=== PATIENT | female | born 1955 | race Caucasian/White ===

== ENCOUNTER → 2019-11-25 14:18 | Outpatient (BNVA) | payer BC, SELFPAY | PROVIDERS: Visit Provider Family Medicine | DX: E11.9 Type 2 diabetes mellitus without complications (principal); K21.9 Gastro-esophageal reflux disease without esophagitis; I10 Essential (primary) hypertension | CPT/HCPCS: 80053; 80061; 84443 ==

== ENCOUNTER → 2020-10-10 10:18 | Outpatient (BNVA) | payer BC, SELFPAY | PROVIDERS: Visit Provider Family Medicine | DX: E11.9 Type 2 diabetes mellitus without complications (principal); E78.2 Mixed hyperlipidemia; I10 Essential (primary) hypertension | CPT/HCPCS: 80053; 80061; 83036; 84443; 85025 ==

== ENCOUNTER → 2021-01-04 09:55 | Outpatient (BNVA) | payer BC, SELFPAY | PROVIDERS: Visit Provider Family Medicine | DX: M79.675 Pain in left toe(s) (principal) | CPT/HCPCS: 73630 ==

== ENCOUNTER 2021-03-28 07:43 | Outpatient (CLI) | payer BC, SELFPAY ==
--- NOTE | 2021-03-28 08:00 | US_ITS ---
WS: [id number] INDICATION: Left foot pain TECHNIQUE: Ultrasound left foot FINDINGS: Normal phalangeal soft tissues. No solid phalangeal lesions suspicious for Martin's neuroma . Hypoechoic collection that appears to represent benign fluid with through transmission along the fore foot at the level of the metatarsals measuring 5.2 x 3.6 x 4.5 mm. This likely represents fluid along the tendon sheath. US/US soft tissue/extremity 58032 IMPRESSION: 1. No evidence of solid phalangeal lesion or Martin's neuroma. 2. Hypoechoic fluid collection along the forefoot at the level of the metatars als likely represents benign fluid along the tendon sheath between the second a nd third metatarsal. 3. No other suspicious findings.
== END 2021-03-28 07:44 | disposition home or self-care (01) ==
LOC: RAD 07:45
PROVIDERS: Visit Provider Podiatrist Foot & Ankle Surgery
DX: M79.605 Pain in left leg (principal)
CPT/HCPCS: 76882

== ENCOUNTER → 2021-04-26 18:56 | Outpatient (BNVA) | payer BC, SELFPAY | PROVIDERS: Visit Provider Family Medicine | DX: Z09 Encounter for follow-up examination after completed treatment for conditions other than malignant neoplasm (principal); E04.9 Nontoxic goiter, unspecified; I10 Essential (primary) hypertension; R91.8 Other nonspecific abnormal finding of lung field | CPT/HCPCS: 84439; 84443; 84481 ==

== ENCOUNTER → 2021-06-07 09:58 | Outpatient (BNVA) | payer BC, SELFPAY | PROVIDERS: PCP Family Medicine; Visit Provider Internal Medicine Critical Care Medicine | DX: R91.8 Other nonspecific abnormal finding of lung field (principal); Z20.822 Contact with and (suspected) exposure to COVID-19 | CPT/HCPCS: 87635 ==

== ENCOUNTER 2021-06-12 06:58 | Day surgery (SDC) | payer BC, SELFPAY ==
[2021-06-08 08:30] VITALS: BMI 39.1
[2021-06-12 07:13] VITALS: BP 112/80; PULSE 137; RESP 24; TEMP 36.8; O2SAT 94
--- NOTE | 2021-06-12 07:26 | ECG_ITS ---
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 Measurements Intervals [place] Rate: 169 P: [place]: QRS: 53 QRSD: 112 T: -62 QT: 251 QTc: 422 Interpretive Statements ATRIAL FIBRILLATION WITH RAPID VENTRICULAR RESPONSE INCOMPLETE RIGHT BUNDLE BRANCH BLOCK [90+ ms QRS DURATION, TERMINAL R IN V1/V2, 40+ ms S IN I/aVL/V4/V5/V6] ST DEVIATION AND MODERATE T-WAVE ABNORMALITY, CONSIDER LATERAL ISCHEMIA [-0.1+ mV T-WAVE IN I/aVL/V5/V6] CRITICAL TEST RESULT No previous ECG available for comparison Electronically Signed On 06-12-2021 23:48:13 CDT by Shari Starks M.D. [id number]
[2021-06-12 07:54] LABS: Glucose Point of Care 118 mg/dL (70-110)
[2021-06-12 08:13] VITALS: BP 117/84; PULSE 165; RESP 25; O2SAT 96
--- NOTE | 2021-06-12 08:29 | ANES.PREANE2 ---
Pre-Anesthetic Assessment Pre-Anesthetic Assessment: Height/Weight: Height 1.7 m Weight 113.398 kg Temp Pulse Resp BP Pulse Ox 98.2 F 165 H 25 H 117/84 96 06/12/21 07:13 06/12/21 08:13 06/12/21 08:13 06/12/21 08:13 06/12/21 08:13 Preop Diagnosis: Suspected lung cancer Proposed Procedure: Operation Date: 06/12/21 08:25 Proposed Procedures p Ebus(Not Applicable) - Chrissy Ricci MD Was Beta Steven taken within 24 hours: N/A Was Clonidine taken within 24 hours: N/A Last intake: Intake Last Liquid Date 06/11/21 Last Liquid Time 21:00 Last Solid Date 06/11/21 Last Solid Time 21:00 Social: Social History: Tobacco and No alcohol Exam: Pre-Anes Outpt Exam: alert, oriented x 3 and clear to auscultation bilaterally Additional Exam Findings (including area of procedure): tachy, sounds regular Airway: Submandibular: WNL Cervical ROM: WNL MP: 2 Dentition: False Pulmonary: Pulmonary: COPD Comments: Lung mass CV/HEM: CV/HEM: Afib and HTN Comments: EKG showed a.fib with RVR (rate 179) GI: GI: GERD Metabolic: Metabolic: DM and Morbid obesity Neuropsych: Neuropsych: Anxiety Anesthetic Plan: ASA status: 3 Anesthesia: Anesthesia Evaluation Other: Case postponed, gave bolus of IV NS 500mls, bolused 10mg Cardizem--brief hypotension with bolus--patient to ED PFSH Anesthesia PFSH: Medical History Anxiety Diabetes GERD (gastroesophageal reflux disease) Hyperlipidemia Hypertension Surgical History History of cholecystectomy History of hysterectomy Family History Other Cancer Social History Smoking and tobacco status: former smoker Quit status (tobacco): has quit using tobacco Year quit tobacco: 2015 Former quit date comment: Hx of 1 PPD x 45 Years Second hand smoke exposure: No Smoking risk assessment/counseling performed?: No Alcohol intake: never Counseling given: No Counseling given: No Lives independently: Yes Household members: spouse Marital status: Current occupational status: retired History of recent travel: No Current gender identity: Female Data Anesthesia Other Labs: Laboratory Results - last 48 hr 06/12/21 07:51 POC Glucose 118 H Cardiac Studies: No Data to Display
== END 2021-06-12 08:40 | disposition home or self-care (01) ==
PROVIDERS: PCP Family Medicine; Visit Provider Internal Medicine Critical Care Medicine
PROC: BB4BZZZ Ultrasonography of Pleura (ICD-10-PCS; principal; 2021-06-12 08:15)
DX: Z01.818 Encounter for other preprocedural examination (principal); R91.1 Solitary pulmonary nodule; J44.9 Chronic obstructive pulmonary disease, unspecified; I48.91 Unspecified atrial fibrillation; I10 Essential (primary) hypertension; K21.9 Gastro-esophageal reflux disease without esophagitis; E11.9 Type 2 diabetes mellitus without complications; E66.01 Morbid (severe) obesity due to excess calories; Z68.39 Body mass index [BMI] 39.0-39.9, adult; F41.9 Anxiety disorder, unspecified; E78.5 Hyperlipidemia, unspecified; Z87.891 Personal history of nicotine dependence
CPT/HCPCS: 36416; 82962; 93005; 96374; J3490

== ENCOUNTER 2021-06-12 08:33 | Inpatient (IN) | payer BC, SELFPAY ==
[2021-06-12] VITALS (97 sets, daily range): BP systolic 86–159; BP diastolic 57–110; PULSE 0–164; RESP 16–41; TEMP 36.6–37.3; O2SAT 82–98; BMI 36.0
--- NOTE | 2021-06-12 08:40 | XR_ITS ---
WS: [id number] XR chest 1V portable [id number] REASON FOR EXAM: dyspnea/cough FINDINGS: Tortuous thoracic aorta with heart size at the upper limits of normal. Calcified granulomatous changes in both hemithoraces. Blunting of the left costophrenic angle. Interstitial infiltrative changes of unknown chronicity in t he left lung base and periphery of the mid left lung. No definite abnormality in the right lung. Degenerative changes in the thoracic spine and shoulders. XR/XR chest 1V portable [id number] IMPRESSION: Infiltrate of unknown chronicity in the left lower lung but compatible with acu te or subacute pneumonitis. Possible small left pleural effusion.
--- NOTE | 2021-06-12 08:40 | ECG_ITS ---
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 Measurements Intervals [place] Rate: 163 P: [place]: QRS: 58 QRSD: 84 T: -87 QT: 257 QTc: 423 Interpretive Statements ATRIAL FIBRILLATION WITH RAPID VENTRICULAR RESPONSE WITH ABERRANT CONDUCTION OR VENTRICULAR PREMATURE COMPLEXES NONSPECIFIC ST & T-WAVE ABNORMALITY CRITICAL TEST RESULT Compared to ECG 06/12/2021 07:42:44 Ventricular premature complex(es) now present Aberrant conduction of supraventricular beat(s) now present Incomplete right bundle-branch block no longer present Possible ischemia no longer present T-wave abnormality still present Electronically Signed On 06-12-2021 23:11:08 CDT by Shari Starks M.D. [id number]
[2021-06-12 08:56] LABS: Basophils % 0.3 %; Eosinophils % 0.3 %; Hematocrit 33.5 % (37.0-47.0); Hemoglobin 11.1 g/dL (11.5-15.3); Lymphocytes # 1.9 10^3/uL (0.8-4.8); Lymphocytes % 15.2 %; Mean Corpuscular HGB Conc 33.1 g/dL (30.0-36.0); Mean Corpuscular Hemoglobin 30.3 pg (28.0-34.0); Mean Corpuscular Volume 91.5 fl (81-99); Mean Platelet Volume 9.7 fL (7.4-10.4); Neutrophils # 9.47 10^3/uL (1.8-7.7); Neutrophils % 75.6 %; Nucleated Red Blood Cells % 0 %; Platelet Count 419 10^3/cmm (130-400); Red Blood Count 3.66 10^6/uL (4.1-5.3); Red Cell Distribution Width 12.5 % (12.1-15.1); White Blood Count 12.5 10^3/uL (4.0-10.0)
[2021-06-12 09:17] LABS: Alanine Aminotransferase 26 U/L (0-33); Albumin Level 3.4 g/dL (3.5-5.2); Alkaline Phosphatase 104 IU/L (35-105); Anion Gap 16.6 (5-19); Aspartate Amino Transferase 13 U/L (0-32); Blood Urea Nitrogen 20 mg/dL (8-23); Calcium 8.7 mg/dL (8.5-10.5); Carbon Dioxide 25 mmol/L (22-29); Chloride 103 mmol/L (98-107); Globulin 2.8 g/dL (1.3-4.6); Glomerular Filtration Rate 124.2 mL/min (90-130); Glucose 119 mg/dL (65-115); Osmolality Calculated 294 mOsm/kg (285-295); Potassium 4.6 mmol/L (3.5-5.1); Sodium 140 mmol/L (136-145); Total Bilirubin 0.2 mg/dL (0.15-1.2); Total Protein 6.2 g/dL (6.6-8.7)
[2021-06-12 09:25] LABS: Troponin(5th) Baseline 16 ng/L (0-10)
--- NOTE | 2021-06-12 09:57 | W.ED.CHESTPA ---
HPI - Chest Pain General: Chief Complaint: Chest Pain Stated Complaint: fast HR Time Seen by Provider: 06/12/21 08:36 History of Present Illness: HPI narrative: 66-year-old female presents emergency room from the GI Lab. On arrival there she is complaining of chest pain and palpitations and is in A. fib with RVR. Prior to arrival here she was given 10 mg of IV Cardizem with minimal response. She states she has felt poorly for the last several days including having palpitations some mild orthopnea. She is not previously been known to have atrial fibrillation. MD complaint: chest discomfort Pertinent past history: coronary artery disease Onset (ago): hour(s) Timing of current episode: constant Prior episodes: No Onset: during rest Pain location: substernal Pain radiation: left arm Severity: moderate Quality: heaviness Relieving factors: nothing Exacerbating factors: nothing Associated symptoms: Reports dyspnea, nausea and palpitations; Deny abdominal pain, diaphoresis, fever(s), leg edema, sense of impending doom, syncope or vomiting Treatment prior to arrival: other (10 mg diltiazem IV) Review of Systems Const: Denies: fever(s) or diaphoresis ENMT: Denies: throat pain, ear or mastoid pain, nasal discharge or nasal congestion Card: Reports: palpitations; Denies: syncope Resp: Reports: dyspnea GI: Reports: nausea; Denies: abdominal pain or vomiting : Denies: flank pain, difficulty voiding, dysuria, urinary frequency or urinary urgency Skin/Breast: Denies: rash or pruritus PFS ED PFSH: Medical History (Updated 06/12/21 @ 15:11 by Cj Polk DO) Anxiety Diabetes GERD (gastroesophageal reflux disease) Hyperlipidemia Hypertension Mass of lung Surgical History History of cholecystectomy History of hysterectomy Family History Other Cancer Social History Smoking and tobacco status: former smoker Quit status (tobacco): has quit using tobacco Year quit tobacco: 2015 Former quit date comment: Hx of 1 PPD x 45 Years Second hand smoke exposure: No Smoking risk assessment/counseling performed?: No Alcohol intake: never Counseling given: No Counseling given: No Lives independently: Yes Household members: spouse Marital status: Current occupational status: retired History of recent travel: No Current gender identity: Female Physical Exam Const: COMMON NORMALS: no acute distress GENERAL APPEARANCE: cooperative and comfortable ORIENTATION/CONSCIOUSNESS: Yes awake, Yes oriented to person, Yes oriented to place and Yes oriented to time HENMT: COMMON NORMALS: normocephalic, atraumatic and hearing grossly normal bilaterally HEAD & SCALP: normocephalic and atraumatic Resp: AUSCULTATION: wheezes and diminished lung sounds Cardio: COMMON NORMALS: No murmurs present (Cardio) RATE: tachycardic RHYTHM: abnormal rhythm irregularly irregular GI: COMMON NORMALS: Soft to palpation and No hepatosplenomegaly present AUSCULTATION: Yes normoactive bowel sounds PALPATION: Yes Soft to palpation, No Tenderness to palpation present (GI), No Guarding due to palpation present (GI) and Yes No hepatosplenomegaly present Extremity: COMMON NORMALS: normal to inspection, capillary refill normal, no clubbing, cyanosis or edema, no calf tenderness and no pedal edema Neuro: SENSORIUM/ORIENTATION: Yes oriented to person, Yes oriented to place and Yes oriented to time Skin: COMMON NORMALS: no rashes or lesions noted GENERAL SKIN EXAM: no rashes or lesions noted Course Vital Signs: Vital signs: Vital Signs Temperature 97.9 F 06/12/21 08:34 Pulse Rate 144 H 06/12/21 14:05 Respiratory Rate 33 H 06/12/21 14:05 Blood Pressure 112/97 06/12/21 14:05 Pulse Oximetry 90 06/12/21 14:05 MDM - Chest Pain MDM Narrative: Medical decision making narrative: Initially rebolused with Cardizem and started to drip she maxed out on that and was not rate controlled then we changed to esmolol. This also did not control her rate. Labs imaging and EKGs reviewed as on the chart discussed with Dr. Satniago will admit. With a time we maxed out on the esmolol he had seen the patient we changed amiodarone and digoxin patient will be admitted to the ICU orders are written. Lab Data: Labs: Lab Results 06/12/21 06/12/21 06/12/21 Range/Units 08:45 08:45 08:45 WBC 12.5 H (4.0-10.0) 10^3/ uL RBC 3.66 L (4.1-5.3) 10^6/u L Hgb 11.1 L (11.5-15.3) g/dL Hct 33.5 L (37.0-47.0) % MCV 91.5 (81-99) fl MCH 30.3 (28.0-34.0) pg MCHC 33.1 (30.0-36.0) g/dL RDW 12.5 (12.1-15.1) % Plt Count 419 H (130-400) 10^3/c mm MPV 9.7 (7.4-10.4) fL Neut % (Auto) 75.6 % Lymph % (Auto) 15.2 % Owen % (Auto) 8.0 % Eos % (Auto) 0.3 % Baso % (Auto) 0.3 % Neut # (Auto) 9.47 H (1.8-7.7) 10^3/u L Lymph # (Auto) 1.9 (0.8-4.8) 10^3/u L Owen # (Auto) 1.0 H (0.2-0.9) 10^3/u L Eos # (Auto) 0.0 (0.0-0.8) 10^3/u L Baso # (Auto) 0.0 (0.0-0.1) 10^3/u L Nucleated RBC % (a uto) 0 % Nucleated RBCs # 0.0 /100WBC PT (12.1-14.9) SECO NDS INR (0.8-1.2) APTT (23.9-36.7) SECO NDS Sodium 140 (136-145) mmol/L Potassium 4.6 (3.5-5.1) mmol/L Chloride 103 (98-107) mmol/L Carbon Dioxide 25 (22-29) mmol/L Anion Gap 16.6 (5-19) BUN 20 (8-23) mg/dL Creatinine 0.5 (0.5-0.9) mg/dL GFR Calculation 124.2 (90-130) mL/min Glucose 119 H (65-115) mg/dL Calculated Osmolal ity 294 (285-295) mOsm/k g Calcium 8.7 (8.5-10.5) mg/dL Magnesium (1.7-2.3) mg/dL Total Bilirubin 0.2 (0.15-1.2) mg/dL AST 13 (0-32) U/L ALT 26 (0-33) U/L Alkaline Phosphata se 104 (35-105) IU/L Troponin T Baselin e 16 H (0-10) ng/L Troponin T 120 Min [place] (0-10) ng/L Delta Troponin T (0-10) ABS# Total Protein 6.2 L (6.6-8.7) g/dL Albumin 3.4 L (3.5-5.2) g/dL Globulin 2.8 (1.3-4.6) g/dL 06/12/21 06/12/21 06/12/21 Range/Units 08:45 10:28 10:28 WBC (4.0-10.0) 10^3/ uL RBC (4.1-5.3) 10^6/u L Hgb (11.5-15.3) g/dL Hct (37.0-47.0) % MCV (81-99) fl MCH (28.0-34.0) pg MCHC (30.0-36.0) g/dL RDW (12.1-15.1) % Plt Count (130-400) 10^3/c mm MPV (7.4-10.4) fL Neut % (Auto) % Lymph % (Auto) % Owen % (Auto) % Eos % (Auto) % Baso % (Auto) % Neut # (Auto) (1.8-7.7) 10^3/u L Lymph # (Auto) (0.8-4.8) 10^3/u L Owen # (Auto) (0.2-0.9) 10^3/u L Eos # (Auto) (0.0-0.8) 10^3/u L Baso # (Auto) (0.0-0.1) 10^3/u L Nucleated RBC % (a uto) % Nucleated RBCs # /100WBC PT 14.00 (12.1-14.9) SECO NDS INR 1.05 (0.8-1.2) APTT 36.0 (23.9-36.7) SECO NDS Sodium (136-145) mmol/L Potassium (3.5-5.1) mmol/L Chloride (98-107) mmol/L Carbon Dioxide (22-29) mmol/L Anion Gap (5-19) BUN (8-23) mg/dL Creatinine (0.5-0.9) mg/dL GFR Calculation (90-130) mL/min Glucose (65-115) mg/dL Calculated Osmolal ity (285-295) mOsm/k g Calcium (8.5-10.5) mg/dL Magnesium 1.3 L (1.7-2.3) mg/dL Total Bilirubin (0.15-1.2) mg/dL AST (0-32) U/L ALT (0-33) U/L Alkaline Phosphata se (35-105) IU/L Troponin T Baselin e (0-10) ng/L Troponin T 120 Min [place] 14.51 H (0-10) ng/L Delta Troponin T -1.49 L (0-10) ABS# Total Protein (6.6-8.7) g/dL Albumin (3.5-5.2) g/dL Globulin (1.3-4.6) g/dL Discharge Plan Discharge Patient Disposition: Admitted As Inpatient Admit Provider: Efren Adorno Clinical Impression: Atrial fibrillation, Mass of lung, Diabetes, Hypertension Condition: Stable Coding Level of Care Code ED 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
[2021-06-12] MEDS: esmolol drip 2,500 MG/250 ML PREMIX 31.3 MG IV (10:24)
--- NOTE | 2021-06-12 11:05 | USCV_ITS ---
Carolann Murguia Age: 66 Gender: F : 1955 Exam Date: 06/12/2021 11:36 Ordering Phys: Cj Polk DO Technologist: Luca Briones [place] [facility] [place]: PERCARDIAL EFFUSION BP: / HR: Rhythm: Sinus Technical Quality: MEASUREMENTS (Male / Female) Normal Values FINDINGS Left Ventricle Normal left ventricular cavity size. Normal left ventricular systolic function. Left ventricular ejection fraction is estimated at 55 %. Right Ventricle Moderately increased right ventricular size. Right Atrium Moderately increased right atrial size. Left Atrium Mitral Valve Moderately thickened mitral valve. No mitral valve stenosis. Mild mitral valve regurgitation. Aortic Valve Tricuspid Valve Pulmonic Valve Pericardium Aorta CONCLUSIONS Limited echo 1-Normal left ventricular cavity size. Normal left ventricular systolic function. Left ventricular ejection fraction is estimated at 55 %. 2-Moderately increased right ventricular size. 3-Moderately increased right atrial size. 4-Moderately thickened mitral valve. No mitral valve stenosis. Mild mitral valve regurgitation. 5-There is no pericardial effusion. 6-There are no prior echocardiogram studies to compare. Vimal Miller MD (Electronically Signed) Final Date: 12 June 2021 20:08 S
[2021-06-12 11:09] LABS: Troponin 5 2HR 14.51 ng/L (0-10)
--- NOTE | 2021-06-12 11:17 | PM.HP ---
Providers/Chief Complaint Primary Care Provider: Isabella Perez MD Chief Complaint: fast HR History of Present Illness Carolann Murguia is a 66 year old female who reports she has not felt good in quite some time but it has been worse in the last 3 weeks. She reports she has had intermittent chest discomfort, shortness of breath, dizziness. She has recently been diagnosed with a left lung mass, with pericardial involvement and a small left pleural effusion. This was diagnosed by CT chest on April 22 at outside hospital. This 5.5 cm mass involving the left hilum was noted. No pulmonary embolism was present. A positive nodule on PET scan was also noted in the left vocal cord. Left hilar mass had activity on PET as well. Upon reporting to GI lab for bronchoscopy and possible biopsy today an elevated heart rate was noted. She denied any past history of atrial fibrillation or tachyarrhythmia. She was referred to the emergency department after 10 mg of Cardizem were given. In the emergency department, Cardizem drip was tried without improvement of heart rate so esmolol was initiated. I have been asked to see the patient for admission to ICU, and further treatment of her tachyarrhythmia. She denies any recent fevers. She has a recent negative Covid PCR for her bronchoscopy. She reports no exposure to Covid. She has not been vaccinated. Review of Systems General: Reports: 10 or more systems reviewed and unremarkable except in HPI and below Const: Reports: malaise; Denies: fever(s) or chills Eyes: Denies: change in vision ENMT: Denies: throat pain Card: Reports: chest pain, palpitations and lightheadedness Resp: Reports: dyspnea GI: Reports: nausea and constipation; Denies: abdominal pain or vomiting : Denies: flank pain Musc: Denies: neck pain Skin/Breast: Denies: rash Neuro: Reports: dizziness; Denies: headache(s) Psych: Reports: anxiety and depression Endo: Denies: polyuria [place]/Lymph: Denies: easy bruising All/Imm: Denies: urticaria Medications/Allergies Home Medications Medication Instructions Recorded Confirmed Last Taken Type aspirin 81 mg tablet,delayed 81 mg PO DAILY 05/31/21 06/12/21 06/10/21 History release hydrochlorothiazide 25 mg tablet 25 mg PO DAILY #30 tab 05/31/21 06/12/21 06/11/21 Rx olmesartan 20 mg tablet 20 mg PO DAILY #30 tab 05/31/21 06/12/21 06/11/21 Rx amoxicillin-pot clavulanate 1 tab PO BID 06/12/21 06/12/21 06/10/21 History buspirone 5 mg PO DAILY 06/12/21 06/12/21 06/11/21 History dexlansoprazole [Dexilant] 60 mg PO DAILY 06/12/21 06/12/21 06/11/21 History liraglutide [Victoza 3-Etienne] 1.8 mg SUBCUT DAILY 06/12/21 06/12/21 06/11/21 History metformin See Rx Instructions .ROUTE .COMPLEX 06/12/21 06/12/21 06/11/21 History paroxetine HCl 20 mg PO DAILY 06/12/21 06/12/21 06/11/21 History rosuvastatin 10 mg PO DAILY 06/12/21 06/12/21 06/11/21 History sucralfate 1 g PO QID 06/12/21 06/12/21 06/11/21 History Allergies Allergy/AdvReac Type Severity Reaction Status Date / Time cefdinir AdvReac stomach Verified 06/12/21 08:41 problems PFSH Acute PFSH: Medical History (Updated 06/12/21 @ 11:27 by Efren Adorno MD) Anxiety Diabetes GERD (gastroesophageal reflux disease) Hyperlipidemia Hypertension Mass of lung Surgical History History of cholecystectomy History of hysterectomy Family History Other Cancer Social History Smoking and tobacco status: former smoker Quit status (tobacco): has quit using tobacco Year quit tobacco: 2016 Former quit date comment: Hx of 1 PPD x 45 Years Second hand smoke exposure: No Smoking risk assessment/counseling performed?: No Alcohol intake: never Counseling given: No Counseling given: No Lives independently: Yes Household members: spouse Marital status: Current occupational status: retired History of recent travel: No Current gender identity: Female Vitals/I&O/Wt Last Vital Signs Temp 97.9 F 06/12/21 08:34 Pulse 155 H 06/12/21 10:10 Resp 22 H 06/12/21 10:10 BP 118/81 06/12/21 10:10 Pulse Ox 94 06/12/21 10:10 06/11/21 06/12/21 06/12/21 22:59 06:59 14:59 Intake Total 13.833 / 13.833 Balance 13.833 / 13.833 Weight last 48 hrs Weight 104.326 kg Physical Exam Narrative: EXAM NARRATIVE: General exam is an anxious white female, with elevated heart rate, who appears at least mildly short of breath. HEENT: Atraumatic and normocephalic. Oropharynx clear. Neck is supple no lymphadenopathy, thyromegaly Cardiovascular irregular, irregular with accelerated rate. No obvious murmur. Lungs diminished breath sounds bilaterally but no wheezes or crackles Abdomen is soft. Positive bowel sounds. Obese. No obvious organomegaly exam is deferred Extremities no cyanosis clubbing or edema, cap refill brisk Skin no rash Neuro no obvious focal deficits. Data : 06/12/21 08:45 06/12/21 08:45 Other data: EKG demonstrates atrial fibrillation with rapid ventricular response of approximately 145 with normal axis and nonspecific ST-T wave changes. Chest x-ray demonstrates obscuration of the left hemidiaphragm consistent with effusion/infiltrate. LFTs normal Troponin baseline of 16 with repeat of 14 Albumin 3.4 Calcium 8.7 Covid PCR June 07 not detected A&P Assessment and plan (1) Atrial fibrillation: With rapid ventricular rate TSH has already been checked Check magnesium Echocardiogram when able. For now echocardiogram to check for pericardial effusion. She has failed Cardizem. Esmolol is being titrated. Heart rate is still significantly high and blood pressure decreasing. Will give a small bolus of saline. Digoxin 500 mcg IV x1. I suspect we may need to initiate amiodarone if we do not see improvement in her heart rate following these measures. Continue serial troponins Heparin drip Consider cardiology consultation Status: Acute (2) Mass of lung: Undergoing work-up. Unfortunately did not have bronchoscopy and biopsy today. 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 Status: Acute (3) Constipation: Initiate MiraLAX twice daily Status: Acute (4) Diabetes: Sliding scale insulin Status: Acute Qualifiers: Diabetes mellitus type: type 2 Diabetes mellitus manager long term care insulin use: without manager long term care use Diabetes mellitus complication status: without complication Qualified Code(s): E11.9 - Type 2 diabetes mellitus without complications (5) Hypertension: Hold antihypertensives currently secondary to atrial fibrillation with rapid ventricular rate Status: Acute Qualifiers: Hypertension type: essential hypertension Qualified Code(s): I10 - Essential (primary) hypertension (6) Hyperlipidemia: Continue statin Status: Acute Qualifiers: Hyperlipidemia type: mixed hyperlipidemia Qualified Code(s): E78.2 - Mixed hyperlipidemia (7) Anxiety: continue home medications Status: Acute Additional A&P Information Full code Heparin for DVT prophylaxis Attestations Medical Necessity Statement*: Will need greater than 2 midnight stay for evaluation and treatment of atrial fibrillation with rapid ventricular rate. Time Spent in Patient Care: Greater than 35 minutes Critical Care Time: Critical Care Time (min): 64 Other Attestations: The high probability of a clinically significant, sudden or life threatening deterioration of the patient's [pulmonary, cardiac] system(s) required my full and direct attention, intervention and personal management. The critical care time is as shown. This time is in addition to time spent performing any reported procedures but includes the following: [x] Data and vital sign review and interpretation [x] Patient assessment, examination and intervention [x] Documentation [x] Medication orders and management Coding Level of Care Code Acute Data Integrity Consultant for [facility] Fwd Diagnoses Atrial fibrillation I48.91 Mass of lung R91.8 Constipation K59.00 Diabetes E11.9 Diabetes mellitus type: type 2 Diabetes mellitus penitentiary insulin use: without manager long term care use Diabetes mellitus complication status: without complication Hypertension I10 Hypertension type: essential hypertension Hyperlipidemia E78.2 Hyperlipidemia type: mixed hyperlipidemia Anxiety F41.9
[2021-06-12 11:22] LABS: Troponin 5 2HR Delta -1.49 ABS# (0-10)
[2021-06-12] MEDS: digoxin 250 mcg/ml INJ 2 mL 500 MCG IVP (11:42)
[2021-06-12] MEDS: sodium chloride 0.9% 500 ML IV (11:43)
[2021-06-12] MEDS: amiodarone 50 mg/mL SDV 3 mL 150 MG IVP (11:52)
[2021-06-12 12:12] LABS: Magnesium 1.3 mg/dL (1.7-2.3)
--- NOTE | 2021-06-12 12:18 | PM.CONSULT ---
Providers/Reason For Consult Consulting Physician/Specialty*: Cardiology Reason for Consult*: Atrial fibrillation with rapid ventricle response Attending Physician: Efren Adorno MD Primary Care Provider: Isabella Perez MD History of Present Illness History of Present Illness Carolann Murguia is a 66 year old female past medical history significant for hypertension diabetes mellitus obesity questionable sleep apnea and history of possible paroxysmal atrial fibrillation recently was diagnosed with lung tumor for that reason patient came in today for bronchoscopy and biopsy she was noted to be in A. fib with rapid ventricle response. It is the reason we have been asked to participate in her care. Medicine colleagues has tried calcium channel marie and beta-marie but heart rate did not slow down. When I saw the patient he was already on amiodarone drip and was given digoxin. According to the patient for the past few days she has been noticing worsening of shortness of breath and palpitation and racing of the heart she did not pay much attention. She also told me that for the past few years she has been feeling off-and-on palpitation pounding or racing of the heart. She is also very nervous and stressed out about her tumor. Review of Systems General: Reports: 10 or more systems reviewed and unremarkable except in HPI and below Const: Reports: malaise; Denies: fever(s), chills or diaphoresis Eyes: Denies: change in vision ENMT: Denies: throat pain, ear or mastoid pain, nasal discharge or nasal congestion Card: Reports: chest pain, palpitations and lightheadedness; Denies: syncope Resp: Reports: dyspnea GI: Reports: nausea and constipation; Denies: abdominal pain or vomiting : Denies: flank pain, difficulty voiding, dysuria, urinary frequency or urinary urgency Musc: Denies: neck pain Skin/Breast: Denies: rash or pruritus Neuro: Reports: dizziness; Denies: headache(s) Psych: Reports: anxiety and depression Endo: Denies: polyuria Jessee/Lymph: Denies: easy bruising All/Imm: Denies: urticaria Meds/Allergies Home Medications and Allergies Home Medications Medication Instructions Recorded Confirmed Last Taken Type aspirin 81 mg tablet,delayed 81 mg PO DAILY 05/31/21 06/12/21 06/10/21 History release hydrochlorothiazide 25 mg tablet 25 mg PO DAILY #30 tab 05/31/21 06/12/21 06/11/21 Rx olmesartan 20 mg tablet 20 mg PO DAILY #30 tab 05/31/21 06/12/21 06/11/21 Rx amoxicillin-pot clavulanate 1 tab PO BID 06/12/21 06/12/21 06/10/21 History buspirone 5 mg PO DAILY 06/12/21 06/12/21 06/11/21 History dexlansoprazole [Dexilant] 60 mg PO DAILY 06/12/21 06/12/21 06/11/21 History liraglutide [Victoza 3-Etienne] 1.8 mg SUBCUT DAILY 06/12/21 06/12/21 06/11/21 History metformin See Rx Instructions .ROUTE .COMPLEX 06/12/21 06/12/21 06/11/21 History paroxetine HCl 20 mg PO DAILY 06/12/21 06/12/21 06/11/21 History rosuvastatin 10 mg PO DAILY 06/12/21 06/12/21 06/11/21 History sucralfate 1 g PO QID 06/12/21 06/12/21 06/11/21 History Allergies Allergy/AdvReac Type Severity Reaction Status Date / Time cefdinir AdvReac stomach Verified 06/12/21 08:41 problems Current Medications Current Medications Generic Name Dose Route Start Last Admin Trade Name Yovaniq PRN Reason Stop Dose Admin Diltiazem HCl 125 mg/ Sodium 125 mls @ 0 mls/hr 06/12/21 09:00 06/12/21 10:25 Chloride IV 0 mg/hr .Q0M CECY 0 mls/hr Titration Protocol Per Protocol Esmolol HCl 2,500 mg in 250 mls @ 0 mls/hr 06/12/21 10:00 06/12/21 11:51 Brevibloc Drip IV 0 mcg/kg/min .Q0M CECY 0 mls/hr Titration Protocol Per Protocol Sodium Chloride 500 mls @ 0 mls/hr 06/12/21 11:30 06/12/21 11:43 Sodium Chloride 0.9% IV 500 mls/hr .Q0M CECY Administration Per Protocol Amiodarone HCl 900 mg/ 518 mls @ 0 mls/hr 06/12/21 11:45 06/12/21 12:02 Dextrose/ IV Miscellaneous IV 1 mg/min Supplies .Q0M CECY 34.53 mls/hr Administration Protocol Per Protocol PFSH Acute PFSH: Medical History (Updated 06/12/21 @ 21:03 by Vimal Miller MD) Anxiety Diabetes GERD (gastroesophageal reflux disease) Hyperlipidemia Hypertension Mass of lung Surgical History History of cholecystectomy History of hysterectomy Family History Other Cancer Social History Smoking and tobacco status: former smoker Quit status (tobacco): has quit using tobacco Year quit tobacco: 2016 Former quit date comment: Hx of 1 PPD x 45 Years Second hand smoke exposure: No Smoking risk assessment/counseling performed?: No Alcohol intake: never Counseling given: No Counseling given: No Lives independently: Yes Household members: spouse Marital status: Current occupational status: retired History of recent travel: No Current gender identity: Female Dietary Habits: Current diet type/program: regular Caffeine: Yes Vitals/I&O/Wt Last Vital Signs Temp 97.9 F 06/12/21 08:34 Pulse 125 H 06/12/21 12:03 Resp 26 H 06/12/21 12:03 BP 86/69 06/12/21 12:03 Pulse Ox 92 06/12/21 12:03 06/11/21 06/12/21 06/12/21 22:59 06:59 14:59 Intake Total 72.259 / 72.259 Balance 72.259 / 72.259 Weight last 48 hrs Weight 230 lb Physical Exam Narrative: EXAM NARRATIVE: GENERAL: Patient is alert, awake and oriented x3. NECK: No jugular vein distension. HEENT: No cyanosis. No icterus. No pallor. HEART: Irregularly S1 and S2. No murmur, rub or gallop. LUNGS: Decreased breath sound bilaterally. ABDOMEN: Soft, nontender and nondistended. Positive bowel sounds. No guarding, rebound or tenderness. CENTRAL NERVOUS SYSTEM: Grossly nonfocal. EXTREMITIES: Lower extremities without edema bilaterally. A&P Assessment and plan (1) Atrial fibrillation: Patient has atrial fibrillation with rapid ventricle response he may have underlying paroxysmal A. fib but due to tumor burden and inflammation in the vicinity of cardiac area and due to hyperadrenergic state secondary to intercurrent illness stress. I agree with medicine colleague strategy of using amiodarone along with digoxin. May consider adding anticoagulation with Lovenox. Echocardiogram will be obtained once patient slowed down to assess any structural problem with heart Status: Acute Qualifiers: Atrial fibrillation type: unspecified Qualified Code(s): I48.91 - Unspecified atrial fibrillation (2) Hypertension: Appear to be stable at the moment Status: Acute Qualifiers: Hypertension type: essential hypertension Qualified Code(s): I10 - Essential (primary) hypertension Consult Attestations Medical Necessity Statement: I am expecting her stay to cross more than 2 midnights. 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
[2021-06-12 13:34] LABS: INR 1.05 (0.8-1.2)
--- NOTE | 2021-06-12 14:40 | ECG_ITS ---
[facility] Test Date: 2021-06-12 Pat Name: Carolann Murguia Department: Room: [facility] Gender: Female Glass Maker: : 1955 Requested By: Cj Doshi Order Number: [id number] Yue MD: Shari Starks M.D. Measurements Intervals [place] Rate: 145 P: [place]: QRS: 52 QRSD: 88 T: -17 QT: 307 QTc: 478 Interpretive Statements ATRIAL FIBRILLATION WITH RAPID VENTRICULAR RESPONSE NONSPECIFIC T-WAVE ABNORMALITY Compared to ECG 06/12/2021 08:46:30 Ventricular premature complex(es) no longer present Aberrant conduction of supraventricular beat(s) no longer present T-wave abnormality still present Electronically Signed On 06-12-2021 23:50:30 CDT by Shari Starks M.D. [id number]
[2021-06-12] MEDS: heparin drip 25,000 UNIT/500 ML PREMIX 60.51 UNIT IV (14:52)
[2021-06-12 15:56] LABS: Troponin 5 6HR 15.56 ng/L (0-10)
[2021-06-12 15:59] LABS: Troponin 5 6HR Delta -0.44 ng/L (0-12)
[2021-06-12] MEDS: acetaminophen 325 mg Tablet 650 MG PO (16:49)
[2021-06-12 16:57] LABS: Glucose Point of Care 106 mg/dL (70-110)
[2021-06-12] MEDS: sucralfate 1 gm Tablet PO ×2 (17:33→21:20)
[2021-06-12] MEDS: polyethylene glycol 3350 Pkt 17 gm PO (17:33)
[2021-06-12 21:09] LABS: Glucose Point of Care 109 mg/dL (70-110)
[2021-06-12] MEDS: heparin 5,000 unit/mL INJ 1 mL IV (22:15)
[2021-06-13] VITALS (111 sets, daily range): BP systolic 93–169; BP diastolic 55–126; PULSE 80–157; RESP 16–31; TEMP 36.7–37.2; O2SAT 85–98
[2021-06-13 03:52] LABS: Basophils # 0.1 10^3/uL (0.0-0.1); Basophils % 0.4 %; Eosinophils # 0.1 10^3/uL (0.0-0.8); Eosinophils % 0.8 %; Hematocrit 38.6 % (37.0-47.0); Lymphocytes # 2.6 10^3/uL (0.8-4.8); Mean Corpuscular HGB Conc 28.5 g/dL (30.0-36.0); Mean Corpuscular Hemoglobin 30.2 pg (28.0-34.0); Mean Platelet Volume 9.9 fL (7.4-10.4); Monocytes # 1.1 10^3/uL (0.2-0.9); Neutrophils # 7.38 10^3/uL (1.8-7.7); Neutrophils % 65.4 %; Nucleated Red Blood Cells % 0 %; Platelet Count 283 10^3/cmm (130-400); Red Blood Count 3.64 10^6/uL (4.1-5.3); Red Cell Distribution Width 12.9 % (12.1-15.1); White Blood Count 11.3 10^3/uL (4.0-10.0)
[2021-06-13 04:04] LABS: Partial Thromboplastin Time 54.5 SECONDS (23.9-36.7)
[2021-06-13 04:23] LABS: Alanine Aminotransferase 25 U/L (0-33); Albumin Level 3.1 g/dL (3.5-5.2); Alkaline Phosphatase 104 IU/L (35-105); Anion Gap 18.5 (5-19); Aspartate Amino Transferase 17 U/L (0-32); Blood Urea Nitrogen 13 mg/dL (8-23); Calcium 8.3 mg/dL (8.5-10.5); Carbon Dioxide 20 mmol/L (22-29); Chloride 103 mmol/L (98-107); Globulin 2.8 g/dL (1.3-4.6); Glomerular Filtration Rate 124.2 mL/min (90-130); Glucose 110 mg/dL (65-115); Osmolality Calculated 285 mOsm/kg (285-295); Potassium 4.5 mmol/L (3.5-5.1); Sodium 137 mmol/L (136-145); Total Bilirubin 0.2 mg/dL (0.15-1.2); Total Protein 5.9 g/dL (6.6-8.7)
[2021-06-13] MEDS: heparin 5,000 unit/mL INJ 1 mL IV (06:23)
--- NOTE | 2021-06-13 07:00 | PC.NURSE ---
Shift Note Frequent safety and comfort rounds continue. Orders and/or nursing care completed as indicated. Patient monitored for response to intervention and treatment(s). Education provided includes[]. Patient and/or in store marketing representative [ResponseToTeaching]. Will continue to monitor. The patient remained in A-fib RVR for most of the night, and converted to a normal sinus rhythm at least once in the morning. Her other vitals were within normal limits and her night was uneventful. She remains on the Amiodarone drip, and Heparin drip. She has converted back to A-fib.
[2021-06-13] MEDS: heparin drip 25,000 UNIT/500 ML PREMIX 64.68 UNIT IV (08:13)
[2021-06-13] MEDS: BuSPIRONE 10 mg Tablet 5 MG PO (08:42)
[2021-06-13] MEDS: atorvastatin 40 mg Tablet PO (08:42)
[2021-06-13] MEDS: PARoxetine 20 mg Tablet PO (08:42)
[2021-06-13] MEDS: pantoprazole DR 40 mg Tablet PO (08:42)
[2021-06-13] MEDS: magnesium sulfate premix 2 GM/50 ML PIGGYBACK IV (08:42)
[2021-06-13] MEDS: sucralfate 1 gm Tablet PO ×4 (08:42→20:07)
[2021-06-13] MEDS: metoprolol tartrate 25 mg Tablet PO ×2 (08:42→20:07)
[2021-06-13] MEDS: aspirin 81 mg EC Tablet PO (08:42)
[2021-06-13] MEDS: digoxin 250 mcg/ml INJ 2 mL IVP (08:43)
--- NOTE | 2021-06-13 09:00 | PM.PN ---
Subjective Subjective: Interval history: Carolann reports she is doing okay. She is getting tired of the frequent blood draws. She feels less short of breath. Medications: Reviewed: Yes Vitals/I&O/Wt Last Vital Signs Temp 99.1 F 06/12/21 20:05 Pulse 140 H 06/13/21 08:20 Resp 23 H 06/13/21 08:20 BP 122/69 06/13/21 08:20 Pulse Ox 90 06/13/21 08:20 06/12/21 06/13/21 06/13/21 22:59 06:59 14:59 Intake Total 753.343 / 825.602 68.362 / 893.964 188.672 / 188.672 Output Total 400 / 400 Balance 353.343 / 425.602 68.362 / 493.964 188.672 / 188.672 Weight last 48 hrs Weight 104.326 kg Weight 104.326 kg Weight 104.326 kg Physical Exam Narrative: EXAM NARRATIVE: General exam no distress Neck is supple no lymphadenopathy, thyromegaly Cardiovascular irregular, irregular with accelerated rate. No obvious murmur. Lungs diminished breath sounds bilaterally but no wheezes or crackles Abdomen is soft. Positive bowel sounds. Obese. No obvious organomegaly Extremities no cyanosis clubbing or edema, cap refill brisk Data : 06/13/21 03:45 06/13/21 03:45 A&P Assessment and plan (1) Atrial fibrillation: With rapid ventricular rate TSH has already been checked Magnesium was low, and supplemented Echocardiogram did not demonstrate any significant pericardial effusion. EF was 55%, moderate increase in RV and right atrium size. Mild mitral regurg She has failed Cardizem. Esmolol associated with hypotension. Dose of digoxin was given, and amiodarone drip initiated. Heart rate is improved, but not ideal. Repeat digoxin 250 mcg IV x1. Initiate metoprolol 25 mg twice daily Appreciate cardiology consultation. Change heparin drip to therapeutic Lovenox Troponins did not have any significant delta Status: Acute Qualifiers: Atrial fibrillation type: unspecified Qualified Code(s): I48.91 - Unspecified atrial fibrillation (2) Mass of lung: Undergoing work-up. Unfortunately did not have bronchoscopy and biopsy today. 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 Status: Acute (3) Constipation: Initiate MiraLAX twice daily Status: Acute (4) Diabetes: Sliding scale insulin Status: Acute (5) Hypertension: Hold antihypertensives currently secondary to atrial fibrillation with rapid ventricular rate Status: Acute Qualifiers: Hypertension type: essential hypertension Qualified Code(s): I10 - Essential (primary) hypertension (6) Hyperlipidemia: Continue statin Status: Acute Qualifiers: Hyperlipidemia type: mixed hyperlipidemia Qualified Code(s): E78.2 - Mixed hyperlipidemia (7) Anxiety: continue home medications Status: Acute Additional A&P Information Full code Lovenox for DVT prophylaxis May transfer out of ICU to cardiac stepdown unit today. Attestations Medical Necessity Statement*: Needs continued hospital stay for control of atrial fibrillation with rapid ventricular rate. 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
--- NOTE | 2021-06-13 09:05 | PC.CHAP ---
Pastoral Care Encounter/Spiritual Assessment Type of Contact [] Declined medical billing specialist visit [] Patient/Family/Request visit [] Outpatient visit [] Follow-up visit [] Physician referral [] Code/Alert [x] Routine visit [] Staff referral [] Actively dying [] Patient sleeping [x] Family support [] [] Out of room [] Palliative care [] [] Receiving care in room [] Pre-surgical visit [] Trauma [] Long length of stay [x] ICU visit [] Other: Relational/Emotional Strength [] Patient feels connected with others/family/visitors/staff [] Distress [] Loneliness/isolation [] Abandonment Spirituality of Patient [x] Person of Tamera [] Attends Mandaeism of their Tamera [] Believes in Prayer [] Reads Bible or Holiness materials [] There are Spiritual issues to be addressed Corner Former Interventions [x] Prayer [x] Active listening [x] Non-anxious presence [x] Spiritual/emotional support [] Crisis/trauma care [] Spiritual counseling [] Bereavement support [] Provided bereavement packet [] Provided Bible/devotional materials [] Provided toy/stuffed animal, coloring book to patient or family member [] Provided Communion [] Anointing/[place] [] Salvation [x] Completed spiritual assessment [] Other: Impact on Illness or Injury [] Angry [] Fearful [] Anxious [] Often cries [] Exhaustion [] Unable to work [] Unable to attend zoroastrian [] Unable to walk/stand [] Unable to read [] Unable to drive [] Unable to eat/drink [] Unable to sleep [] Unable to be with family [] Patient intubated [] Other: Summary patient shows some fear... prayed for peace and strength during her test... spoke to .. loving couple Time spent with patient 10 min
--- NOTE | 2021-06-13 11:08 | PM.PN ---
Subjective Subjective: Interval history: Patient stable continues to be in A. fib however somewhat rate is better Medications: Reviewed: Yes Vitals/I&O/Wt Last Vital Signs Temp 98.9 F 06/13/21 10:00 Pulse 140 H 06/13/21 10:00 Resp 23 H 06/13/21 10:00 BP 122/69 06/13/21 10:00 Pulse Ox 90 06/13/21 10:00 06/12/21 06/13/21 06/13/21 22:59 06:59 14:59 Intake Total 753.343 / 825.602 68.362 / 893.964 188.672 / 188.672 Output Total 400 / 400 Balance 353.343 / 425.602 68.362 / 493.964 188.672 / 188.672 Weight last 48 hrs Weight 230 lb Weight 230 lb Weight 230 lb Physical Exam Narrative: EXAM NARRATIVE: GENERAL: Patient is alert, awake and oriented x3. NECK: No jugular vein distension. HEENT: No cyanosis. No icterus. No pallor. HEART: Irregularly S1 and S2. No murmur, rub or gallop. LUNGS: Decreased breath sound bilaterally. ABDOMEN: Soft, nontender and nondistended. Positive bowel sounds. No guarding, rebound or tenderness. CENTRAL NERVOUS SYSTEM: Grossly nonfocal. EXTREMITIES: Lower extremities without edema bilaterally. Data : 06/13/21 03:45 06/13/21 03:45 A&P Assessment and plan (1) Atrial fibrillation: Metoprolol has been added by medicine colleagues this morning, continue to titrate continue current regimen. We will continue IV amiodarone for now until unless she converted into sinus rhythm and then we will switch her to 400 mg twice daily of amiodarone. Status: Acute Qualifiers: Atrial fibrillation type: unspecified Qualified Code(s): I48.91 - Unspecified atrial fibrillation (2) Hypertension: Within normal limits. Status: Acute Qualifiers: Hypertension type: essential hypertension Qualified Code(s): I10 - Essential (primary) hypertension Attestations Medical Necessity Statement*: Patient require continuation hospitalization. 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
[2021-06-13 12:41] LABS: Glucose Point of Care 143 mg/dL (70-110)
[2021-06-13] MEDS: enoxaparin 100 mg/mL Syringe SUBCUT ×2 (13:22→23:34)
[2021-06-13] MEDS: acetaminophen 325 mg Tablet 650 MG PO (16:13)
[2021-06-13 17:37] LABS: Glucose Point of Care 125 mg/dL (70-110)
[2021-06-13 20:14] LABS: Glucose Point of Care 181 mg/dL (70-110)
[2021-06-14] VITALS (24 sets, daily range): BP systolic 102–139; BP diastolic 47–97; PULSE 67–141; RESP 16–93; TEMP 36.9–37.1; O2SAT 87–100
[2021-06-14 04:07] LABS: Basophils % 0.3 %; Eosinophils # 0.1 10^3/uL (0.0-0.8); Hematocrit 37.1 % (37.0-47.0); Hemoglobin 11.4 g/dL (11.5-15.3); Lymphocytes # 2.4 10^3/uL (0.8-4.8); Lymphocytes % 17.9 %; Mean Corpuscular HGB Conc 30.7 g/dL (30.0-36.0); Mean Corpuscular Hemoglobin 29.8 pg (28.0-34.0); Mean Corpuscular Volume 97.1 fl (81-99); Mean Platelet Volume 9.7 fL (7.4-10.4); Monocytes # 1.3 10^3/uL (0.2-0.9); Monocytes % 9.7 %; Neutrophils # 9.61 10^3/uL (1.8-7.7); Neutrophils % 70.6 %; Nucleated Red Blood Cells % 0 %; Platelet Count 383 10^3/cmm (130-400); Red Blood Count 3.82 10^6/uL (4.1-5.3); Red Cell Distribution Width 12.5 % (12.1-15.1); White Blood Count 13.6 10^3/uL (4.0-10.0)
[2021-06-14 04:25] LABS: Alanine Aminotransferase 27 U/L (0-33); Albumin Level 3.2 g/dL (3.5-5.2); Alkaline Phosphatase 119 IU/L (35-105); Anion Gap 15.7 (5-19); Aspartate Amino Transferase 15 U/L (0-32); Blood Urea Nitrogen 15 mg/dL (8-23); Calcium 9.2 mg/dL (8.5-10.5); Carbon Dioxide 26 mmol/L (22-29); Chloride 102 mmol/L (98-107); Globulin 3.9 g/dL (1.3-4.6); Glomerular Filtration Rate 100.6 mL/min (90-130); Glucose 126 mg/dL (65-115); Magnesium 1.8 mg/dL (1.7-2.3); Osmolality Calculated 290 mOsm/kg (285-295); Potassium 4.7 mmol/L (3.5-5.1); Sodium 139 mmol/L (136-145); Total Bilirubin 0.2 mg/dL (0.15-1.2); Total Protein 7.1 g/dL (6.6-8.7)
--- NOTE | 2021-06-14 06:15 | NUR.SHIFT ---
Patient alternated between NSR and afib throughout shift, otherwise VSS. Afib was controlled until about 0430, lab was at bedside and after multiple attempts able to get labs, however during process patient became agitated. Afib returned to controlled approx 1 hour later. Patient request to have labs drawn later in the morning. Up with minimal assist. 2L NC. Will continue to monitor.
[2021-06-14 07:43] LABS: Glucose Point of Care 136 mg/dL (70-110)
[2021-06-14] MEDS: polyethylene glycol 3350 Pkt 17 gm PO ×2 (08:50→18:11)
[2021-06-14] MEDS: atorvastatin 40 mg Tablet PO (08:50)
[2021-06-14] MEDS: pantoprazole DR 40 mg Tablet PO (08:51)
[2021-06-14] MEDS: sucralfate 1 gm Tablet PO ×4 (08:51→20:35)
[2021-06-14] MEDS: PARoxetine 20 mg Tablet PO (08:52)
[2021-06-14] MEDS: BuSPIRONE 10 mg Tablet 5 MG PO (08:52)
[2021-06-14] MEDS: aspirin 81 mg EC Tablet PO (08:52)
[2021-06-14] MEDS: metoprolol tartrate 50 mg Tablet PO ×2 (08:52→20:35)
--- NOTE | 2021-06-14 09:11 | PM.PN ---
Subjective Subjective: Interval history: Patient is converted in sinus rhythm. Feeling better. Medications: Reviewed: Yes Vitals/I&O/Wt Last Vital Signs Temp 98.8 F 06/14/21 07:57 Pulse 109 H 06/14/21 06:00 Resp 22 H 06/14/21 06:00 BP 135/72 06/14/21 06:00 Pulse Ox 94 06/14/21 06:00 06/13/21 06/14/21 06/14/21 22:59 06:59 14:59 Intake Total 997.844 / 1736.516 300 / 2036.516 Output Total 600 / 600 Balance 397.844 / 1136.516 300 / 1436.516 Weight last 48 hrs Weight 229 lb Weight 230 lb Weight 230 lb Physical Exam Narrative: EXAM NARRATIVE: GENERAL: Patient is alert, awake and oriented x3. NECK: No jugular vein distension. HEENT: No cyanosis. No icterus. No pallor. HEART: Regular S1 and S2. No murmur, rub or gallop. LUNGS: Decreased breath sound bilaterally. ABDOMEN: Soft, nontender and nondistended. Positive bowel sounds. No guarding, rebound or tenderness. CENTRAL NERVOUS SYSTEM: Grossly nonfocal. EXTREMITIES: Lower extremities without edema bilaterally. Data : 06/14/21 03:57 06/14/21 03:57 A&P Assessment and plan (1) Atrial fibrillation: Patient is converted into his we will switch patient to amiodarone 400 mg twice a day. Continue metoprolol which may will be reduced to 25 mg twice a day. Continue anticoagulation. Patient is awaiting biopsy of the lung Status: Acute Qualifiers: Atrial fibrillation type: unspecified Qualified Code(s): I48.91 - Unspecified atrial fibrillation (2) Hypertension: Within normal limits. Status: Acute Qualifiers: Hypertension type: essential hypertension Qualified Code(s): I10 - Essential (primary) hypertension Attestations Medical Necessity Statement*: Patient require continuation of hospitalization for above defined care. 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
[2021-06-14] MEDS: amiodarone 200 mg Tablet 400 MG PO ×2 (09:57→18:12)
--- NOTE | 2021-06-14 11:19 | P.PN_ITS ---
Subjective Subjective: Interval history: Carolann reports she feels a little bit better. While I am in the room talking with her she converted to sinus rhythm. No chest discomfort. She still short of breath. Very anxious regarding her lung tumor. Medications: Reviewed: Yes Vitals/I&O/Wt Last Vital Signs Temp 98.8 F 06/14/21 07:57 Pulse 92 06/14/21 08:14 Resp 20 H 06/14/21 08:14 BP 120/73 06/14/21 08:14 Pulse Ox 92 06/14/21 08:14 06/13/21 06/14/21 06/14/21 22:59 06:59 14:59 Intake Total 997.844 / 1736.516 300 / 2036.516 Output Total 600 / 600 Balance 397.844 / 1136.516 300 / 1436.516 Weight last 48 hrs Weight 103.873 kg Weight 104.326 kg Weight 104.326 kg Physical Exam Narrative: EXAM NARRATIVE: General exam anxious Neck is supple no lymphadenopathy, thyromegaly Cardiovascular irregular, irregular with accelerated rate. No obvious murmur. Lungs diminished breath sounds bilaterally but no wheezes or crackles Abdomen is soft. Positive bowel sounds. Obese. No obvious organomegaly Extremities no cyanosis clubbing or edema, cap refill brisk Data : 06/14/21 03:57 06/14/21 03:57 A&P Assessment and plan (1) Atrial fibrillation: With rapid ventricular rate TSH has already been checked Magnesium was low, and supplemented Echocardiogram did not demonstrate any significant pericardial effusion. EF was 55%, moderate increase in RV and right atrium size. Mild mitral regurg She has failed Cardizem. Esmolol associated with hypotension. Dose of digoxin was given, and amiodarone drip initiated. Heart rate is improved, but not ideal. Continue metoprolol Convert amiodarone to oral Appreciate cardiology consultation. Lovenox for anticoagulation. Hold after midnight for lung biopsy tomorrow. Troponins did not have any significant delta Status: Acute Qualifiers: Atrial fibrillation type: unspecified Qualified Code(s): I48.91 - Unspecified atrial fibrillation (2) Mass of lung: Undergoing work-up. Bronchoscopy with biopsy planned for tomorrow. Status: Acute (3) Constipation: Initiate MiraLAX twice daily Status: Acute (4) Diabetes: Sliding scale insulin Status: Acute (5) Hypertension: Hold antihypertensives currently secondary to atrial fibrillation with rapid ventricular rate Status: Acute Qualifiers: Hypertension type: essential hypertension Qualified Code(s): I10 - Essential (primary) hypertension (6) Hyperlipidemia: Continue statin Status: Acute Qualifiers: Hyperlipidemia type: mixed hyperlipidemia Qualified Code(s): E78.2 - Mixed hyperlipidemia (7) Anxiety: continue home medications Status: Acute Additional A&P Information Full code Lovenox for DVT prophylaxis. Hold evening dose for bronchoscopy with biopsy tomorrow. May transfer out of ICU to cardiac stepdown unit today. Attestations Medical Necessity Statement*: Needs continued hospitalization for evaluation of lung tumor, close monitoring of atrial fibrillation with conversion to p.o. amiodarone. 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
[2021-06-14 11:26] LABS: Glucose Point of Care 134 mg/dL (70-110)
[2021-06-14] MEDS: acetaminophen 325 mg Tablet 650 MG PO (11:29)
[2021-06-14] MEDS: enoxaparin 100 mg/mL Syringe SUBCUT (11:36)
[2021-06-14 18:04] LABS: Glucose Point of Care 129 mg/dL (70-110)
--- NOTE | 2021-06-14 19:26 | PC.NURSE ---
Shift Note: Pt converted to sinus rhythm before noon. Amiodarone gtt stopped 1.5 hrs after PO given as ordered. She received metoprolol 50mg this am. Lovenox around noon. She had a headache this am, which she requested Tylenol. She napped this afternoon after which she stated she felt much better. She is still worry about upcoming procedure and outcomes. Dr Adorno talked with pt at length about her situation. She is scheduled for bronchoscopy in the am. Frequent safety and comfort rounds continue. Orders and/or nursing care completed as indicated. Patient monitored for response to intervention and treatment(s). Education provided includes Amiodarone, Metoprolol, Lovenox, Bronchoscopy, and afib Patient and/or public service representative asked questions and verbalized understanding. Will continue to monitor.
[2021-06-14 20:33] LABS: Glucose Point of Care 212 mg/dL (70-110)
[2021-06-15] VITALS (18 sets, daily range): BP systolic 110–154; BP diastolic 63–95; PULSE 74–132; RESP 18–34; TEMP 36.1–37.2; O2SAT 88–98
[2021-06-15 06:18] LABS: Glucose Point of Care 119 mg/dL (70-110)
--- NOTE | 2021-06-15 06:29 | PM.CONSULT ---
Providers/Reason For Consult Consulting Physician/Specialty*: Pulmonary critical care medicine Reason for Consult*: Lung mass Attending Physician: Efren Adorno MD Primary Care Provider: Isabella Perez MD History of Present Illness History of Present Illness Carolann Murguia is a 66 year old female known to me from her previous office visit on May 31. I had evaluated the patient for suspected lung cancer. The patient presented to an emergency department in [place] on April 22 with chest pain. As a part of work-up the patient had a chest x-ray done which showed abnormalities. The patient subsequently underwent a CT scan of the chest on April 22. The CT scan revealed no pulmonary embolism. A 5.5 cm mass extending from the inferior hilum on the left side with pericardial involvement and trace left-sided pleural effusion was identified. The patient underwent a PET CT scan on April 27. A hypermetabolic mass in the left hilum was seen. Hypermetabolic focus in the left vocal cord was also seen. The patient had left hilar lymphadenopathy with an SUV of 16.9. The infrahilar mass had a SUV of 18.8. A PET positive nodule in the left vocal cord was also identified with an SUV of 9.2. The patient was scheduled for bronchoscopic evaluation on June 12. However, when the patient presented for the procedure she was found to be in A. fib with RVR with a heart rate of 170s. The patient was complaining of significant shortness of breath and after receiving Cardizem the patient became hypotensive and was eventually transferred to the emergency department. Since then, the patient was treated for A. fib. She had converted to sinus rhythm with amiodarone. Currently the patient is on amiodarone, and metoprolol. Her last dose of Lovenox was yesterday morning. The patient complains of chronic cough, sputum production and exertional shortness of breath. Review of Systems Narrative: General: No fevers chills night sweats Skin: No rash HEENT: No nasal congestion, rhinitis Respiratory: Please see my HPI. Cardiovascular: No chest pain Gastrointestinal: No abdominal pain, nausea, vomiting Musculoskeletal: No joint pain or swelling, Neurological: Patient is awake alert and oriented x3, no paralysis, gross motor function is normal. Psychiatric: Anxiety Meds/Allergies Home Medications and Allergies Home Medications Medication Instructions Recorded Confirmed Last Taken Type aspirin 81 mg tablet,delayed 81 mg PO DAILY 05/31/21 06/12/21 06/10/21 History release hydrochlorothiazide 25 mg tablet 25 mg PO DAILY #30 tab 05/31/21 06/12/21 06/11/21 Rx olmesartan 20 mg tablet 20 mg PO DAILY #30 tab 05/31/21 06/12/21 06/11/21 Rx amoxicillin-pot clavulanate 1 tab PO BID 06/12/21 06/12/21 06/10/21 History buspirone 5 mg PO DAILY 06/12/21 06/12/21 06/11/21 History dexlansoprazole [Dexilant] 60 mg PO DAILY 06/12/21 06/12/21 06/11/21 History liraglutide [Victoza 3-Etienne] 1.8 mg SUBCUT DAILY 06/12/21 06/12/21 06/11/21 History metformin See Rx Instructions .ROUTE .COMPLEX 06/12/21 06/12/21 06/11/21 History paroxetine HCl 20 mg PO DAILY 06/12/21 06/12/21 06/11/21 History rosuvastatin 10 mg PO DAILY 06/12/21 06/12/21 06/11/21 History sucralfate 1 g PO QID 06/12/21 06/12/21 06/11/21 History nystatin 100,000 unit/mL oral 5 ml PO QID #200 ml 06/14/21 Unknown Rx suspension Allergies Allergy/AdvReac Type Severity Reaction Status Date / Time cefdinir AdvReac stomach Verified 06/12/21 08:41 problems Current Medications Current Medications Generic Name Dose Route Start Last Admin Trade Name Yovaniq PRN Reason Stop Dose Admin Acetaminophen 650 mg 06/12/21 13:56 06/14/21 11:29 Acetaminophen 325 Mg Tablet PO 650 mg Q6H PRN Administration MILD PAIN Amiodarone HCl 400 mg 06/14/21 09:40 06/14/21 18:12 Amiodarone 200 Mg Tablet PO 400 mg BID CECY Administration Aspirin 81 mg 06/13/21 09:00 06/14/21 08:52 Aspirin 81 Mg Ec Tablet PO 81 mg DAILY CECY Administration Atorvastatin Calcium 40 mg 06/13/21 09:00 06/14/21 08:50 Atorvastatin 40 Mg Tablet PO 40 mg DAILY CECY Administration Buspirone HCl 5 mg 06/13/21 09:00 06/14/21 08:52 Buspirone 10 Mg Tablet PO 5 mg DAILY CECY Administration Enoxaparin Sodium 100 mg 06/13/21 12:00 06/14/21 11:36 Enoxaparin 100 Mg/Ml Syringe 1 mg/kg (100 mg) 100 mg SUBCUT Administration Q12H CECY Sodium Chloride 500 mls @ 0 mls/hr 06/12/21 11:30 06/13/21 12:43 Sodium Chloride 0.9% IV Infused .Q0M CECY Infusion Per Protocol Insulin Aspart 0 unit 06/12/21 13:56 06/14/21 20:35 Insulin Aspart 100 Unit/1 Ml SUBCUT 4 unit WM&BEDTIME CECY Administration Protocol Metoprolol Tartrate 50 mg 06/14/21 09:00 06/14/21 20:35 Metoprolol Tartrate 50 Mg Tablet PO 50 mg BID@0900,2100 CECY Administration Pantoprazole Sodium 40 mg 06/13/21 09:00 06/14/21 08:[address] 40 Mg Tablet PO 40 mg DAILY CECY Administration Paroxetine HCl 20 mg 06/13/21 09:00 06/14/21 08:52 Paroxetine 20 Mg Tablet PO 20 mg DAILY CECY Administration Polyethylene Glycol 17 gm 06/12/21 18:00 06/14/21 18:11 Polyethylene Glycol 3350 Pkt 17 Gm PO 17 gm BID CECY Administration Sucralfate 1 gm 06/12/21 13:56 06/14/21 20:35 Sucralfate 1 Gm Tablet PO 1 gm QID CECY Administration PFSH Acute PFSH: Medical History Anxiety Diabetes GERD (gastroesophageal reflux disease) Hyperlipidemia Hypertension Mass of lung Surgical History History of cholecystectomy History of hysterectomy Family History Other Cancer Social History Smoking and tobacco status: former smoker Quit status (tobacco): has quit using tobacco Year quit tobacco: 2015 Former quit date comment: Hx of 1 PPD x 45 Years Second hand smoke exposure: No Smoking risk assessment/counseling performed?: No Alcohol intake: never Counseling given: No Counseling given: No Lives independently: Yes Household members: spouse Marital status: Current occupational status: retired History of recent travel: No Current gender identity: Female Vitals/I&O/Wt Last Vital Signs Temp 97.9 F 06/15/21 06:00 Pulse 119 H 06/15/21 06:00 Resp 26 H 06/15/21 06:00 BP 110/79 06/15/21 06:00 Pulse Ox 92 06/15/21 06:00 06/14/21 06/14/21 06/15/21 14:59 22:59 06:59 Intake Total 473.774 / 707.983 5914 / 1473.774 150 / 1623.774 Balance 473.774 / 203.958 9755 / 1473.774 150 / 1623.774 Weight last 48 hrs Weight 228 lb Weight 229 lb Physical Exam Narrative: EXAM NARRATIVE: General: Patient is awake alert and oriented, in no acute distress. Neck: No JVD Respiratory: Auscultation: Bilateral clear to auscultation both anterior and posteriorly, no crackles wheezing or rhonchi Cardiovascular: Regular rate and rhythm, S1-S2 present, no murmur, no peripheral edema Abdomen: Soft, nontender, distended from obesity, positive bowel sound Musculoskeletal: No obvious joint deformity, normal gait Skin: No rash Lymphatic: The axillary and inguinal lymph node groups are not examined Neuro: Mental status is normal, no gross cranial nerve deficit, normal motor and coordination. A&P Assessment and plan (1) Mass of lung: This is 66-year-old lady with suspected lung cancer. The patient is currently in sinus rhythm. Her last dose of anticoagulation was yesterday. I have discussed the bronchoscopy and EBUS procedure with the patient and her again. The risks were discussed in detail. I am going to perform the procedure this morning. Status: Acute (2) Atrial fibrillation: The patient is currently in sinus rhythm. Hemodynamically stable. Status: Acute Qualifiers: Atrial fibrillation type: unspecified Qualified Code(s): I48.91 - Unspecified atrial fibrillation Coding Level of Care Code Acute [place] [facility] Diagnoses Mass of lung R91.8 Atrial fibrillation I48.91 Atrial fibrillation type: unspecified
--- NOTE | 2021-06-15 07:05 | P.ANESUD_ITS ---
Pre-Anesthetic Update Pre-Anesthetic Assessment: Date of Surgery/Procedure: 06/15/21 Preop Kourtney gnosis: Suspected lung cancer Proposed Procedure: Operation Date: 06/15/21 07:00 Proposed Procedures p Bronchoscopy(Not Applicable) - Chrissy Ricci MD s Ebus(Not Applicable) - Chrissy Ricci MD Any changes to Pre-Anesthetic Assessment?: Yes Labs Last 48hrs: Laboratory Results - last 48 hr 06/13/21 06/13/21 06/13/21 12:14 17:18 20:10 WBC RBC Hgb Hct MCV MCH MCHC RDW Plt Count MPV Neut % (Auto) Lymph % (Auto) Sanders % (Auto) Eos % (Auto) Baso % (Auto) Neut # (Auto) Lymph # (Auto) Sanders # (Auto) Eos # (Auto) Baso # (Auto) Nucleated RBC % (a uto) Nucleated RBCs # Sodium Potassium Chloride Carbon Dioxide Anion Gap BUN Creatinine GFR Calculation Glucose POC Glucose 143 H 125 H 181 H Calculated Osmolal ity Calcium Magnesium Total Bilirubin AST ALT Alkaline Phosphata se Total Protein Albumin Globulin 06/14/21 06/14/21 06/14/21 03:57 03:57 07:28 WBC 13.6 H RBC 3.82 L Hgb 11.4 L Hct 37.1 MCV 97.1 D MCH 29.8 MCHC 30.7 D RDW 12.5 Plt Count 383 D MPV 9.7 Neut % (Auto) 70.6 Lymph % (Auto) 17.9 Sanders % (Auto) 9.7 Eos % (Auto) 1.0 Baso % (Auto) 0.3 Neut # (Auto) 9.61 H Lymph # (Auto) 2.4 Sanders # (Auto) 1.3 H Eos # (Auto) 0.1 Baso # (Auto) 0.0 Nucleated RBC % (a uto) 0 Nucleated RBCs # 0.0 Sodium 139 Potassium 4.7 Chloride 102 Carbon Dioxide 26 Anion Gap 15.7 BUN 15 Creatinine 0.6 GFR Calculation 100.6 Glucose 126 H POC Glucose 136 H Calculated Osmolal ity 290 Calcium 9.2 Magnesium 1.8 Total Bilirubin 0.2 AST 15 ALT 27 Alkaline Phosphata se 119 H Total Protein 7.1 Albumin 3.2 L Globulin 3.9 06/14/21 06/14/21 06/14/21 11:24 18:01 20:30 WBC RBC Hgb Hct MCV MCH MCHC RDW Plt Count MPV Neut % (Auto) Lymph % (Auto) Sanders % (Auto) Eos % (Auto) Baso % (Auto) Neut # (Auto) Lymph # (Auto) Sanders # (Auto) Eos # (Auto) Baso # (Auto) Nucleated RBC % (a uto) Nucleated RBCs # Sodium Potassium Chloride Carbon Dioxide Anion Gap BUN Creatinine GFR Calculation Glucose POC Glucose 134 H 129 H 212 H Calculated Osmolal ity Calcium Magnesium Total Bilirubin AST ALT Alkaline Phosphata se Total Protein Albumin Globulin 06/15/21 06:13 WBC RBC Hgb Hct MCV MCH MCHC RDW Plt Count MPV Neut % (Auto) Lymph % (Auto) Sanders % (Auto) Eos % (Auto) Baso % (Auto) Neut # (Auto) Lymph # (Auto) Sanders # (Auto) Eos # (Auto) Baso # (Auto) Nucleated RBC % (a uto) Nucleated RBCs # Sodium Potassium Chloride Carbon Dioxide Anion Gap BUN Creatinine GFR Calculation Glucose POC Glucose 119 H Calculated Osmolal ity Calcium Magnesium Total Bilirubin AST ALT Alkaline Phosphata se Total Protein Albumin Globulin Vitals: Temperature 97 F L 06/15/21 06:35 Temperature Source Temporal Artery S can 06/15/21 06:35 Pulse Rate 126 H 06/15/21 06:35 Pulse Rhythm 06/14/21 07:54 Pulse Strength 3+ Normal 06/14/21 07:54 Respiratory Rate 18 06/15/21 06:35 Respiratory Effort Non-Labored 06/14/21 07:54 Respiratory Depth Normal 06/14/21 07:54 Respiratory Patter n 06/13/21 08:00 Blood Pressure 124/95 06/15/21 06:35 Blood Pressure Sherlyn n 104 06/15/21 06:35 Blood Pressure Pos ition Sitting 06/14/21 08:14 Pulse Oximetry 92 06/15/21 06:35 Oxygen Delivery Me thod 06/15/21 06:35 Oxygen Flow Rate 2 06/15/21 06:35 Sepsis Recent Feve r Within 48 Hours No 06/12/21 08:34 Exam: Pre-Anes Outpt Exam: alert, oriented x 3 and clear to auscultation bilaterally Additional Exam Findings (including area of procedure): tachy irregular but improved from earlier in the week, SOB improved; plan GA/LMA for EBUS and bx Cardiac Studies: No Data to Display
[2021-06-15] MEDS: sodium chloride 0.9% 1,000 ML 30 ML IV (08:15)
[2021-06-15] MEDS: lidocaine 1% INJ 20 mL XX (08:16)
--- NOTE | 2021-06-15 09:18 | PM.OP ---
Operative Report Date of procedure: June 15, 2021 Pre-op Diagnosis: Suspected lung cancer Post-op diagnosis: same Brief History: This is a 66-year-old lady undergoing bronchoscopic evaluation for suspected lung cancer Procedure: Name of the procedure: Bronchoscopy with inspection of the airway, bronchoalveolar lavage, endobronchial biopsies, endobronchial ultrasound-guided transbronchial needle aspiration of lymph nodes and control of bleeding. Indication: Suspected lung cancer Anesthesia: General anesthesia. Local anesthesia: The vocal cords, miguel in the right and left mainstem bronchi were anesthetized with 1% lidocaine, 6 mL. Description of the procedure: The procedure was explained to the patient and the consent was obtained. The patient was brought to the OR. The patient underwent laryngeal mask airway placement for general anesthesia. Following induction of general anesthesia, the bronchoscope was advanced through the LMA. Mild nodularity was noted in the left vocal cord. No exophytic lesion was seen. The bronchoscope was advanced through the vocal cords. The upper and lower trachea appeared to be normal. The miguel was splayed. The miguel, the right and left mainstem bronchi are anesthetized with 1% lidocaine. There was evidence of excessive dynamic airway compression at the level of the miguel. In a systematic manner bilateral bronchial tree was then examined. The bronchoscope was advanced into the left mainstem bronchus. The entrance of the left upper lobe bronchus was narrowed due to external compression. I was able to pass the bronchoscope beyond the narrowing to examine the left upper lobe however the mucosa was very friable and bled easily to touch. I could not examine the lingular segment. The left lower lobe bronchus could be accessed and examined and no endobronchial lesion was identified. The bronchoscope was then introduced into the right mainstem bronchus. The right upper lobe, right middle lobe and right lower lobe bronchi were examined up to the third subsegmental level and no abnormalities were identified. There was mucus throughout the airways. Endobronchial biopsies were obtained from the left upper lobe. Multiple samples were obtained Bronchoalveolar lavage was performed from the left upper lobe. 30 cc of fluid was administered, fluid return was 20 mL. The fluid was bloody. The endobronchial ultrasound was introduced through the LMA. Station 4 lymph node was normal. Lymphadenopathy in station 7 lymph node was identified. Left hilar mass was identified. Transbronchial fine-needle aspiration was performed from station 7 and left hilar lung mass. Samples: 1. The bronchoalveolar lavage was sent for cytology 2. The endobronchial biopsies are sent for histopathology. 4. The transbronchial needle aspiration of the aforementioned lymph node groups were sent for cytology and histopathology. Complications: There was no immediate complications. There was mild bleeding that was controlled at the end of the procedure.
--- NOTE | 2021-06-15 11:31 | PM.DCS ---
Discharge Providers Date of Admission: 06/12/21 13:56 Date of Discharge: June 15, 2021 Attending Provider at Admission: Efren Adorno MD Attending Provider at Discharge: Efren Adorno MD Primary Care Provider: Isabella Perez MD Diagnoses at Discharge Discharge Diagnosis (1) Mass of lung: Status: Acute (2) Atrial fibrillation: Status: Acute Qualifiers: Atrial fibrillation type: unspecified Qualified Code(s): I48.91 - Unspecified atrial fibrillation Reason for Visit Reason for Visit: fast HR Hospital Course Hospital Course Carolann is a 66-year-old white female who presented to the hospital short for work-up of a lung mass and was found to be in atrial fibrillation and rapid ventricular rate and deferred to the emergency department. She was admitted on June 12. She had failed Cardizem, esmolol and was eventually placed on amiodarone. She received several doses of digoxin, and had metoprolol started orally. Cardiology was consulted. With this treatment heart rate gradually improved to where she converted on June 14. She underwent bronchoscopy with biopsy for a lung mass on June 15. She tolerated this well and discharge was arranged on June 15. At that time she was in sinus rhythm. I discussed with her initiating Eliquis tonight. She will continue metoprolol at 25 mg twice daily. She will continue amiodarone 400 mg twice daily with the intention of this being dosed for 1 week, then following up with cardiology for a lower dose. I discussed this with her in detail as well as the risks of Eliquis. Pulmonary will follow up regarding her pathology samples from bronchoscopy and arrange appropriate follow-up. She will also see her primary care provider next week. She qualified for 2 L of oxygen which was arranged. Physical Exam Narrative: EXAM NARRATIVE: General exam no distress Neck is supple Cardiovascular regular rate and rhythm Lungs clear but with diminished breath sounds bilaterally Abdomen is soft, positive bowel sounds Extremities no cyanosis clubbing or edema Discharge Data Data Completed and Pending: Completed Studies During Hospitalization Category Date Time Status XR chest 1V bonnie ble [id number] Stat Exams 06/12/21 08:40 Completed CV. echo limited [id number] Stat Ultrasound 06/12/21 11:05 Completed Pending at discharge Category Date Time Status Cytology [PTH] Ro utine Pth 06/15/21 08:18 Received Cytology [PTH] Ro utine Pth 06/15/21 08:21 Received Cytology [PTH] Ro utine Pth 06/15/21 08:29 Received Cytology [PTH] Ro utine Pth 06/15/21 08:39 Received Cytology [PTH] Ro utine Pth 06/15/21 08:45 Received Cytology [PTH] Ro utine Pth 06/15/21 09:03 Received Pathology: Surgic al [PTH] Routine Pth 06/15/21 09:12 Received Labs from last 24 hours 06/15/21 06/14/21 06/14/21 06:13 20:30 18:01 POC Glucose 119 H 212 H 129 H Vitals: Last Vital Signs Temp 97.5 F L 06/15/21 09:19 Pulse 91 06/15/21 09:30 Resp 26 H 06/15/21 09:30 BP 138/63 06/15/21 09:30 Pulse Ox 88 L 06/15/21 11:05 Discharge Plan Discharge Patient Disposition: Home Condition: Stable Prescriptions: New Pacerone 200 mg Tablet 400 mg PO BID Qty: 60 RF: 0 metoprolol tartrate 25 mg tablet 25 mg PO Q12H Qty: 60 RF: 0 Eliquis 5 mg tablet 5 mg PO BID Qty: 60 RF: 0 Combivent Respimat 20-100 mcg/actuation mist 1 puff inhalation Q6H PRN (Reason: wheezing) Qty: 4 RF: 0 Continued aspirin [Adult Aspirin Regimen] 81 mg tablet,delayed release (DR/EC) 81 mg PO DAILY RF: 0 hydrochlorothiazide 25 mg tablet 25 mg PO DAILY Qty: 30 RF: 3 olmesartan 20 mg tablet 20 mg PO DAILY Qty: 30 RF: 4 nystatin 100,000 unit/mL suspension 5 ml PO QID Qty: 200 RF: 0 rosuvastatin 10 mg tablet 10 mg PO DAILY RF: 0 buspirone 5 mg tablet 5 mg PO DAILY RF: 0 sucralfate 1 gram tablet 1 g PO QID RF: 0 paroxetine HCl 20 mg tablet 20 mg PO DAILY RF: 0 metformin 500 mg tablet extended release 24 hr See Rx Instructions .ROUTE .COMPLEX RF: 0 Dexilant 60 mg capsule,biphase delayed releas 60 mg PO DAILY RF: 0 Victoza 3-Etienne 0.6 mg/0.1 mL (18 mg/3 mL) pen injector 1.8 mg SUBCUT DAILY RF: 0 Discontinued amoxicillin-pot clavulanate 875-125 mg tablet 1 tab PO BID RF: 0 Discharge Orders: Discharge Order (Routine); Ordered 06/15/21 Ordered By: Efren Adorno Other Ambulatory Orders: DME: Oxygen (Order) Location: None Selected Ordered By: Efren Adorno Referrals: Vimal Miller MD [Physician] - 7-10 days Isabella Perez MD [Primary Care Provider] - 4-7 days Discharge Diet: Diabetic Discharge Activity: Increase activity as tolerated Patient Instructions: Opioid Safety Activity Restrictions/Additional Instructions: Take all medicine as prescribed Home oxygen evaluation prior to discharge. Keep all follow-ups, including follow-up of pathology with pulmonary per their instruction. Discharge Attestations Time Spent in Discharge Care*: greater than 30 min Quality Metrics Clinical Quality Measures During this hospital stay, did patient experience: None Coding Level of Care Code Acute [facility] DC note Diagnoses Mass of lung R91.8 Atrial fibrillation I48.91 Atrial fibrillation type: unspecified
--- NOTE | 2021-06-15 12:20 | PC.NURSE ---
back from gi lab pending discharge home today .. Dr Adorno talked with her and am meds given home o2 eval pending discharge
--- NOTE | 2021-06-15 13:33 | ANE.PACU2 ---
Inpatient post-anesthesia follow up: Airway intact: Yes Vital signs: Temperature 97.5 F Pulse Rate [Apical ] 158 Pulse Rate 116 Respiratory Rate 18 Blood Pressure [Ri ght Arm] 114/78 Blood Pressure 140/69 Pulse Oximetry [Qu alifying 93 Sp02 on Oxygen wit h Exercise] Pulse Oximetry [Ro om Air at 88 Rest] Pulse Oximetry 94 Oxygen Delivery Me thod [ Nasal Cannula Current Rate & Del oscar] Oxygen Delivery Me thod Nasal Cannula Oxygen Flow Rate [ Current Rate 4 & Delivery] Oxygen Flow Rate 2 Fraction of Inspir ed Oxygen Hydration adequate: Yes Nausea and vomiting: No Pain level: 2 Mental status: Baseline
--- NOTE | 2021-06-15 14:18 | PC.NURSE ---
pt requesting to leave now still pending 02 delivery at this time
--- NOTE | 2021-06-15 16:39 | PC.RESP ---
PULMONARY REHAB INFORMATION SENT TO PATIENT.
--- NOTE | 2021-06-18 10:10 | PC.SOCIAL ---
discharge follow up call made, spoke with patient. patient picked up medications from the pharmacy, she wasn't able to get the inhaler due to cost being $400, her home health nurse is working to get it changed. patient reports her heart rate has been in the 120's-140's. she has a follow up appointment with her pcp tomorrow and will address with Dr. Perez. She doesn't feel she needs to come to the ED. Patient is using O2 at 2L.
== END 2021-06-15 14:00 | disposition home health service (06) | DRG 264 ==
LOC: ER 09:16 → ICU 12:03
PROVIDERS: Family Medicine; Internal Medicine Critical Care Medicine; Admitting Provider Internal Medicine; Emergency Provider Family Medicine; PCP Family Medicine; Visit Provider Internal Medicine
PROC: 0BJ08ZZ Inspection of Tracheobronchial Tree, Via Natural or Artificial Opening Endoscopic (ICD-10-PCS; CPT 31622; principal; 2021-06-15 07:00)
PROC: BB4BZZZ Ultrasonography of Pleura (ICD-10-PCS; 2021-06-15 07:00)
DX: I48.91 Unspecified atrial fibrillation (principal); J90 Pleural effusion, not elsewhere classified; R91.8 Other nonspecific abnormal finding of lung field; R59.0 Localized enlarged lymph nodes; J38.2 Nodules of vocal cords; F41.9 Anxiety disorder, unspecified; K21.9 Gastro-esophageal reflux disease without esophagitis; E78.2 Mixed hyperlipidemia; E11.9 Type 2 diabetes mellitus without complications; I10 Essential (primary) hypertension; K59.00 Constipation, unspecified; Z79.84 Long term (current) use of oral hypoglycemic drugs; Z79.82 Long term (current) use of aspirin; Z87.891 Personal history of nicotine dependence
CPT/HCPCS: 31625; 31652; 36415; 36416; 71045; 80053; 80500; 82962; 83735; 84484; 85025; 85610; 85730; 88112; 88305; 93005; 93308; 93312; 96365; 96372; 96375; 99291; J0282; J1100; J1160; J1644; J1650; J1815; J2405; J2704; J3010; J3475; J3490; J7030; J7040; J7060

== ENCOUNTER 2021-06-19 12:28 | Inpatient (IN) | payer BC, SELFPAY ==
[2021-06-19] VITALS (62 sets, daily range): BP systolic 90–149; BP diastolic 56–117; PULSE 86–145; RESP 16–26; TEMP 36.8–37.2; O2SAT 93–99; BMI 39.1
--- NOTE | 2021-06-19 12:37 | W.ED.CHESTPA ---
HPI - Chest Pain General: Chief Complaint: Chest Pain Stated Complaint: SOB/ WEAK/ AFIB WITH RVR Time Seen by Provider: 06/19/21 12:37 History of Present Illness: HPI narrative: Ms Murguia is a 66 yo lady with significant past history of recent diagnosis and hospitalization for new afib who presents via EMS for moderate to severe exertional shortness of breath that has been going on for a few days. Symptoms onset was gradual. Course has been worsening. No specific time of onset notable. Has had similar episodes in the past with her 1st episode. Has been compliant was meds. No other changes in health, exacerbating, relieving factors noted. Review of Systems General: Reports: 10 or more systems reviewed and unremarkable except in HPI and below PFSH ED PFSH: Medical History Anxiety Atrial fibrillation COPD (chronic obstructive pulmonary disease) Diabetes GERD (gastroesophageal reflux disease) Goiter Hyperlipidemia Hypertension Mass of lung Sinusitis Tenosynovitis of left foot Surgical History History of cholecystectomy History of hysterectomy Family History Other Cancer Social History Quit status (tobacco): has quit using tobacco Year quit tobacco: 2015 Former quit date comment: Hx of 1 PPD x 45 Years Second hand smoke exposure: No Smoking risk assessment/counseling performed?: No Alcohol intake: never Counseling given: No Counseling given: No Lives independently: Yes Household members: spouse Marital status: Current occupational status: retired History of recent travel: No Current gender identity: Female Physical Exam Narrative: EXAM NARRATIVE: GENERAL/CONSTITUTIONAL - somewhat ill-appearing. No acute distress. Eyes - PERRL, no conjunctival injection ENMT - Atraumatic external nose and ears. Moist mucous membranes NECK - supple. trachea midline CARDIOVASCULAR - afib with rvr. Peripheral pulses 2+ and equal RESPIRATORY -clear to auscultation bilaterally. No retractions or accessory muscle use. ABDOMEN/GI - Nontender. Nondistended. No tenderness to percussion or evidence of peritonitis MSK - Extremities without obvious deformity or tenderness to palpation SKIN - Warm, Dry NEURO - alert and appropriately oriented. strength and sensation intact. Moves all extremities equally. PSYCH - Appropriate mood and affect Course ED course: - Patient was seen and evaluated by me at bedside - Patient placed on cardiac monitors, IV access obtained - Initial evaluation notable for somewhat ill appearance. afib with RVR. okay bp and mental status - amiodarone bolus ordered - Labs notable for no acute abnormality to explain symptoms. electrolyte optimization ordered - Imaging notable for pulmonary vascular congestion - Discussed with cardiology and oral dose of metoprolol attempted with improved heart rate but not full control - Upon serial reexamination after treatment the patient was improved - Based on patient history, evaluation, labs, and imaging as interpreted the most likely cause of the patient's condition is afib with rvr, heart failure - The results of ED evaluation were discussed with the patient including plan for admission due to requirement for level of care not available if discharged to prevent significant worsening/deterioration. - Hospitalist contacted and agreed to admit the patient - Patient was admitted without further deterioration or significant events. Vital Signs: Vital signs: Vital Signs Temperature 98.3 F 06/21/21 06:15 Pulse Rate 80 06/21/21 09:26 Respiratory Rate 20 H 06/21/21 08:43 Blood Pressure 136/67 06/21/21 06:15 Pulse Oximetry 96 06/21/21 08:43 MDM - Chest Pain Medical Records: Attestation: I reviewed the patient's medical records. Lab Data: Attestation: I reviewed the patient's lab results. Labs: Lab Results 06/19/21 06/19/21 06/19/21 13:55 13:55 13:55 WBC 8.2 10^3/uL 10^3/ uL (4.0-10.0) RBC 3.49 10^6/uL L 10 ^6/uL (4.1-5.3) Hgb 10.3 g/dL L g/dL (11.5-15.3) Hct 35.0 % L % (37.0-47.0) MCV 100.3 fl H fl (81-99) MCH 29.5 pg pg (28.0-34.0) MCHC 29.4 g/dL L g/dL (30.0-36.0) RDW 12.8 % % (12.1-15.1) Plt Count 433 10^3/cmm H 10 ^3/cmm (130-400) MPV 9.7 fL fL (7.4-10.4) Neut % (Auto) 73.2 % % Lymph % (Auto) 22.0 % % [place] % (Auto) 3.9 % % Eos % (Auto) 0.2 % % Baso % (Auto) 0.5 % % Neut # (Auto) 6.00 10^3/uL 10^3 /uL (1.8-7.7) Lymph # (Auto) 1.8 10^3/uL 10^3/ uL (0.8-4.8) [place] # (Auto) 0.3 10^3/uL 10^3/ uL (0.2-0.9) Eos # (Auto) 0.0 10^3/uL 10^3/ uL (0.0-0.8) Baso # (Auto) 0.0 10^3/uL 10^3/ uL (0.0-0.1) Nucleated RBC % (a uto) 0 % % Nucleated RBCs # 0.0 /100WBC /100W BC Sodium 138 mmol/L mmol/L (136-145) Potassium 3.6 mmol/L mmol/L (3.5-5.1) Chloride 100 mmol/L mmol/L (98-107) Carbon Dioxide 24 mmol/L mmol/L (22-29) Anion Gap 17.6 (5-19) BUN 15 mg/dL mg/dL (8-23) Creatinine 0.5 mg/dL mg/dL (0.5-0.9) GFR Calculation 124.2 mL/min mL/m in (90-130) Glucose 92 mg/dL mg/dL (65-115) Calculated Osmolal ity 286 mOsm/kg mOsm/ kg (285-295) Lactate 2.1 mmol/L mmol/L (0.5-2.2) Calcium 8.9 mg/dL mg/dL (8.5-10.5) Magnesium 1.6 mg/dL L mg/dL (1.7-2.3) Iron TIBC % Saturation Unsat Iron Binding Total Bilirubin 0.2 mg/dL mg/dL (0.15-1.2) AST 18 U/L U/L (0-32) ALT 26 U/L U/L (0-33) Alkaline Phosphata se 142 IU/L H IU/L (35-105) Troponin T Baselin e Troponin T 120 Min [place] Troponin T NT-Pro-B Natriuret Pep 1955 pg/mL H pg/m L (0-125) Total Protein 6.4 g/dL L g/dL (6.6-8.7) Albumin 2.5 g/dL L g/dL (3.5-5.2) Globulin 3.9 g/dL g/dL (1.3-4.6) Procalcitonin TSH 0.19 uIU/mL L uIU /mL (0.27-4.20) Free T4 Urine Color Urine Appearance Urine pH Ur Specific Gravit y Urine Protein Urine Glucose (UA) Urine Ketones Urine Blood Urine Nitrate Urine Bilirubin Urine Urobilinogen Ur Leukocyte Teresa ase Urine RBC Urine WBC Ur Squamous Epith Cells Amorphous Sediment Urine Bacteria Urine Mucus 06/19/21 06/19/21 06/19/21 13:55 13:55 13:55 WBC RBC Hgb Hct MCV MCH MCHC RDW Plt Count MPV Neut % (Auto) Lymph % (Auto) [place] % (Auto) Eos % (Auto) Baso % (Auto) Neut # (Auto) Lymph # (Auto) [place] # (Auto) Eos # (Auto) Baso # (Auto) Nucleated RBC % (a uto) Nucleated RBCs # Sodium Potassium Chloride Carbon Dioxide Anion Gap BUN Creatinine GFR Calculation Glucose Calculated Osmolal ity Lactate Calcium Magnesium Iron 18 ug/dL L ug/dL (37-145) TIBC 198 mcg/dl mcg/dl % Saturation 9.0 % L % (20-50) Unsat Iron Binding 180 ug/dL ug/dL (112-347) Total Bilirubin AST ALT Alkaline Phosphata se Troponin T Baselin e 56 ng/L H ng/L (0-10) Troponin T 120 Min [place] Troponin T NT-Pro-B Natriuret Pep Total Protein Albumin Globulin Procalcitonin 0.07 ng/mL ng/mL (0-0.5) TSH Free T4 1.70 ng/dL ng/dL (0.82-1.77) Urine Color Urine Appearance Urine pH Ur Specific Gravit y Urine Protein Urine Glucose (UA) Urine Ketones Urine Blood Urine Nitrate Urine Bilirubin Urine Urobilinogen Ur Leukocyte Teresa ase Urine RBC Urine WBC Ur Squamous Epith Cells Amorphous Sediment Urine Bacteria Urine Mucus 06/19/21 06/19/21 14:26 16:50 WBC RBC Hgb Hct MCV MCH MCHC RDW Plt Count MPV Neut % (Auto) Lymph % (Auto) [place] % (Auto) Eos % (Auto) Baso % (Auto) Neut # (Auto) Lymph # (Auto) [place] # (Auto) Eos # (Auto) Baso # (Auto) Nucleated RBC % (a uto) Nucleated RBCs # Sodium Potassium Chloride Carbon Dioxide Anion Gap BUN Creatinine GFR Calculation Glucose Calculated Osmolal ity Lactate Calcium Magnesium Iron TIBC % Saturation Unsat Iron Binding Total Bilirubin AST ALT Alkaline Phosphata se Troponin T Baselin e Troponin T 120 Min [place] 67.37 ng/L H ng/L (0-10) Delta Troponin T 11.37 ABS# H* ABS # (0-10) NT-Pro-B Natriuret Pep Total Protein Albumin Globulin Procalcitonin TSH Free T4 Urine Color Dark yellow (Yellow) Urine Appearance Hazy A (CLEAR) Urine pH 5 (5-7) Ur Specific Gravit y 1.020 (1.005-1.030) Urine Protein Neg (Negative) Urine Glucose (UA) Norm (Normal) Urine Ketones Negative (Negative) Urine Blood 2+ H (Negative) Urine Nitrate Negative (Negative) Urine Bilirubin 1+ H (Negative) Urine Urobilinogen 1 mg/dL H mg/dL (Negative) Ur Leukocyte Teresa ase Trace H (Negative) Urine RBC 0-4 /hpf H /hpf (0-2) Urine WBC 5-10 /hpf H /hpf (0-5) Ur Squamous Epith Cells 25-40 /hpf H /hpf (0-5) Amorphous Sediment Not Reportable Urine Bacteria 2+ /hpf H /hpf (NONE) Urine Mucus 2+ /hpf /hpf EKG Data^: EKG 1: Attestation: I personally reviewed and interpreted this EKG as follows: EKG interpretation date: 06/19/21 EKG interpretation time: 13:03 Interpretation: Twelve-lead EKG shows a irregular rhythm at a rate of 135. NV interval not present. QRS duration 82. QTc 380. Normal [place]. Nonspecific ST significance. Interpretation: Atrial fibrillation rhythm. Rapid ventricular response. EKG 2: Attestation: I personally reviewed and interpreted this EKG as follows: EKG interpretation date: 06/19/21 EKG interpretation time: 16:39 Interpretation: Twelve-lead EKG shows a irregular rhythm at a rate of 110. NV interval not present. QRS duration 83. QTc 417. Normal [place]. Nonspecific ST segment abnormalities. Interpretation: Atrial fibrillation rhythm. Rapid ventricular response. Discharge Plan Discharge Patient Disposition: Admitted As Inpatient Admit Provider: Vimal Lockwood Coding Level of Care Code ED Cargo Agent for Mikal Davidson
--- NOTE | 2021-06-19 12:46 | XRR_ITS ---
PROCEDURE INFORMATION: Exam: XR Chest Exam date and time: 06/19/2021 12:46 PM Age: 66 years old Clinical indication: Shortness of breath; Patient HX: SOB, weak, afib; Additional info: Chest pain TECHNIQUE: Imaging protocol: XR of the chest. Views: 1 view. COMPARISON: CR XR chest 1V portable [id number] 06/12/2021 8:45 AM FINDINGS: Lungs: There is pulmonary vascular prominence consistent with heart failure. There is patchy atelectasis in the left base. Pleural spaces: Unremarkable. No pleural effusion. No pneumothorax. Heart/Mediastinum: The cardiac silhouette is enlarged but unchanged. Bones/joints: Unremarkable. XR/XR chest 1V portable [id number] IMPRESSION: Cardiomegaly with vascular congestion consistent with heart failure.
--- NOTE | 2021-06-19 12:46 | ECG_ITS ---
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 Measurements Intervals [place] Rate: 135 P: [place]: QRS: 38 QRSD: 82 T: 249 QT: 301 QTc: 452 Interpretive Statements ATRIAL FIBRILLATION WITH RAPID VENTRICULAR RESPONSE ST DEVIATION AND MODERATE T-WAVE ABNORMALITY, CONSIDER ANTEROLATERAL ISCHEMIA [-0.1+ mV T-WAVE IN V3-V6] ST DEVIATION AND MODERATE T-WAVE ABNORMALITY, CONSIDER INFERIOR ISCHEMIA [-0.1+ mV T-WAVE IN II/aVF] Compared to ECG 06/12/2021 11:20:44 Possible ischemia now present T-wave abnormality still present Electronically Signed On 06-20-2021 23:42:36 CDT by Shari Starks M.D. [id number] f
--- NOTE | 2021-06-19 12:46 | ECG_ITS ---
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 Measurements Intervals [place] Rate: 135 P: [place]: QRS: 38 QRSD: 82 T: 249 QT: 301 QTc: 452 Interpretive Statements ATRIAL FIBRILLATION WITH RAPID VENTRICULAR RESPONSE ST DEVIATION AND MODERATE T-WAVE ABNORMALITY, CONSIDER ANTEROLATERAL ISCHEMIA [-0.1+ mV T-WAVE IN V3-V6] ST DEVIATION AND MODERATE T-WAVE ABNORMALITY, CONSIDER INFERIOR ISCHEMIA [-0.1+ mV T-WAVE IN II/aVF] Compared to ECG 06/12/2021 11:20:44 Possible ischemia now present T-wave abnormality still present Electronically Signed On 06-20-2021 23:42:44 CDT by Shari Starks M.D. [id number] f
[2021-06-19] MEDS: sodium chloride 0.9% 500 ML IV (13:48)
[2021-06-19 14:08] LABS: Basophils % 0.5 %; Eosinophils % 0.2 %; Hemoglobin 10.3 g/dL (11.5-15.3); Lymphocytes # 1.8 10^3/uL (0.8-4.8); Mean Corpuscular HGB Conc 29.4 g/dL (30.0-36.0); Mean Corpuscular Hemoglobin 29.5 pg (28.0-34.0); Mean Corpuscular Volume 100.3 fl (81-99); Mean Platelet Volume 9.7 fL (7.4-10.4); Monocytes # 0.3 10^3/uL (0.2-0.9); Monocytes % 3.9 %; Neutrophils % 73.2 %; Nucleated Red Blood Cells % 0 %; Platelet Count 433 10^3/cmm (130-400); Red Blood Count 3.49 10^6/uL (4.1-5.3); Red Cell Distribution Width 12.8 % (12.1-15.1); White Blood Count 8.2 10^3/uL (4.0-10.0)
[2021-06-19 14:23] LABS: Lactate (Lactic Acid level) 2.1 mmol/L (0.5-2.2)
[2021-06-19 14:35] LABS: Alanine Aminotransferase 26 U/L (0-33); Albumin Level 2.5 g/dL (3.5-5.2); Alkaline Phosphatase 142 IU/L (35-105); Anion Gap 17.6 (5-19); Aspartate Amino Transferase 18 U/L (0-32); Blood Urea Nitrogen 15 mg/dL (8-23); Calcium 8.9 mg/dL (8.5-10.5); Carbon Dioxide 24 mmol/L (22-29); Chloride 100 mmol/L (98-107); Globulin 3.9 g/dL (1.3-4.6); Glomerular Filtration Rate 124.2 mL/min (90-130); Glucose 92 mg/dL (65-115); Magnesium 1.6 mg/dL (1.7-2.3); NT Pro B Type Natriuretic Pept 1955 pg/mL (0-125); Osmolality Calculated 286 mOsm/kg (285-295); Potassium 3.6 mmol/L (3.5-5.1); Sodium 138 mmol/L (136-145); Thyroid Stimulating Hormone 0.19 uIU/mL (0.27-4.20); Total Bilirubin 0.2 mg/dL (0.15-1.2); Total Protein 6.4 g/dL (6.6-8.7)
[2021-06-19 14:51] LABS: Glucose Urine UA Norm (Normal); Ketones Urine Negative (Negative); Protein Urine Neg (Negative); Urine Appearance Hazy (CLEAR); Urine Color Dark Yellow (Yellow); pH Urine 5 (5-7)
[2021-06-19 14:52] LABS: Add Urine Microscopic? YES; Bacteria Urine 2+ /hpf; Bilirubin Urine 1+ (Negative); Blood Urine 2+ (Negative); Leukocyte Esterase Urine Trace (Negative); Mucus Urine 2+ /hpf; Nitrate Urine Negative (Negative); RBC Urine 0-4 /hpf (0-2); Urobilinogen Urine 1 mg/dL (Negative)
[2021-06-19 14:53] LABS: Add Urine Culture? No; Squamous Epithelial Cell Urine 25-40 /hpf (0-5)
[2021-06-19 14:57] LABS: Troponin(5th) Baseline 56 ng/L (0-10)
[2021-06-19] MEDS: magnesium sulfate premix 2 GM/50 ML PIGGYBACK IV (15:05)
[2021-06-19] MEDS: potassium chloride ER 20 mEq Tablet 40 MEQ PO (15:06)
[2021-06-19] MEDS: metoprolol tartrate 50 mg Tablet PO (15:31)
[2021-06-19] MEDS: acetaminophen 500 mg Tablet 1000 MG PO (15:31)
[2021-06-19 17:26] LABS: Troponin 5 2HR 67.37 ng/L (0-10)
[2021-06-19 17:28] LABS: Troponin 5 2HR Delta 11.37 ABS# (0-10)
[2021-06-19] MEDS: aspirin 81 mg Chew Tablet 324 MG PO (17:40)
--- NOTE | 2021-06-19 18:05 | P.HP_ITS ---
Providers/Chief Complaint Primary Care Provider: Isabella Perez MD Chief Complaint: SOB/ WEAK/ AFIB WITH RVR History of Present Illness Carolann Murguia is a 66 year old female with PMH of HTN, DM, HLD, lung mass probable cancer under evaluation and post bronchoscopy and biopsy on 06/15, previously admitted to hospital last week for difficult to control afib. She had failed Cardizem, esmolol and was eventually placed on amiodarone. She received several doses of digoxin, and had metoprolol started orally. Cardiology was consulted. With this treatment heart rate gradually improved to where she converted on June 14 and was discharged on 06/15. She presented to ER today with complaint of feeling dizzy, out of breath and palpitations on and off since the day of discharge. She states her medications are twice daily and does not think it is doing enough and there are multiple times during the day when her heart rate is high. Denies any chest pain, fall, diarrhea, dysuria. HR of 150s for she received 150 mg IV bolus and metoprolol of HR in 90s going upto 110s for which hospitalist service was consulted for for further care. Blood work should Hb of 10.3, na of 136, creat of 0.5, Alp of 152, baseline trop of 52 with delta of 11, BNP of 1955, TSH of 0.19, free T4 of 1.7 Review of Systems General: Reports: 10 or more systems reviewed and unremarkable except in HPI and below Const: Denies: fever(s), chills, body aches, change in appetite, change in weight, malaise, night sweats, diaphoresis, change in sleep pattern, daytime sleepiness or snoring Eyes: Denies: change in vision, blurry vision, photophobia, eye discomfort or eye discharge ENMT: Denies: throat pain, enlarged tonsils, hoarseness, mouth pain, oral sores, dry mouth, tinnitus, nasal congestion or post nasal drip Card: Denies: chest pain, palpitations, irregular heart rhythm, edema, swelling of feet/ankles, lightheadedness, syncope, pre-syncope, dyspnea on exertion, orthopnea, leg pain with exertion or acrocyanosis Resp: Denies: dyspnea, productive cough, non-productive cough, wheezing, stridor, pain on inspiration, change in phlegm color, hemoptysis or chest conges tion GI: Denies: abdominal pain, nausea, vomiting, hematemesis, coffee ground emesis, dysphagia, heartburn, diarrhea, constipation, bloating, GI cramping, change in bowel habits, pain on defecation, hematochezia or melena : Denies: flank pain, dysuria, urinary frequency, urinary urgency, urinary hesitancy, nocturia or hematuria Musc: Denies: neck pain, back pain, extremity pain, joint pain, joint swelling, joint redness, joint stiffness or limited range of motion Neuro: Denies: headache(s), numbness in extremities, weakness in extremities, sensory changes, lack of coordination, difficulty walking, frequent falls, dizziness, vertigo, confusion, Slurred speech present, difficulty communicating thoughts or seizure-like activity Psych: Denies: anxiety, depression, mood swings, panic attacks, hopelessness or irritability Endo: Denies: polyuria, polydipsia, tired all the time, cold intolerance, excessive sweating, flushing or heat intolerance [place]/Lymph: Denies: easy bruising or easy bleeding All/Imm: Denies: tongue swelling, facial swelling or acute wheezing Medications/Allergies Home Medications Medication Instructions Recorded Confirmed Last Taken Type hydrochlorothiazide 25 mg tablet 25 mg PO DAILY #30 tab 05/31/21 06/19/21 06/19/21 Rx olmesartan 20 mg tablet 20 mg PO DAILY #30 tab 05/31/21 06/19/21 06/19/21 Rx Dexilant 60 mg PO DAILY 06/12/21 06/19/21 06/19/21 History Victoza 3-Etienne 1.8 mg SUBCUT DAILY 06/12/21 06/19/21 06/19/21 History buspirone 5 mg PO BID 06/12/21 06/19/21 06/19/21 History metformin 1,000 mg PO BID 06/12/21 06/19/21 06/19/21 History paroxetine HCl 20 mg PO DAILY 06/12/21 06/19/21 06/19/21 History rosuvastatin 10 mg PO DAILY 06/12/21 06/19/21 06/18/21 History sucralfate 1 g PO QID 06/12/21 06/19/21 06/19/21 History nystatin 100,000 unit/mL oral 5 ml PO QID #200 ml 06/14/21 06/19/21 06/19/21 Rx suspension amiodarone [Pacerone] 400 mg PO BID #60 tab 06/15/21 06/19/21 06/19/21 Rx apixaban [Eliquis] 5 mg PO BID #60 tab 06/15/21 06/19/21 06/19/21 Rx metoprolol tartrate 25 mg PO Q12H #60 tab 06/15/21 06/19/21 06/19/21 Rx tizanidine 4 mg PO BEDTIME PRN 06/19/21 06/19/21 Unknown History Allergies Allergy/AdvReac Type Severity Reaction Status Date / Time cefdinir AdvReac stomach Verified 06/19/21 12:36 problems PFSH Acute PFSH: Medical History Anxiety Atrial fibrillation COPD (chronic obstructive pulmonary disease) Diabetes GERD (gastroesophageal reflux disease) Goiter Hyperlipidemia Hypertension Mass of lung Sinusitis Tenosynovitis of left foot Surgical History History of cholecystectomy History of hysterectomy Family History Other Cancer Social History Quit status (tobacco): has quit using tobacco Year quit tobacco: 2015 Former quit date comment: Hx of 1 PPD x 45 Years Second hand smoke exposure: No Smoking risk assessment/counseling performed?: No Alcohol intake: never Counseling given: No Counseling given: No Lives independently: Yes Household members: spouse Marital status: Current occupational status: retired History of recent travel: No Current gender identity: Female Vitals/I&O/Wt Last Vital Signs Temp 98.9 F 06/19/21 12:30 Pulse 93 06/19/21 17:41 Resp 19 H 06/19/21 17:41 BP 96/63 06/19/21 17:41 Pulse Ox 97 06/19/21 17:41 Weight last 48 hrs Weight 113.398 kg Physical Exam Narrative: EXAM NARRATIVE: General: No acute distress, AO x3, anxious HEENT: PERRLA, pupils bilaterally equal and reactive Chest: Normal vesicular breath sounds, bilateral fine crackles in the lower zones, good equal air entry bilaterally CVS: S1-S2 irregularly irregular, no murmurs, no tachycardia, no gallops, no rubs Abdomen: Soft, nontender, no organomegaly, bowel sounds present Neuro: No focal deficits, no facial deformity, AO x3, power 5/5 in all limbs Data : 06/20/21 04:13 06/20/21 04:13 Other Labs: Laboratory Results WBC 8.2 10^3/uL (4.0-10.0) 06/19/21 13:55 RBC 3.49 10^6/uL (4.1-5.3) L 06/19/21 13:55 Hgb 10.3 g/dL (11.5-15.3) L 06/19/21 13:55 Hct 35.0 % (37.0-47.0) L 06/19/21 13:55 MCV 100.3 fl (81-99) H 06/19/21 13:55 MCH 29.5 pg (28.0-34.0) 06/19/21 13:55 MCHC 29.4 g/dL (30.0-36.0) L 06/19/21 13:55 RDW 12.8 % (12.1-15.1) 06/19/21 13:55 Plt Count 433 10^3/cmm (130-400) H 06/19/21 13:55 MPV 9.7 fL (7.4-10.4) 06/19/21 13:55 Neut % (Auto) 73.2 % 06/19/21 13:55 Lymph % (Auto) 22.0 % 06/19/21 13:55 [place] % (Auto) 3.9 % 06/19/21 13:55 Eos % (Auto) 0.2 % 06/19/21 13:55 Baso % (Auto) 0.5 % 06/19/21 13:55 Neut # (Auto) 6.00 10^3/uL (1.8-7.7) 06/19/21 13:55 Lymph # (Auto) 1.8 10^3/uL (0.8-4.8) 06/19/21 13:55 [place] # (Auto) 0.3 10^3/uL (0.2-0.9) 06/19/21 13:55 Eos # (Auto) 0.0 10^3/uL (0.0-0.8) 06/19/21 13:55 Baso # (Auto) 0.0 10^3/uL (0.0-0.1) 06/19/21 13:55 Nucleated RBC % (auto) 0 % 06/19/21 13:55 Nucleated RBCs # 0.0 /100WBC 06/19/21 13:55 Sodium 138 mmol/L (136-145) 06/19/21 13:55 Potassium 3.6 mmol/L (3.5-5.1) 06/19/21 13:55 Chloride 100 mmol/L (98-107) 06/19/21 13:55 Carbon Dioxide 24 mmol/L (22-29) 06/19/21 13:55 Anion Gap 17.6 (5-19) 06/19/21 13:55 BUN 15 mg/dL (8-23) 06/19/21 13:55 Creatinine 0.5 mg/dL (0.5-0.9) 06/19/21 13:55 GFR Calculation 124.2 mL/min (90-130) 06/19/21 13:55 Glucose 92 mg/dL (65-115) 06/19/21 13:55 Calculated Osmolality 286 mOsm/kg (285-295) 06/19/21 13:55 Lactate 2.1 mmol/L (0.5-2.2) 06/19/21 13:55 Calcium 8.9 mg/dL (8.5-10.5) 06/19/21 13:55 Magnesium 1.6 mg/dL (1.7-2.3) L 06/19/21 13:55 Iron 18 ug/dL (37-145) L 06/19/21 13:55 Total Bilirubin 0.2 mg/dL (0.15-1.2) 06/19/21 13:55 AST 18 U/L (0-32) 06/19/21 13:55 ALT 26 U/L (0-33) 06/19/21 13:55 Alkaline Phosphatase 142 IU/L (35-105) H 06/19/21 13:55 Troponin T Baseline 56 ng/L (0-10) H 06/19/21 13:55 Troponin T 120 [place] 67.37 ng/L (0-10) H 06/19/21 16:50 Delta Troponin T 11.37 ABS# (0-10) H* 06/19/21 16:50 NT-Pro-B Natriuret Pep 1955 pg/mL (0-125) H 06/19/21 13:55 Total Protein 6.4 g/dL (6.6-8.7) L 06/19/21 13:55 Albumin 2.5 g/dL (3.5-5.2) L 06/19/21 13:55 Globulin 3.9 g/dL (1.3-4.6) 06/19/21 13:55 Procalcitonin 0.07 ng/mL (0-0.5) 06/19/21 13:55 TSH 0.19 uIU/mL (0.27-4.20) L 06/19/21 13:55 Free T4 1.70 ng/dL (0.82-1.77) 06/19/21 13:55 Urine Color Dark yellow (Yellow) 06/19/21 14:26 Urine Appearance Hazy (CLEAR) A 06/19/21 14:26 Urine pH 5 (5-7) 06/19/21 14:26 Ur Specific [place] 1.020 (1.005-1.030) 06/19/21 14:26 Urine Protein Neg (Negative) 06/19/21 14:26 Urine Glucose (UA) Norm (Normal) 06/19/21 14:26 Urine Ketones Negative (Negative) 06/19/21 14:26 Urine Blood 2+ (Negative) H 06/19/21 14:26 Urine Nitrate Negative (Negative) 06/19/21 14:26 Urine Bilirubin 1+ (Negative) H 06/19/21 14:26 Urine Urobilinogen 1 mg/dL (Negative) H 06/19/21 14:26 Ur Leukocyte Esterase Trace (Negative) H 06/19/21 14:26 Urine RBC 0-4 /hpf (0-2) H 06/19/21 14:26 Urine WBC 5-10 /hpf (0-5) H 06/19/21 14:26 Ur Squamous Epith Cells 25-40 /hpf (0-5) H 06/19/21 14:26 Amorphous Sediment Not Reportable 06/19/21 14:26 Urine Bacteria 2+ /hpf (NONE) H 06/19/21 14:26 Urine Mucus 2+ /hpf 06/19/21 14:26 Impressions Chest X-Ray 06/19/21 12:46 IMPRESSION: Cardiomegaly with vascular congestion consistent with heart failure. A&P Assessment and plan (1) Atrial fibrillation: Status: Acute Qualifiers: Atrial fibrillation type: unspecified Qualified Code(s): I48.91 - Unspecified atrial fibrillation (2) Mass of lung: Status: Acute (3) Diabetes: Status: Acute (4) Hypertension: Status: Acute Qualifiers: Hypertension type: essential hypertension Qualified Code(s): I10 - Essential (primary) hypertension (5) Hyperlipidemia: Status: Acute Qualifiers: Hyperlipidemia type: mixed hyperlipidemia Qualified Code(s): E78.2 - Mixed hyperlipidemia (6) Diastolic heart failure: Status: Acute Additional A&P Information Afib: Difficult to control on previous admission. Failed cardizem, esmolol, digoxin. Start on amio drip. Already got metoprolol 50 mg in ER C/w oral amio 400 mg bid, Increase metoprolol 50 mg BID. Cardiology consulted from ER. C/w eliquis 5 mg BID. Telemetry. ECHO done recently last week shows EFof 55%, Mod dilated RA/RV Congestive heart failure: Diastolic. Elevated proBNP. IV Lasix 40 mg twice daily. Strict input output charting, daily weights. Type 2 DM: Check A1c. Stop OHAs. ISS HTN: Goal BP less than 140/90 mmhg. C/w Amio and metoprolol. Monitor BP and if elevated will home dose of ACEi. C/w other chronic oral meds. FC Carb cardiac diet Protonix for PUD Eliquis will help DVT PPx Attestations Medical Necessity Statement*: Admission for more than 2 MN for management of afib Time Spent in Patient Care: Greater than 35 minutes (>than 50% of time spent in counselling and/or direct pt care on unit) . 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
[2021-06-19] MEDS: apixaban 5 mg Tablet PO (18:16)
[2021-06-19] MEDS: FUROsemide 10 mg/mL SDV 4mL 40 MG IVP (18:16)
--- NOTE | 2021-06-19 18:18 | ECG_ITS ---
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 Measurements Intervals [place] Rate: 110 P: MD: QRS: 45 QRSD: 83 T: -65 QT: 352 QTc: 476 Interpretive Statements ATRIAL FIBRILLATION WITH RAPID VENTRICULAR RESPONSE NONSPECIFIC T-WAVE ABNORMALITY Compared to ECG 06/19/2021 13:01:26 Possible ischemia no longer present T-wave abnormality still present Electronically Signed On 06-20-2021 23:45:16 CDT by Shari Starks M.D. [email or web address] [employer] [facility]vtcommunity [facility].[employer]/store/[id number]
[2021-06-19 18:57] LABS: Procalcitonin 0.07 ng/mL (0-0.5)
[2021-06-19 19:24] LABS: Iron 18 ug/dL (37-145)
--- NOTE | 2021-06-19 20:00 | PM.CONSULT ---
Providers/Reason For Consult Consulting Physician/Specialty*: SHAAN Starks MD/cardiology Reason for Consult*: Patient with atrial fibrillation rapid ventricular rate. Atypical chest symptoms. Primary Care Provider: Isabella Perez MD History of Present Illness History of Present Illness Carolann Murguia is a 66 year old female with a history of recently diagnosed atrial fibrillation, now presenting with a chest discomfort/palpitation, dizziness and weakness. She was found to be in atrial fibrillation with rapid ventricular rate. Patient is already on beta-marie and amiodarone. Cardiology consult is requested for further evaluation recommendations. This patient was recently discharged from the hospital where she was admitted for atrial fibrillation with rapid ventricular rate. Apparently this patient was diagnosed with a lung mass recently and was scheduled for a biopsy as an outpatient last week. 3 operatively, she was found to be atrial fibrillation rapid ventricular rate. For that reason, she will admit to the hospital patient advised to take blood pressure in the morning, before breakfast, and in the evening, before going to bed - two times a day, and to bring the blood pressure diary to the office in two weeks. She was treated with AV dinesh blocking agents, IV amiodarone and IV digoxin. Finally her heart rate went back into the normal beat. She was discharged home in stable condition. Since the hospital discharge, she has been having some episodes of palpitation. Since last Friday, the palpitations are more or less constant with some waxing and waning. She was having chest discomfort/tightness associated shortness of breath and occasional dizziness. No syncopal episodes. No fever or chills. No similar cough. Patient was started on beta-marie, amiodarone and digoxin in the hospital. She has been compliant with this medications. Currently she is on amiodarone 4 mg p.o. twice daily along with metoprolol 25 mg p.o. twice daily. She also was placed on Eliquis. She apparently has a longstanding history of intermittent palpitations,? Possible atrial fibrillation. But she never been on amiodarone OR antiarrhythmic drugs or oral anticoagulants Review of Systems Narrative: CONSTITUTIONAL: No fever or chills. EYES: No blurring of vision or other visual disturbances lately. ENT: No hoarseness of voice, auditory disturbances or sore throat. CARDIOVASCULAR: As mentioned above. RESPIRATORY: Recently diagnosed lung tumor as mentioned above GASTROINTESTINAL: No hematemesis or melena. GENITOURINARY: No dysuria or hematuria. INTEGUMENTARY: No skin rashes or history of skin cancer. NEURO: No transient ischemic attacks or amaurosis. PSYCHIATRIC: No history of psychosis or major depression. HEMATOLOGIC: No bleeding disorders or significant anemia. ENDOCRINE: No history of polyuria or polydipsia. MUSCULOSKELETAL: No recent joint pain or swelling. ALLERGY/IMMUNOLOGY: As mentioned above. Meds/Allergies Home Medications and Allergies Home Medications Medication Instructions Recorded Confirmed Last Taken Type olmesartan 20 mg tablet 20 mg PO DAILY #30 tab 05/31/21 06/28/21 06/19/21 Rx Dexilant 60 mg PO DAILY 06/12/21 06/28/21 06/19/21 History Victoza 3-Etienne 1.8 mg SUBCUT DAILY 06/12/21 06/28/21 06/19/21 History metformin 1,000 mg PO BID 06/12/21 06/28/21 06/19/21 History paroxetine HCl 20 mg PO DAILY 06/12/21 06/28/21 06/19/21 History rosuvastatin 10 mg PO DAILY 06/12/21 06/28/21 06/18/21 History sucralfate 1 g PO QID 06/12/21 06/28/21 06/19/21 History nystatin 100,000 unit/mL oral 5 ml PO QID #200 ml 06/14/21 06/28/21 06/19/21 Rx suspension Eliquis 5 mg PO BID #60 tab 06/15/21 06/28/21 06/19/21 Rx tizanidine 4 mg PO BEDTIME PRN 06/19/21 06/28/21 Unknown History buspirone 10 mg PO TID 30 Days #90 tab 06/22/21 06/28/21 Unknown Rx ferrous gluconate 324 mg PO BIDWM 30 Days #60 tab 06/22/21 06/28/21 Unknown Rx potassium chloride 10 meq PO DAILY #14 cap 06/22/21 06/28/21 Unknown Rx tiotropium bromide [Spiriva with 1 cap INHALATION DAILY #30 inh 06/22/21 06/28/21 Unknown Rx HandiHaler] metoprolol tartrate 100 mg tablet 100 mg PO BID #60 tab 06/26/21 06/28/21 Unknown Rx WHEELCHAIR #1 ea 06/27/21 06/28/21 Unknown Rx furosemide 40 mg tablet 40 mg PO DAILY #30 tab 06/27/21 06/28/21 Unknown Rx trazodone 100 mg tablet 100 mg PO .qhs #30 tab 06/27/21 06/28/21 Unknown Rx amiodarone 200 mg tablet 400 mg PO TID tab 06/28/21 06/28/21 Unknown History diltiazem HCl 60 mg 60 mg PO BID #60 cap 06/28/21 06/28/21 Unknown Rx capsule,extended release 12 hr ondansetron HCl 8 mg tablet 8 mg PO Q8H PRN #20 tab 06/28/21 Unknown Rx Allergies Allergy/AdvReac Type Severity Reaction Status Date / Time cefdinir AdvReac stomach Verified 06/28/21 15:03 problems Current Medications Current Medications Generic Name Dose Route Start Last Admin Trade Name Freq PRN Reason Stop Dose Admin Apixaban 5 mg 06/19/21 18:00 06/19/21 18:16 Apixaban 5 Mg Tablet PO 5 mg BID CECY Administration Amiodarone HCl 900 mg/ 518 mls @ 0 mls/hr 06/19/21 18:00 06/19/21 18:39 Dextrose/ IV Miscellaneous IV 1 mg/min Supplies .Q0M CECY 34.53 mls/hr Administration Protocol Per Protocol PFSH Acute PFSH: Medical History Anxiety Atrial fibrillation COPD (chronic obstructive pulmonary disease) Diabetes GERD (gastroesophageal reflux disease) Goiter Hyperlipidemia Hypertension Mass of lung Sinusitis Tenosynovitis of left foot Surgical History History of cholecystectomy History of hysterectomy Family History Other Cancer Social History Quit status (tobacco): has quit using tobacco Year quit tobacco: 2015 Former quit date comment: Hx of 1 PPD x 45 Years Second hand smoke exposure: No Smoking risk assessment/counseling performed?: No Alcohol intake: never Counseling given: No Counseling given: No Lives independently: Yes Household members: spouse Marital status: Current occupational status: retired History of recent travel: No Current gender identity: Female Vitals/I&O/Wt Last Vital Signs Temp 98.9 F 06/19/21 12:30 Pulse 96 06/19/21 19:10 Resp 18 06/19/21 19:10 BP 103/69 06/19/21 19:10 Pulse Ox 96 06/19/21 19:10 Weight last 48 hrs Weight 250 lb Physical Exam Narrative: EXAM NARRATIVE: GENERAL: The patient is alert and oriented times three. Not in any acute distress. Moderately obese HEENT: No significant pallor, icterus or lymphadenopathy. The pupils are symmetrical. Oral cavity: There are no mucous membrane lesions. Funduscopic examination: The fundus is not visualized NECK: Trachea appears to be central. No masses noted. No JVD or thyromegaly appreciated. No carotid bruit. RESPIRATORY: Chest is symmetrical. No intercostals muscle retraction or any accessory muscle activation. There is no chest wall tenderness. Breath sounds are heard bilaterally. No rales or rhonchi heard. No evidence of any consolidation. BREASTS: Deferred. HEART: The PMI could not be palpated. No other palpable precordial events. S1 and S2 are normal. No S3 or S4 heard. No pericardial rub or any click heard. ABDOMEN: No vessel pulsations or distention. No tenderness. No organomegaly appreciated. No abdominal bruit. Bowel sounds are normally heard. : Deferred. RECTAL: Deferred. LYMPHATIC: No lymphadenopathy noted in the neck or groin. EXTREMITIES: Trace edema with no cyanosis. Peripheral pulses are palpable although low amplitude MUSCULOSKELETAL: No acute joint deformities or swelling. SKIN: There are no significant scars or skin rash noted. NEUROPSYCHIATRIC: The patient is alert and oriented x3. Appears to be in a good mood. The higher functions are grossly within normal limits. No tremors or rigidity noted. Data Imaging^: Echo: My impression: Echocardiogram on 06/12/2021 revealed 1-Normal left ventricular cavity size. Normal left ventricular systolic function. Left ventricular ejection fraction is estimated at 55 %. 2-Moderately increased right ventricular size. 3-Moderately increased right atrial size. 4-Moderately thickened mitral valve. No mitral valve stenosis. Mild mitral valve regurgitation. 5-There is no pericardial effusion. 6-There are no prior echocardiogram studies to compare. CXR: My impression: Early, mild. Features of vascular congestion. Hilar prominence. No significant pleural effusion. EKG^: EKG 1: My Interpretation: Atrial fibrillation rapid ventricular rate of 110 bpm. Diffuse nonspecific T wave changes. A&P Assessment and plan (1) Atrial fibrillation with tachycardic ventricular rate: Patient seems to have symptomatic atrial fibrillation with rapid ventricular rate. Hemodynamically she seems to be stable. The higher dose of metoprolol seems to bring down the heart rate. We may try to optimize this medication. I discussed with the patient the option of doing electrical cardioversion, if the heart rate is not good to the normal range or the symptom persists, even after controlling the rate. Patient is not came to have a cardioversion. At this time, she just want to be treated medically. For the time being, should she may be continued on the amiodarone 400 mg p.o. twice daily and metoprolol 50 mg p.o. twice daily. Will be closely monitored on telemetry. May continue on the Eliquis Status: Acute (2) Hypertension: Currently she is normotensive. May continue on the current medications. Qualifiers: Hypertension type: essential hypertension Qualified Code(s): I10 - Essential (primary) hypertension (3) Mass of lung: Patient had bronchoscopy biopsy last Friday. The results are pending. (4) Hyperlipidemia: May continue on the current medications. Qualifiers: Hyperlipidemia type: mixed hyperlipidemia Qualified Code(s): E78.2 - Mixed hyperlipidemia (5) Atypical chest pain: In view of the patient's multiple factors for coronary artery disease, possibility of underlying coronary ischemia causing this is a consideration. Patient may benefit from a myocardial perfusion imaging, to further evaluate her coronary status. This may be performed once the heart rate is under control. Status: Resolved (6) Diabetes: Need to be closely monitored. Qualifiers: Diabetes mellitus complication status: with hyperglycemia Diabetes mellitus watermelon inspector insulin use: without watermelon inspector use Diabetes mellitus type: type 2 Qualified Code(s): E11.65 - Type 2 diabetes mellitus with hyperglycemia Additional A&P Information After reviewing the above and also based on the patient's the clinical progress, further recommendations will be made. Thank you for the opportunity to eval this patient and make these recommendations Consult Attestations Medical Necessity Statement: Patient requires continued hospital stay for close monitoring and further management Coding Level of Care Code Acute Dispensing Operator for [facility] History Detailed Exam Detailed Medical Decision Making Moderate Complexity Diagnoses Atrial fibrillation with tachycardic ventricular rate I48.91 Hypertension I10 Hypertension type: essential hypertension Mass of lung R91.8 Hyperlipidemia E78.2 Hyperlipidemia type: mixed hyperlipidemia Atypical chest pain R07.89 Diabetes E11.65 Diabetes mellitus complication status: with hyperglycemia Diabetes mellitus residential insulin use: without residential use Diabetes mellitus type: type 2
[2021-06-19 20:22] LABS: Total Iron Binding Capacity 198 mcg/dl; Unsaturated Iron Binding 180 ug/dL (112-347)
[2021-06-19 20:31] LABS: Troponin 5 6HR 63.22 ng/L (0-10); Troponin 5 6HR Delta 7.22 ng/L (0-12)
--- NOTE | 2021-06-19 22:28 | PC.NURSE ---
Report called Rosalie BROWN
[2021-06-19] MEDS: sucralfate 1 gm Tablet PO (23:04)
--- NOTE | 2021-06-19 23:14 | PC.NURSE ---
Admit Note Patient admitted to [facility] from ED via wheelchair. Covering service notified. Patient presents with afib with RVE. Patient currently on Amiodarone drip as documented. Orders reviewed & will continue to monitor. Patient and/or technical account representative oriented to environment, equipment, and informed of the following as found in the admission booklet: patient rights & responsibilities, visitor policy, hand and respiratory hygiene practice. Other education includes: amiodarone and telemetry. Patient verbalized complete understanding. Dr Mcclelland in to see patient at this time performing assessment and discussing complications of afib.
[2021-06-20] VITALS (13 sets, daily range): BP systolic 104–127; BP diastolic 52–95; PULSE 69–127; RESP 17–36; TEMP 36.6–37.6; O2SAT 88–96
[2021-06-20] MEDS: acetaminophen 325 mg Tablet 650 MG PO ×2 (02:43→15:53)
[2021-06-20 04:54] LABS: Basophils % 0.3 %; Eosinophils # 0.1 10^3/uL (0.0-0.8); Eosinophils % 0.5 %; Hematocrit 32.6 % (37.0-47.0); Hemoglobin 9.8 g/dL (11.5-15.3); Lymphocytes # 1.6 10^3/uL (0.8-4.8); Mean Corpuscular HGB Conc 30.1 g/dL (30.0-36.0); Mean Corpuscular Hemoglobin 29.6 pg (28.0-34.0); Mean Corpuscular Volume 98.5 fl (81-99); Mean Platelet Volume 10.3 fL (7.4-10.4); Monocytes # 1.3 10^3/uL (0.2-0.9); Monocytes % 10.1 %; Neutrophils # 10.08 10^3/uL (1.8-7.7); Neutrophils % 76.4 %; Nucleated Red Blood Cells % 0 %; Platelet Count 383 10^3/cmm (130-400); Red Blood Count 3.31 10^6/uL (4.1-5.3); Red Cell Distribution Width 12.8 % (12.1-15.1); White Blood Count 13.2 10^3/uL (4.0-10.0)
[2021-06-20 05:08] LABS: Estmated Average Glucose 140; Hemoglobin A1C 6.5 % (4.0-6.0)
[2021-06-20 05:24] LABS: Alanine Aminotransferase 26 U/L (0-33); Albumin Level 2.7 g/dL (3.5-5.2); Alkaline Phosphatase 128 IU/L (35-105); Anion Gap 16.8 (5-19); Aspartate Amino Transferase 18 U/L (0-32); Blood Urea Nitrogen 23 mg/dL (8-23); Calcium 8.8 mg/dL (8.5-10.5); Carbon Dioxide 25 mmol/L (22-29); Chloride 98 mmol/L (98-107); Globulin 3.4 g/dL (1.3-4.6); Glomerular Filtration Rate 124.2 mL/min (90-130); Glucose 102 mg/dL (65-115); Magnesium 1.7 mg/dL (1.7-2.3); Osmolality Calculated 286 mOsm/kg (285-295); Phosphorus 3.9 mg/dL (2.5-4.5); Potassium 3.8 mmol/L (3.5-5.1); Sodium 136 mmol/L (136-145); Total Bilirubin 0.2 mg/dL (0.15-1.2); Total Protein 6.1 g/dL (6.6-8.7)
--- NOTE | 2021-06-20 06:14 | PC.NURSE ---
Shift Note Frequent safety and comfort rounds continue. Orders and/or nursing care completed as indicated. Patient monitored for response to intervention and treatment(s). Education provided includes amiodarone. Patient verbalized complete understanding. Patient continues with heart rate 100 to 110s. Patient up ad gurwinder. Denies pain or needs at this time. No distress observed. Will continue to monitor.
[2021-06-20 06:33] LABS: Glucose Point of Care 102 mg/dL (70-110)
--- NOTE | 2021-06-20 08:30 | PC.NURSE ---
Pt presents lying in bed resting and talking to staff. Pts resp even and non-labored no distress noted. Pt on Amiodarone drip at 10mg/hr. Pt had no c/o pain or discomfort at the present time. no needs voiced. Call light in reach. Will cont to monitor.
[2021-06-20] MEDS: ipratropium 0.5 mg/2.5 mL Neb INHALATION (08:45)
[2021-06-20] MEDS: levalbuterol 0.63 mg/3 mL Neb INHALATION (08:45)
[2021-06-20] MEDS: amiodarone 200 mg Tablet 400 MG PO ×3 (08:59→17:23)
[2021-06-20] MEDS: atorvastatin 40 mg Tablet PO (09:00)
[2021-06-20] MEDS: metoprolol tartrate 25 mg Tablet 50 MG PO (09:00)
[2021-06-20] MEDS: PARoxetine 20 mg Tablet PO (09:00)
[2021-06-20] MEDS: apixaban 5 mg Tablet PO ×2 (09:00→17:23)
[2021-06-20] MEDS: sucralfate 1 gm Tablet PO ×4 (09:00→20:14)
[2021-06-20] MEDS: pantoprazole DR 40 mg Tablet PO (09:00)
[2021-06-20] MEDS: BuSPIRONE 10 mg Tablet 5 MG PO (09:00)
--- NOTE | 2021-06-20 10:17 | P.PN_ITS ---
Subjective Subjective: Interval history: No acute events overnight. Patient has remained amiodarone drip running at 0.5 currently. Heart rate has been running between high 90s to 110s. Denies any nausea, vomiting, headache. States she is pretty anxious. Did discuss with Dr. Starks yesterday for possible cardioversion for now which patient has decided to continue with medical management for now. Denies any nausea vomiting, headache. No urine output documented since admission. Vitals/I&O/Wt Last Vital Signs Temp 98.6 F 06/20/21 07:52 Pulse 127 H 06/20/21 09:32 Resp 18 06/20/21 09:32 BP 109/73 06/20/21 07:52 Pulse Ox 95 06/20/21 09:32 06/19/21 06/20/21 06/20/21 22:59 06:59 14:59 Intake Total 50 / 550 425.576 / 975.576 Balance 50 / 550 425.576 / 975.576 Weight last 48 hrs Weight 113.852 kg Weight 113.398 kg Physical Exam Narrative: EXAM NARRATIVE: General: No acute distress, AO x3, anxious HEENT: PERRLA, pupils bilaterally equal and reactive Chest: Normal vesicular breath sounds, bilateral fine crackles in the lower zones, good equal air entry bilaterally CVS: S1-S2 irregularly irregular, no murmurs, no tachycardia, no gallops, no rubs Abdomen: Soft, nontender, no organomegaly, bowel sounds present Neuro: No focal deficits, no facial deformity, AO x3, power 5/5 in all limbs Data : 06/20/21 04:13 06/20/21 04:13 A&P Assessment and plan (1) Atrial fibrillation: Status: Acute Qualifiers: Atrial fibrillation type: unspecified Qualified Code(s): I48.91 - Unspecified atrial fibrillation (2) Diastolic heart failure: Status: Acute (3) Diabetes: Status: Acute Qualifiers: Diabetes mellitus type: type 2 Diabetes mellitus vermin exterminator insulin use: without prison use Diabetes mellitus complication status: with hyperglycemia Qualified Code(s): E11.65 - Type 2 diabetes mellitus with hyperglycemia (4) Hypertension: Status: Acute Qualifiers: Hypertension type: essential hypertension Qualified Code(s): I10 - Essential (primary) hypertension (5) Hyperlipidemia: Status: Acute Qualifiers: Hyperlipidemia type: mixed hyperlipidemia Qualified Code(s): E78.2 - Mixed hyperlipidemia (6) Mass of lung: Status: Acute Additional A&P Information Afib: Difficult to control on previous admission. Failed cardizem, esmolol, digoxin. Continue with amiodarone drip. Continue with oral amnio 400 mg twice daily. Increase metoprolol to 75 mg twice daily Appreciate cardiology recommendations. For now patient would want to hold off on electrocardioversion and think more regarding the same. C/w eliquis 5 mg BID. Telemetry. ECHO done recently last week shows EFof 55%, Mod dilated RA/RV Congestive heart failure: Diastolic. Elevated proBNP. Euvolemic for now. Received 40 mg IV Lasix once on admission. For now continue to monitor. Strict input output charting, daily weights. Type 2 DM: A1c 6.5. Stop OHAs. ISS HTN: Goal BP less than 140/90 mmhg. C/w Amio and metoprolol. Monitor BP and if elevated will home dose of ACEi. Anxiety: Increase BuSpar to 10 mg 3 times daily, continue with home dose of paroxetine. Possible malignancy: Post biopsy with Dr. Ricci. With follow-up with pulmonology as an outpatient on discharge. Start on Spiriva. Oxygen supplementation keeping saturation over 90%. Out of bed to chair. FC Carb cardiac diet Protonix for PUD Eliquis will help DVT PPx Attestations Medical Necessity Statement*: Requires further hospitalization for management of atrial fibrillation with rapid ventricular response, mild diastolic congestive heart failure. Time Spent in Patient Care: Greater than 35 minutes (>than 50% of time spent in counselling and/or direct pt care on unit) . Coding Level of Care Code Acute Shop Foreman for [facility] Fwd Diagnoses Atrial fibrillation I48.91 Atrial fibrillation type: unspecified Diastolic heart failure I50.30 Diabetes E11.65 Diabetes mellitus type: type 2 Diabetes mellitus vermin exterminator insulin use: without prison use Diabetes mellitus complication status: with hyperglycemia Hypertension I10 Hypertension type: essential hypertension Hyperlipidemia E78.2 Hyperlipidemia type: mixed hyperlipidemia Mass of lung R91.8
--- NOTE | 2021-06-20 10:50 | PC.NUTR ---
Nutrition noted: Kayla Norman RN, notified this RD that pt would like yogurt with her meals. Have added. Pt has not triggered for nutrition assessment at this time, but will assess at 5D LOS or as needed.
[2021-06-20 11:04] LABS: Glucose Point of Care 121 mg/dL (70-110)
[2021-06-20 11:44] LABS: Chol HDL Ratio 2.84 mg/dL (0.0-4.40); Cholesterol 91 mg/dL (0-200); HDL Cholesterol 32 mg/dL (60-100); LDL Cholesterol Calculated 41 mg/dL (50-129); Triglycerides 92 mg/dL (0-150); VLDL Cholestrol Calculation 18 mg/dL (0-30)
[2021-06-20] MEDS: ondansetron 2 mg/ML SDV 2 mL 4 MG IVP (13:02)
[2021-06-20] MEDS: BuSPIRONE 10 mg Tablet PO ×2 (14:47→20:14)
[2021-06-20 16:51] LABS: Glucose Point of Care 124 mg/dL (70-110)
[2021-06-20] MEDS: ferrous gluconate 324 mg Tablet PO (17:24)
--- NOTE | 2021-06-20 19:05 | PC.NURSE ---
Received report from KEVIN Shah. Patient up to chair. Amiodarone drip continues at 0.5mg/min. Instructed patient on upcoming metoprolol dosing. Patient verbalized complete understanding. Spouse at side. Patient denies pain or needs presently. No distress observed.
[2021-06-20 20:03] LABS: Glucose Point of Care 166 mg/dL (70-110)
[2021-06-20] MEDS: metoprolol tartrate 25 mg Tablet 75 MG PO (20:14)
--- NOTE | 2021-06-20 21:42 | PM.PN ---
Subjective Subjective: Interval history: Slowly settling down however still in A. fib with increased ventricle response. Patient is very nervous and would like her to stay in with her Vitals/I&O/Wt Last Vital Signs Temp 99.6 F 06/20/21 19:54 Pulse 82 06/20/21 20:41 Resp 21 H 06/20/21 19:54 BP 104/52 06/20/21 19:54 Pulse Ox 95 06/20/21 19:54 06/20/21 06/20/21 06/20/21 06:59 14:59 22:59 Intake Total 425.576 / 975.576 480 / 480 975.424 / 1455.424 Balance 425.576 / 975.576 480 / 480 975.424 / 1455.424 Weight last 48 hrs Weight 251 lb Weight 250 lb Physical Exam Narrative: EXAM NARRATIVE: GENERAL: Patient is alert, awake and oriented x3. NECK: No jugular vein distension. HEENT: No cyanosis. No icterus. No pallor. HEART: Irregularly irregular S1 and S2. LUNGS: Clear to auscultate bilaterally. ABDOMEN: Soft, nontender and nondistended. Positive bowel sounds. No guarding, rebound or tenderness. CENTRAL NERVOUS SYSTEM: Grossly nonfocal. EXTREMITIES: Lower extremities withoutedema bilaterally. Data : 06/20/21 04:13 06/20/21 04:13 A&P Assessment and plan (1) Atrial fibrillation with tachycardic ventricular rate: Discussed with our hospitalist colleague and agree with her decision regarding increasing metoprolol from 50 to 70 mg. If required may will give digoxin. Continue 400 mg twice a day amiodarone. Patient at this point is not willing to opt for cardioversion we will see how she performs over next 24 hours. Status: Acute (2) Hypertension: Well-controlled. Continue current regimen Status: Acute Qualifiers: Hypertension type: essential hypertension Qualified Code(s): I10 - Essential (primary) hypertension (3) Mass of lung: As per medicine Status: Acute (4) Hyperlipidemia: Continue current regimen of statin Status: Acute Qualifiers: Hyperlipidemia type: mixed hyperlipidemia Qualified Code(s): E78.2 - Mixed hyperlipidemia (5) Atypical chest pain: As suggested before discharge or as an outpatient will last for stress test. Currently denies any more chest pain Status: Acute (6) Diabetes: Need to be closely monitored. Status: Acute Qualifiers: Diabetes mellitus type: type 2 Diabetes mellitus [facility] insulin use: without exterminator helper use Diabetes mellitus complication status: with hyperglycemia Qualified Code(s): E11.65 - Type 2 diabetes mellitus with hyperglycemia Additional A&P Information After reviewing the above and also based on the patient's the clinical progress, further recommendations will be made. Thank you for the opportunity to eval this patient and make these recommendations Attestations Medical Necessity Statement*: Patient require continuation hospitalization for above defined care. Coding Level of Care Code Established Pt Acute [employer] Miller for [facility] Patient Type Established History Detailed Exam Detailed Medical Decision Making Moderate Complexity Diagnoses Atrial fibrillation with tachycardic ventricular rate I48.91 Hypertension I10 Hypertension type: essential hypertension Mass of lung R91.8 Hyperlipidemia E78.2 Hyperlipidemia type: mixed hyperlipidemia Atypical chest pain R07.89 Diabetes E11.65 Diabetes mellitus type: type 2 Diabetes mellitus [facility] insulin use: without exterminator helper use Diabetes mellitus complication status: with hyperglycemia
--- NOTE | 2021-06-20 23:20 | PC.NURSE ---
Patient anxious and upset. Reports she cannot sleep. Patient requesting something to help with sleep. Spoke with Dr Mcclelland and received Xanax 0.5mg PO onetime now. RBVO
[2021-06-20] MEDS: ALPRAZolam 0.5 mg Tablet PO (23:23)
--- NOTE | 2021-06-20 23:37 | PC.NURSE ---
Administered Xanax as ordered. Patient very anxious and upset that there is a fair amount of foot traffic up and down the halls at night. Patient reports I just want to go home. I am not comfortable here. I am use to total quiet at night [place]. Provided reassurance as possible. Closed patient's door for added noise reduction. Stayed and visited with patient for a while. Patient appears mildly depressed related to declining health. Patient stated, I feel like doctors are just practicing on what to do. They are just not real sure. Provided positive reinforcement. Patient expressed thanks but continues to appear melancholy.
--- NOTE | 2021-06-20 23:42 | PC.NURSE ---
Patient currently NSR with heart rate in the 70s sustained.
[2021-06-21] VITALS (10 sets, daily range): BP systolic 111–136; BP diastolic 58–81; PULSE 68–123; RESP 16–28; TEMP 36.8–36.9; O2SAT 95–97
[2021-06-21 06:18] LABS: Glucose Point of Care 128 mg/dL (70-110)
--- NOTE | 2021-06-21 06:30 | PC.NURSE ---
Shift Note Frequent safety and comfort rounds continue. Orders and/or nursing care completed as indicated. Patient monitored for response to intervention and treatment(s). Education provided includes amiodarone and metoprolol. Patient verbalized complete understanding. Patient has been in NSR since shift change last night with heart rate averaging 70-75. Patient reports feeling much better. Patient denies pain or needs this morning. No distress observed. Will continue to monitor.
[2021-06-21] MEDS: amiodarone 200 mg Tablet 400 MG PO ×3 (07:52→20:39)
[2021-06-21] MEDS: BuSPIRONE 10 mg Tablet PO ×3 (07:52→20:39)
[2021-06-21] MEDS: apixaban 5 mg Tablet PO ×2 (07:53→18:00)
[2021-06-21] MEDS: sucralfate 1 gm Tablet PO ×3 (07:53→20:44)
[2021-06-21] MEDS: pantoprazole DR 40 mg Tablet PO (07:54)
[2021-06-21] MEDS: PARoxetine 20 mg Tablet PO (07:54)
[2021-06-21] MEDS: atorvastatin 40 mg Tablet PO (07:54)
[2021-06-21] MEDS: metoprolol tartrate 25 mg Tablet 75 MG PO ×2 (07:55→20:43)
[2021-06-21] MEDS: ferrous gluconate 324 mg Tablet PO ×2 (08:07→18:00)
[2021-06-21 10:47] LABS: Glucose Point of Care 157 mg/dL (70-110)
--- NOTE | 2021-06-21 11:22 | PM.PN ---
Subjective Subjective: Interval history: Patient converted in sinus rhythm after couple of hours turning off amiodarone drip she went back into A. fib. She would like to go home and frustrated about it as she will not be going home today since she is back in A. fib Vitals/I&O/Wt Last Vital Signs Temp 98.3 F 06/21/21 06:15 Pulse 80 06/21/21 09:26 Resp 20 H 06/21/21 08:43 BP 136/67 06/21/21 06:15 Pulse Ox 96 06/21/21 08:43 06/20/21 06/21/21 06/21/21 22:59 06:59 14:59 Intake Total 975.424 / 1455.424 Balance 975.424 / 1455.424 Weight last 48 hrs Weight 250 lb 9.6 oz Weight 251 lb Weight 250 lb Physical Exam Narrative: EXAM NARRATIVE: GENERAL: Patient is alert, awake and oriented x3. NECK: No jugular vein distension. HEENT: No cyanosis. No icterus. No pallor. HEART: Irregularly irregular S1 and S2. LUNGS: Clear to auscultate bilaterally. ABDOMEN: Soft, nontender and nondistended. Positive bowel sounds. No guarding, rebound or tenderness. CENTRAL NERVOUS SYSTEM: Grossly nonfocal. EXTREMITIES: Lower extremities withoutedema bilaterally. Data : 06/20/21 04:13 06/20/21 04:13 A&P Assessment and plan (1) Atrial fibrillation with tachycardic ventricular rate: I will increase amiodarone continue metoprolol 75 twice daily. Continue anticoagulation Status: Acute (2) Hypertension: Well-controlled. Continue current regimen Status: Acute Qualifiers: Hypertension type: essential hypertension Qualified Code(s): I10 - Essential (primary) hypertension (3) Mass of lung: As per medicine Status: Acute (4) Hyperlipidemia: Continue current regimen of statin Status: Acute Qualifiers: Hyperlipidemia type: mixed hyperlipidemia Qualified Code(s): E78.2 - Mixed hyperlipidemia (5) Atypical chest pain: As suggested before discharge or as an outpatient will last for stress test. Currently denies any more chest pain Status: Acute (6) Diabetes: Need to be closely monitored. Status: Acute Qualifiers: Diabetes mellitus complication status: with hyperglycemia Diabetes mellitus retirement insulin use: without buttermilk drier operator use Diabetes mellitus type: type 2 Qualified Code(s): E11.65 - Type 2 diabetes mellitus with hyperglycemia Additional A&P Information After reviewing the above and also based on the patient's the clinical progress, further recommendations will be made. 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
--- NOTE | 2021-06-21 14:14 | PM.PN ---
Subjective Subjective: Interval history: Good morning on examination patient's at bedside. She had converted back to normal sinus rhythm but went back into A. fib after stopping amnio drip and minimal exertion. States wants to go home. Denies any nausea, wanting, headache, dizziness, difficulty in breathing, chest pain. Vitals/I&O/Wt Last Vital Signs Temp 98.4 F 06/21/21 12:00 Pulse 84 06/21/21 12:00 Resp 28 H 06/21/21 12:00 BP 131/81 06/21/21 12:00 Pulse Ox 95 06/21/21 12:00 06/20/21 06/21/21 06/21/21 22:59 06:59 14:59 Intake Total 975.424 / 1455.424 Balance 975.424 / 1455.424 Weight last 48 hrs Weight 113.67 kg Weight 113.852 kg Physical Exam Narrative: EXAM NARRATIVE: General: No acute distress, AO x3, anxious HEENT: PERRLA, pupils bilaterally equal and reactive Chest: Normal vesicular breath sounds, bilateral fine crackles in the lower zones, good equal air entry bilaterally CVS: S1-S2 irregularly irregular, no murmurs, no tachycardia, no gallops, no rubs Abdomen: Soft, nontender, no organomegaly, bowel sounds present Neuro: No focal deficits, no facial deformity, AO x3, power 5/5 in all limbs Data : 06/20/21 04:13 06/20/21 04:13 A&P Assessment and plan (1) Atrial fibrillation: Status: Acute Qualifiers: Atrial fibrillation type: unspecified Qualified Code(s): I48.91 - Unspecified atrial fibrillation (2) Diastolic heart failure: Status: Acute (3) Diabetes: Status: Acute Qualifiers: Diabetes mellitus type: type 2 Diabetes mellitus attendant child activity insulin use: without mcfp use Diabetes mellitus complication status: with hyperglycemia Qualified Code(s): E11.65 - Type 2 diabetes mellitus with hyperglycemia (4) Hypertension: Status: Acute Qualifiers: Hypertension type: essential hypertension Qualified Code(s): I10 - Essential (primary) hypertension (5) Hyperlipidemia: Status: Acute Qualifiers: Hyperlipidemia type: mixed hyperlipidemia Qualified Code(s): E78.2 - Mixed hyperlipidemia (6) Mass of lung: Status: Acute Additional A&P Information Given lab holiday today. Afib: Difficult to control on previous admission. Failed cardizem, esmolol, digoxin. Appreciate cardiology recommendations. Increase amiodarone to 400 mg 3 times a day. Continue with metoprolol 75 mg twice daily For now patient would want to hold off on electrocardioversion and think more regarding the same. C/w eliquis 5 mg BID. Telemetry. ECHO done recently last week shows EF of 55%, Mod dilated RA/RV Congestive heart failure: Diastolic. Euvolemic for now. Received 40 mg IV Lasix once on admission. For now continue to monitor. Strict input output charting, daily weights. Type 2 DM: A1c 6.5. Stop OHAs. ISS HTN: Goal BP less than 140/90 mmhg. C/w Amio and metoprolol. Monitor BP and if elevated will home dose of ACEi. Anxiety: Increase BuSpar to 10 mg 3 times daily, continue with home dose of paroxetine. Possible malignancy: Post biopsy with Dr. Ricci. With follow-up with pulmonology as an outpatient on discharge. Start on Spiriva. Oxygen supplementation keeping saturation over 90%. Out of bed to chair. FC Carb cardiac diet Protonix for PUD Eliquis will help DVT PPx Attestations Medical Necessity Statement*: For evaluation for management of atrial fibrillation with rapid ventricular response Time Spent in Patient Care: Greater than 35 minutes (>than 50% of time spent in counselling and/or direct pt care on unit). 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
--- NOTE | 2021-06-21 17:00 | PC.NURSE ---
Pt sitting in chair watching tv and visiting with . Pt had no c/o pain or discomfort at the present time. No needs voiced at the present time. Call light in reach. Will cont to monitor.
[2021-06-21 20:23] LABS: Glucose Point of Care 173 mg/dL (70-110)
--- NOTE | 2021-06-21 20:27 | PC.NURSE ---
Received report from KEVIN Shah. Patient up to chair. Spouse at bedside. Dr Miller in to see patient. Reports patient will most likely be discharged tomorrow. Patient expressed great thanks and spirits perked a bit. Discussed increased dose of amiodarone for heart rate control. Patient verbalized complete understanding. No pain or needs. No distress observed. Will continue to monitor.
[2021-06-21] MEDS: ALPRAZolam 0.5 mg Tablet PO (20:39)
[2021-06-22 04:25] VITALS: BP 112/53; PULSE 91; RESP 20; TEMP 36.8; O2SAT 97
--- NOTE | 2021-06-22 04:38 | PC.NURSE ---
Shift Note Frequent safety and comfort rounds continue. Orders and/or nursing care completed as indicated. Patient monitored for response to intervention and treatment(s). Education provided includes xanax. Patient verbalized complete understanding. Patient sitting up on the edge of bed. Patient reports not able to sleep well this night. Patient feels down due to recent health issues. Sat and talked with patient for a while. Patient expressed thanks. Patient denies pain or other needs presently. No distress observed. Will continue to monitor.
[2021-06-22 04:50] VITALS: PULSE 97
[2021-06-22 04:53] LABS: Basophils # 0.1 10^3/uL (0.0-0.1); Basophils % 0.4 %; Eosinophils # 0.1 10^3/uL (0.0-0.8); Eosinophils % 0.4 %; Hematocrit 32.6 % (37.0-47.0); Hemoglobin 10.1 g/dL (11.5-15.3); Lymphocytes # 2.2 10^3/uL (0.8-4.8); Lymphocytes % 15.4 %; Mean Corpuscular Hemoglobin 29.8 pg (28.0-34.0); Mean Corpuscular Volume 96.2 fl (81-99); Mean Platelet Volume 10.1 fL (7.4-10.4); Monocytes # 1.3 10^3/uL (0.2-0.9); Monocytes % 8.8 %; Neutrophils # 10.56 10^3/uL (1.8-7.7); Neutrophils % 74.4 %; Nucleated Red Blood Cells % 0 %; Platelet Count 415 10^3/cmm (130-400); Red Blood Count 3.39 10^6/uL (4.1-5.3); Red Cell Distribution Width 12.7 % (12.1-15.1); White Blood Count 14.2 10^3/uL (4.0-10.0)
[2021-06-22 05:14] LABS: Alanine Aminotransferase 26 U/L (0-33); Albumin Level 2.8 g/dL (3.5-5.2); Alkaline Phosphatase 140 IU/L (35-105); Aspartate Amino Transferase 15 U/L (0-32); Blood Urea Nitrogen 16 mg/dL (8-23); Calcium 8.7 mg/dL (8.5-10.5); Carbon Dioxide 26 mmol/L (22-29); Chloride 97 mmol/L (98-107); Globulin 3.6 g/dL (1.3-4.6); Glomerular Filtration Rate 124.2 mL/min (90-130); Glucose 118 mg/dL (65-115); Osmolality Calculated 282 mOsm/kg (285-295); Sodium 135 mmol/L (136-145); Total Bilirubin 0.2 mg/dL (0.15-1.2); Total Protein 6.4 g/dL (6.6-8.7)
[2021-06-22 06:22] LABS: Glucose Point of Care 120 mg/dL (70-110)
[2021-06-22 07:33] VITALS: BP 119/88; PULSE 90; RESP 18; TEMP 36.8; O2SAT 98
[2021-06-22 08:20] VITALS: PULSE 102; RESP 18; O2SAT 98
[2021-06-22] MEDS: metoprolol tartrate 25 mg Tablet 75 MG PO (08:23)
[2021-06-22] MEDS: apixaban 5 mg Tablet PO (08:24)
[2021-06-22] MEDS: pantoprazole DR 40 mg Tablet PO (08:24)
[2021-06-22] MEDS: BuSPIRONE 10 mg Tablet PO (08:24)
[2021-06-22] MEDS: amiodarone 200 mg Tablet 400 MG PO (08:24)
[2021-06-22] MEDS: PARoxetine 20 mg Tablet PO (08:24)
[2021-06-22] MEDS: atorvastatin 40 mg Tablet PO (08:24)
[2021-06-22] MEDS: sucralfate 1 gm Tablet PO (08:24)
[2021-06-22] MEDS: ferrous gluconate 324 mg Tablet PO (08:24)
--- NOTE | 2021-06-22 10:54 | PM.DCS ---
Discharge Providers Date of Admission: 06/19/21 17:45 Date of Discharge: June 22, 2021 Attending Provider at Admission: Vimal Lockwood MD Attending Provider at Discharge: Aron Carr MD Consults: Cardiology: Dr. Starks/Dr. Miller Primary Care Provider: Isabella Perez MD Diagnoses at Discharge Discharge Diagnosis (1) Atrial fibrillation: Status: Acute Qualifiers: Atrial fibrillation type: unspecified Qualified Code(s): I48.91 - Unspecified atrial fibrillation (2) Diastolic heart failure: Status: Acute (3) Diabetes: Status: Acute Qualifiers: Diabetes mellitus type: type 2 Diabetes mellitus technician terminal and repeater insulin use: without senior care use Diabetes mellitus complication status: with hyperglycemia Qualified Code(s): E11.65 - Type 2 diabetes mellitus with hyperglycemia (4) Hypertension: Status: Acute Qualifiers: Hypertension type: essential hypertension Qualified Code(s): I10 - Essential (primary) hypertension (5) Hyperlipidemia: Status: Acute Qualifiers: Hyperlipidemia type: mixed hyperlipidemia Qualified Code(s): E78.2 - Mixed hyperlipidemia (6) Mass of lung: Status: Acute Reason for Visit Reason for Visit: SOB/ WEAK/ AFIB WITH RVR Hospital Course Hospital Course Carolann Murguia is a 66 year old female with PMH of HTN, DM, HLD, lung mass probable cancer under evaluation and post bronchoscopy and biopsy on 06/15, previously admitted to hospital last week for difficult to control afib. She had failed Cardizem, esmolol and was eventually placed on amiodarone. She received several doses of digoxin, and had metoprolol started orally. Cardiology was consulted. With this treatment heart rate gradually improved to where she converted on June 14 and was discharged on 06/15. She presented to ER today with complaint of feeling dizzy, out of breath and palpitations on and off since the day of discharge. She states her medications are twice daily and does not think it is doing enough and there are multiple times during the day when her heart rate is high. Denies any chest pain, fall, diarrhea, dysuria. HR of 150s for she received 150 mg IV bolus and metoprolol of HR in 90s going upto 110s for which hospitalist service was consulted for for further care. Blood work should Hb of 10.3, na of 136, creat of 0.5, Alp of 152, baseline trop of 52 with delta of 11, BNP of 1955, TSH of 0.19, free T4 of 1.7 Patient went to the hospital for further management of atrial fibrillation with rapid ventricular response. She was started on amiodarone drip as per protocol which was transitioned over to increase dose of amiodarone 400 mg 3 times daily. Her dose of metoprolol was increased to 75 mg twice daily. Patient responded gradually to the treatment and has been going in between sinus rhythm with paroxysmal A. fib. Cardiology was consulted. During hospitalization patient was found to be fairly anxious for which her dose of BuSpar was increased and was given as needed Xanax. Patient has been discharged in hemodynamically stable condition with advised to follow-up with Dr. Ricci on next Friday for further discussion of results of lung biopsy, with Dr. Miller on for further management of rate controlling medications. Patient is to have a Holter monitor placed before she is discharged today. Physical Exam Narrative: EXAM NARRATIVE: General: No acute distress, AO x3, anxious HEENT: PERRLA, pupils bilaterally equal and reactive Chest: Normal vesicular breath sounds, bilateral fine crackles in the lower zones, good equal air entry bilaterally CVS: S1-S2 irregularly irregular, no murmurs, no tachycardia, no gallops, no rubs Abdomen: Soft, nontender, no organomegaly, bowel sounds present Neuro: No focal deficits, no facial deformity, AO x3, power 5/5 in all limbs Discharge Data Data Completed and Pending: Completed Studies During Hospitalization Category Date Time Status XR chest 1V bonnie ble [id number] Urgent Exams 06/19/21 12:46 Completed Labs from last 24 hours 06/22/21 06/22/21 06/22/21 06:18 04:13 04:13 WBC 14.2 H RBC 3.39 L Hgb 10.1 L Hct 32.6 L MCV 96.2 MCH 29.8 MCHC 31.0 RDW 12.7 Plt Count 415 H MPV 10.1 Neut % (Auto) 74.4 Lymph % (Auto) 15.4 [place]ette % (Auto) 8.8 Eos % (Auto) 0.4 Baso % (Auto) 0.4 Neut # (Auto) 10.56 H Lymph # (Auto) 2.2 Payette # (Auto) 1.3 H Eos # (Auto) 0.1 Baso # (Auto) 0.1 Nucleated RBC % (a uto) 0 Nucleated RBCs # 0.0 Sodium 135 L Potassium 4.0 Chloride 97 L Carbon Dioxide 26 Anion Gap 16.0 BUN 16 Creatinine 0.5 GFR Calculation 124.2 Glucose 118 H POC Glucose 120 H Calculated Osmolal ity 282 L Calcium 8.7 Total Bilirubin 0.2 AST 15 ALT 26 Alkaline Phosphata se 140 H Total Protein 6.4 L Albumin 2.8 L Globulin 3.6 06/21/21 19:47 WBC RBC Hgb Hct MCV MCH MCHC RDW Plt Count MPV Neut % (Auto) Lymph % (Auto) [place] % (Auto) Eos % (Auto) Baso % (Auto) Neut # (Auto) Lymph # (Auto) Payette # (Auto) Eos # (Auto) Baso # (Auto) Nucleated RBC % (a uto) Nucleated RBCs # Sodium Potassium Chloride Carbon Dioxide Anion Gap BUN Creatinine GFR Calculation Glucose POC Glucose 173 H Calculated Osmolal ity Calcium Total Bilirubin AST ALT Alkaline Phosphata se Total Protein Albumin Globulin Addt'l Data from Hospital Stay: Laboratory Results WBC 14.2 10^3/uL (4.0 -10.0) H 06/22/21 04:13 RBC 3.39 10^6/uL (4.1 -5.3) L 06/22/21 04:13 Hgb 10.1 g/dL (11.5-1 5.3) L 06/22/21 04:13 Hct 32.6 % (37.0-47.0 ) L 06/22/21 04:13 MCV 96.2 fl (81-99) 06/22/21 04:13 MCH 29.8 pg (28.0-34. 0) 06/22/21 04:13 MCHC 31.0 g/dL (30.0-3 6.0) 06/22/21 04:13 RDW 12.7 % (12.1-15.1 ) 06/22/21 04:13 Plt Count 415 10^3/cmm (130 -400) H 06/22/21 04:13 MPV 10.1 fL (7.4-10.4 ) 06/22/21 04:13 Neut % (Auto) 74.4 % 06/22/21 04:13 Lymph % (Auto) 15.4 % 06/22/21 04:13 [place] % (Auto) 8.8 % 06/22/21 04:13 Eos % (Auto) 0.4 % 06/22/21 04:13 Baso % (Auto) 0.4 % 06/22/21 04:13 Neut # (Auto) 10.56 10^3/uL (1. 8-7.7) H 06/22/21 04:13 Lymph # (Auto) 2.2 10^3/uL (0.8- 4.8) 06/22/21 04:13 [place]ette # (Auto) 1.3 10^3/uL (0.2- 0.9) H 06/22/21 04:13 Eos # (Auto) 0.1 10^3/uL (0.0- 0.8) 06/22/21 04:13 Baso # (Auto) 0.1 10^3/uL (0.0- 0.1) 06/22/21 04:13 Nucleated RBC % (a uto) 0 % 06/22/21 04:13 Nucleated RBCs # 0.0 /100WBC 06/22/21 04:13 Sodium 135 mmol/L (136-1 45) L 06/22/21 04:13 Potassium 4.0 mmol/L (3.5-5 .1) 06/22/21 04:13 Chloride 97 mmol/L (98-107 ) L 06/22/21 04:13 Carbon Dioxide 26 mmol/L (22-29) 06/22/21 04:13 Anion Gap 16.0 (5-19) 06/22/21 04:13 BUN 16 mg/dL (8-23) 06/22/21 04:13 Creatinine 0.5 mg/dL (0.5-0. 9) 06/22/21 04:13 GFR Calculation 124.2 mL/min (90- 130) 06/22/21 04:13 Glucose 118 mg/dL (65-115 ) H 06/22/21 04:13 POC Glucose 120 mg/dL (70-110 ) H 06/22/21 06:18 Estimat Average Gl ucose 140 06/20/21 04:13 Hemoglobin A1c 6.5 % (4.0-6.0) H 06/20/21 04:13 Calculated Osmolal ity 282 mOsm/kg (285- 295) L 06/22/21 04:13 Lactate 2.1 mmol/L (0.5-2 .2) 06/19/21 13:55 Calcium 8.7 mg/dL (8.5-10 .5) 06/22/21 04:13 Phosphorus 3.9 mg/dL (2.5-4. 5) 06/20/21 04:13 Magnesium 1.7 mg/dL (1.7-2. 3) 06/20/21 04:13 Iron 18 ug/dL (37-145) L 06/19/21 13:55 TIBC 198 mcg/dl 06/19/21 13:55 % Saturation 9.0 % (20-50) L 06/19/21 13:55 Unsat Iron Binding 180 ug/dL (112-34 7) 06/19/21 13:55 Total Bilirubin 0.2 mg/dL (0.15-1 .2) 06/22/21 04:13 AST 15 U/L (0-32) 06/22/21 04:13 ALT 26 U/L (0-33) 06/22/21 04:13 Alkaline Phosphata se 140 IU/L (35-105) H 06/22/21 04:13 Troponin T Baselin e 56 ng/L (0-10) H 06/19/21 13:55 Troponin T 120 Min [place] 67.37 ng/L (0-10) H 06/19/21 16:50 Delta Troponin T 11.37 ABS# (0-10) H* 06/19/21 16:50 Troponin T Hi Sens 6Hr 63.22 ng/L (0-10) H 06/19/21 19:45 Troponin T Hi Sens 6Hr Delta 7.22 ng/L (0-12) 06/19/21 19:45 NT-Pro-B Natriuret Pep 1955 pg/mL (0-125 ) H 06/19/21 13:55 Total Protein 6.4 g/dL (6.6-8.7 ) L 06/22/21 04:13 Albumin 2.8 g/dL (3.5-5.2 ) L 06/22/21 04:13 Globulin 3.6 g/dL (1.3-4.6 ) 06/22/21 04:13 Triglycerides 92 mg/dL (0-150) 06/20/21 04:13 Cholesterol 91 mg/dL (0-200) 06/20/21 04:13 LDL Cholesterol, C alc 41 mg/dL (50-129) L 06/20/21 04:13 Total VLDL Cholest ab 18 mg/dL (0-30) 06/20/21 04:13 HDL Cholesterol 32 mg/dL (60-100) L 06/20/21 04:13 Cholesterol/HDL Ra jas 2.84 mg/dL (0.0-4 .40) 06/20/21 04:13 Procalcitonin 0.07 ng/mL (0-0.5 ) 06/19/21 13:55 TSH 0.19 uIU/mL (0.27 -4.20) L 06/19/21 13:55 Free T4 1.70 ng/dL (0.82- 1.77) 06/19/21 13:55 Urine Color Dark yellow (Yel low) 06/19/21 14:26 Urine Appearance Hazy (CLEAR) A 06/19/21 14:26 Urine pH 5 (5-7) 06/19/21 14:26 Ur Specific Gravit y 1.020 (1.005-1.0 30) 06/19/21 14:26 Urine Protein Neg (Negative) 06/19/21 14:26 Urine Glucose (UA) Norm (Normal) 06/19/21 14:26 Urine Ketones Negative (Negati ve) 06/19/21 14:26 Urine Blood 2+ (Negative) H 06/19/21 14:26 Urine Nitrate Negative (Negati ve) 06/19/21 14:26 Urine Bilirubin 1+ (Negative) H 06/19/21 14:26 Urine Urobilinogen 1 mg/dL (Negative ) H 06/19/21 14:26 Ur Leukocyte Teresa ase Trace (Negative) H 06/19/21 14:26 Urine RBC 0-4 /hpf (0-2) H 06/19/21 14:26 Urine WBC 5-10 /hpf (0-5) H 06/19/21 14:26 Ur Squamous Epith Cells 25-40 /hpf (0-5) H 06/19/21 14:26 Amorphous Sediment Not Reportable 06/19/21 14:26 Urine Bacteria 2+ /hpf (NONE) H 06/19/21 14:26 Urine Mucus 2+ /hpf 06/19/21 14:26 Impressions Chest X-Ray 06/19/21 12:46 IMPRESSION: Cardiomegaly with vascular congestion consistent with heart failure. Echocardiogram: CONCLUSIONS Limited echo 1-Normal left ventricular cavity size. Normal left ventricular systolic function. Left ventricular ejection fraction is estimated at 55 %. 2-Moderately increased right ventricular size. 3-Moderately increased right atrial size. 4-Moderately thickened mitral valve. No mitral valve stenosis. Mild mitral valve regurgitation. 5-There is no pericardial effusion. 6-There are no prior echocardiogram studies to compare. Vimal Miller MD (Electronically Signed) Final Date: 12 June 2021 20:08 S Vitals: Last Vital Signs Temp 98.2 F 06/22/21 07:33 Pulse 102 H 06/22/21 08:20 Resp 18 06/22/21 08:20 BP 119/88 06/22/21 07:33 Pulse Ox 98 06/22/21 08:20 Discharge Plan Discharge Patient Disposition: Home Condition: Stable Prescriptions: New Pacerone 200 mg Tablet 400 mg PO TID 14 Days Qty: 84 RF: 0 buspirone 10 mg Tablet 10 mg PO TID 30 Days Qty: 90 RF: 0 ferrous gluconate 324 mg (37.5 mg iron) Tablet 324 mg PO BIDWM 30 Days Qty: 60 RF: 0 Spiriva with HandiHaler 18 mcg capsule, w/inhalation device 1 cap inhalation DAILY Qty: 30 RF: 0 metoprolol tartrate 75 mg tablet 75 mg PO BID 30 Days Qty: 60 RF: 0 furosemide [Lasix] 20 mg tablet 20 mg PO QAM Qty: 14 RF: 0 potassium chloride 10 mEq capsule, extended release 10 meq PO DAILY Qty: 14 RF: 0 Continued olmesartan 20 mg tablet 20 mg PO DAILY Qty: 30 RF: 4 nystatin 100,000 unit/mL suspension 5 ml PO QID Qty: 200 RF: 0 tizanidine 4 mg tablet 4 mg PO BEDTIME PRN (Reason: Muscle Pain) RF: 0 rosuvastatin 10 mg tablet 10 mg PO DAILY RF: 0 sucralfate 1 gram tablet 1 g PO QID RF: 0 paroxetine HCl 20 mg tablet 20 mg PO DAILY RF: 0 metformin 500 mg tablet extended release 24 hr 1,000 mg PO BID RF: 0 Dexilant 60 mg capsule,biphase delayed releas 60 mg PO DAILY RF: 0 Victoza 3-Etienne 0.6 mg/0.1 mL (18 mg/3 mL) pen injector 1.8 mg SUBCUT DAILY RF: 0 Eliquis 5 mg tablet 5 mg PO BID Qty: 60 RF: 0 Discontinued hydrochlorothiazide 25 mg tablet 25 mg PO DAILY Qty: 30 RF: 3 buspirone 5 mg tablet 5 mg PO BID RF: 0 amiodarone [Pacerone] 200 mg Tablet 400 mg PO BID Qty: 60 RF: 0 metoprolol tartrate 25 mg tablet 25 mg PO Q12H Qty: 60 RF: 0 Discharge Orders: Discharge Order (Routine); Ordered 06/22/21 Ordered By: Aron Carr Other Ambulatory Orders: ECG holter monitor 24 hour (Routine) Timeframe: 2 Weeks Facility: [facility] - Location: Cardiac Diagnostic Laboratory Ordered By: Aron Carr Referrals: Vimal Miller MD [Physician] - 4-7 days Chrissy Ricci MD [Physician] - 06/26/21 Isabella Perez MD [Primary Care Provider] - 4-7 days Discharge Diet: Cardiac Discharge Activity: Resume usual activity Patient Instructions: Opioid Safety Activity Restrictions/Additional Instructions: Please follow-up with Dr. Ricci on the set date. Please follow-up with Dr. Miller on next . Dose of amiodarone has been increased to 400 mg 3 times a day, metoprolol 75 mg twice daily. Dose of BuSpar has been increased to 10 mg 3 times a day. Discharge Attestations Time Spent in Discharge Care*: greater than 30 min Specific Discharge Activities: educating patient, educating and/or supporting family/caregiver, discussing with pcp/other providers, discussing with case assembler/social workers/dc planners, documenting/other paperwork and evaluating patient/reviewing data Status at Discharge: Cognitive status at discharge: cognitively intact, Behavioral status at discharge: cooperative, Functional status at discharge: uses cane/walker Overall status at discharge: patient is back to baseline Quality Metrics Clinical Quality Measures During this hospital stay, did patient experience: None Coding Level of Care Code Acute [facility] DC note Diagnoses Atrial fibrillation I48.91 Atrial fibrillation type: unspecified Diastolic heart failure I50.30 Diabetes E11.65 Diabetes mellitus type: type 2 Diabetes mellitus technician terminal and repeater insulin use: without technician terminal and repeater use Diabetes mellitus complication status: with hyperglycemia Hypertension I10 Hypertension type: essential hypertension Hyperlipidemia E78.2 Hyperlipidemia type: mixed hyperlipidemia Mass of lung R91.8
[2021-06-22 11:27] VITALS: BP 131/80; PULSE 94; RESP 16; TEMP 36.9; O2SAT 97
[2021-06-22 11:30] LABS: Glucose Point of Care 115 mg/dL (70-110)
--- NOTE | 2021-06-22 12:03 | PC.NURSE ---
to heart care services for an event monitor
[2021-06-22 12:06] VITALS: BP 131/80; PULSE 94; RESP 16; TEMP 36.9; O2SAT 97
--- NOTE | 2021-06-22 13:10 | PC.NURSE ---
Discharge Note Patient discharged to home via bed accompanied by with her portable oxygen with her at 2 L. Discharge instructions reviewed with patient and/or loan representative. Mobile pharmacy medications and/or prescriptions provided. Belongings/home medications returned. Pt explained that the [facility] is fully booked so the latest appointment she will see Dr. Miller is as written. Informed to pt to call [facility] if o ask them if they can move her schedule if there is any pt's cancelation. Pt verbalizes understanding. Educated on her new meds and dosage adjustment as prescribed.
--- NOTE | 2021-06-22 13:14 | PC.CHAP ---
Pastoral Care Encounter/Spiritual Assessment Type of Contact [] Declined sound tester visit [] Patient/Family/Request visit [] Outpatient visit [xx] Follow-up visit [] Physician referral [] Code/Alert [xx] Routine visit [] Staff referral [] Actively dying [] Patient sleeping [] Family support [] [] Out of room [] Palliative care [] [] Receiving care in room [] Pre-surgical visit [] Trauma [] Long length of stay [] ICU visit [] Other: Relational/Emotional Strength [xx] Patient feels connected with others/family/visitors/staff [] Distress [] Loneliness/isolation [] Abandonment Spirituality of Patient [xx] Person of Tamera [] Attends Congregational of their Tamera [xx] Believes in Prayer [xx] Reads Bible or Scientologist materials [] There are Spiritual issues to be addressed Dredge Operator Interventions [xx] Prayer [xx] Active listening [xx] Non-anxious presence [] Spiritual/emotional support [] Crisis/trauma care [] Spiritual counseling [] Bereavement support [] Provided bereavement packet [xx] Provided Bible/devotional materials [] Provided toy/stuffed animal, coloring book to patient or family member [] Provided Communion [] Anointing/[place] [] Salvation [xx] Completed spiritual assessment [] Other: Impact on Illness or Injury [] Angry [] Fearful [] Anxious [] Often cries [] Exhaustion [] Unable to work [] Unable to attend anabaptism [] Unable to walk/stand [] Unable to read [] Unable to drive [] Unable to eat/drink [] Unable to sleep [] Unable to be with family [] Patient intubated [] Other: Summary Patient's spouse, Nimesh, present. Patient is feeling better and wants to go home. Time spent with patient 5 minutes
--- NOTE | 2021-06-22 13:30 | PC.NURSE ---
Hand off report to called to [facility] [phone]. Discuss to Tavia warner regarding pt's discharge disposition and discharge meds.
--- NOTE | 2021-06-22 15:29 | PM.PN ---
Subjective Subjective: Interval history: Patient is adamant about going home. Heart rate is reasonably under control she was in sinus rhythm last night but goes went back into A. fib this morning Vitals/I&O/Wt Last Vital Signs Temp 98.5 F 06/22/21 12:06 Pulse 94 06/22/21 12:06 Resp 16 06/22/21 12:06 BP 131/80 06/22/21 12:06 Pulse Ox 97 06/22/21 12:06 06/22/21 06/22/21 06/22/21 06:59 14:59 22:59 Intake Total 480 / 1095.02 822 / 822 Balance 480 / 1095.02 822 / 822 Weight last 48 hrs Weight 280 lb 8 oz Weight 250 lb 9.6 oz Physical Exam Narrative: EXAM NARRATIVE: GENERAL: Patient is alert, awake and oriented x3. NECK: No jugular vein distension. HEENT: No cyanosis. No icterus. No pallor. HEART: Irregularly irregular S1 and S2. LUNGS: Clear to auscultate bilaterally. ABDOMEN: Soft, nontender and nondistended. Positive bowel sounds. No guarding, rebound or tenderness. CENTRAL NERVOUS SYSTEM: Grossly nonfocal. EXTREMITIES: Lower extremities withoutedema bilaterally. Data : 06/22/21 04:13 06/22/21 04:13 A&P Assessment and plan (1) Atrial fibrillation with tachycardic ventricular rate: Continue amiodarone 200 mg 3 times daily along with metoprolol 75 mg twice a day. Patient can be discharged home on event monitor we will follow her up in the clinic Status: Acute (2) Hypertension: Well-controlled. Continue current regimen Status: Acute Qualifiers: Hypertension type: essential hypertension Qualified Code(s): I10 - Essential (primary) hypertension (3) Mass of lung: As per medicine Status: Acute (4) Hyperlipidemia: Continue current regimen of statin Status: Acute Qualifiers: Hyperlipidemia type: mixed hyperlipidemia Qualified Code(s): E78.2 - Mixed hyperlipidemia (5) Atypical chest pain: As suggested before discharge or as an outpatient will last for stress test. Currently denies any more chest pain Status: Acute (6) Diabetes: Need to be closely monitored. 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 Thank you for the opportunity to eval this patient and make these recommendations Attestations Medical Necessity Statement*: Patient require continuation hospitalization for above defined care Coding Level of Care Code Established Pt Acute Commercial Loan Specialist for Chg Fwd Patient Type Established History Detailed Exam Detailed Medical Decision Making Moderate Complexity Diagnoses Atrial fibrillation with tachycardic ventricular rate I48.91 Hypertension I10 Hypertension type: essential hypertension Mass of lung R91.8 Hyperlipidemia E78.2 Hyperlipidemia type: mixed hyperlipidemia Atypical chest pain R07.89 Diabetes E11.65 Diabetes mellitus type: type 2 Diabetes 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
--- NOTE | 2021-06-22 15:30 | PC.RESP ---
PULMONARY REHAB INFORMATION SENT TO PATIENT.
--- NOTE | 2021-06-26 09:16 | PC.SOCIAL ---
discharge follow up call made. spoke with patient. patient reports she has good and bad days. continues to have some weakness. went over new medications with patient, she didn't roll picker the spiriva inhaler, she wasn't aware it was sent to [facility], check writer will call and verify with [facility] to see if they have a prescription. discussed changed and discontinued medications, patient wasn't aware that hctz was discontinued, but she will stop taking now. patient is aware of all follow up appointment dates and times. [facility] is also coming into patients home to help with med set up and follow up appointments. spoke with [facility], they do have the inhaler, check writer will let patient know.
== END 2021-06-22 13:29 | disposition home health service (06) | DRG 308 ==
LOC: ER 13:26 → ER IP 21:54 → CSU 22:07
PROVIDERS: Admitting Provider Internal Medicine; Emergency Provider Emergency Medicine; PCP Family Medicine; Visit Provider Student in an Organized Health Care Education/Training Program
DX: I48.0 Paroxysmal atrial fibrillation (principal); I50.33 Acute on chronic diastolic (congestive) heart failure; I47.2 Ventricular tachycardia; I11.0 Hypertensive heart disease with heart failure; R91.8 Other nonspecific abnormal finding of lung field; F41.9 Anxiety disorder, unspecified; E11.65 Type 2 diabetes mellitus with hyperglycemia; E78.5 Hyperlipidemia, unspecified; J44.9 Chronic obstructive pulmonary disease, unspecified; K21.9 Gastro-esophageal reflux disease without esophagitis; F17.211 Nicotine dependence, cigarettes, in remission; R07.89 Other chest pain; Z79.84 Long term (current) use of oral hypoglycemic drugs
CPT/HCPCS: 36415; 36416; 71045; 80053; 80061; 81001; 82962; 83036; 83540; 83550; 83605; 83735; 83880; 84100; 84145; 84439; 84443; 84484; 85025; 93005; 94640; 94664; 96365; 96367; 96375; 99291; J0282; J1940; J2405; J3475; J7040; J7060; J7614; J7644

== ENCOUNTER 2021-07-05 13:31 | Outpatient (CLI) | payer BC, SELFPAY ==
--- NOTE | 2021-07-05 16:12 | ONC CON_ITS ---
Dr. Segura New Patient Note Patient: Carolann Murguia Unit #: [id number]: 1955 Dicatated By: Claudia Segura M.D.Date of Visit: Jul 05, 2021 Onc MED New Patient/Consult Referring Physician: Dr. DAWSON PICHARDO M.D. History of Present Illness: Ms. Carolann Mruguia, is a 66-year-old female with history of abnormal chest x-ray done on April 22, 2021 when she went to hospital in [facility], with left chest pain/progressive shortness of breath, subsequently underwent CTA pulmonary which shows no pulmonary embolism but 5.5 cm mass extending from inferior hilum on the left side with pericardial involvement and trace left-sided pleural effusion was identified. Patient underwent CT PET scan on April 27, 2021 which confirmed hypermetabolic mass in the left hilum. And hypermetabolic focus in the left vocal cord was also seen. Patient had left hilar lymphadenopathy with SUV of 16.9. Patient was referred to pulmonology and bronchoscopy was scheduled on June 12, 2021 and just before procedure she was found to be in A. fib with RVR with heart rate 170s, patient was also symptomatic with shortness of breath, she was given Cardizem and with that she become hypotensive and was transferred to [facility] emergency room where she was converted to sinus rhythm with amiodarone and metoprolol and short course of Lovenox was also given. Bronchoscopy was rescheduled and was done on June 15, 2021 which showed left hilar mass transbronchial biopsy confirmed adenocarcinoma whereas ultrasound-guided endobronchial biopsy of station 7 and left upper lobe showed no evidence of malignancy immunohistochemistry were positive for CK7, CK 8/18 LMW, CK Arya,, negative for TTF-1 Patient denies any history of hemoptysis or hematemesis, denies any fever chills denies any nausea or vomiting, denies any diarrhea or constipation but lower extremity edema for which she is on Lasix by her PMD, patient is also wearing panel monitor. Patient has longstanding history of smoking for 45 years but quit 5 years ago, denies alcohol use. Past medical history significant for anxiety, diabetes, gastroesophageal reflux disease, hyperlipidemia, hypertension, COPD Past Medical History: Ms. Murguia's medical history consists of anxiety, atrial fibrillation, chronic obstructive pulmonary disease, gastroesophageal reflux disease, goiter, hyperlipidemia, hypertension, and type II diabetes. Past Surgical History: Ms. Murguia's surgical/procedural history consists of cholecystectomy and hysterectomy. Medications: Amiodarone HCl 1 Tablet (of 400 mg) Oral t.i.d., Apixaban 1 Tablet (of 5 mg) Oral b.i.d., busPIRone HCl 1 Tablet (of 10 mg) Oral daily, Dexlansoprazole 1 Tablet (of 60 mg) Capsule Delayed Release Oral daily, Ferrous Gluconate 1 Tablet (of 324 (37.5 fe) mg) Oral b.i.d., Furosemide 1 Tablet (of 40 mg) Oral daily, metFORMIN HCl 1 Tablet (of 1000 mg) Oral b.i.d., Metoprolol Tartrate 1 Tablet (of 100 mg) Oral b.i.d., Nystatin 5 mL (of 769779 Units/mL) Suspension Mouth/throat four times a day, Olmesartan Medoxomil 1 Tablet (of 20 mg) Oral daily, PARoxetine HCl 1 Tablet (of 20 mg) Oral daily, Potassium Chloride Glo ER 1 Tablet (of 10 meq) Tablet, controlled release Oral daily, Rosuvastatin Calcium 1 Tablet (of 10 mg) Oral daily, Spiriva HandiHaler 1 Inhalation (of 18 mcg) Capsule Inhalation daily, Sucralfate 1 Tablet (of 1 g) Oral four times a day, tiZANidine HCl 1 Tablet (of 4 mg) Oral at bedtime, traZODone HCl 1 Tablet (of 100 mg) Oral at bedtime, Victoza 1.8 mg (of 18 mg/3mL) Subcutaneous daily Allergies: Cefdinir Social History: Ms. Murguia is . Ms. Murguia quit smoking 5 years ago but had smoked 1.0 pack/day for 45 years. She has no history of drinking. Family History: There is no documented family history. Review Of Symptoms: Review of Systems is not available for this patient. Vital Signs: Performed on Jul 05, 2021 15:01: 9, 5, 41.19 (HIGH), 2.27 sq.m, 67 in, 95 % (LOW), 64 /min, 20 /min, 89/60 mm(hg) (LOW), 98.2 F (LOW), and 263 lbs (HIGH). Performance Status: 1 - No physically strenuous activity, but ambulatory and able to carry out light or sedentary work (e.g. office work, light house work). (ECOG) Physical Examination: ENMT - No visible edema or rash or cervical lymphadenopathy, Respiratory - Poor air entry otherwise clear, Cardiovascular - Irregular rate and rhythm, Abdomen - Soft, bowel sounds present, Extremities - Are 2+ edema bilaterally. Lab/Imaging: Most recent lab results are not available for this patient. Impression: Adenocarcinoma per ultrasound-guided endobronchial biopsy of left hilar mass done on June 15, 2021, immunohistochemistry stains positive for CK7, CK 8/18 LMW, CK Arya and negative for TTF-[address] PET scan done on April 27, 2021 showed hypermetabolic mass in the left hilum as well as hypermetabolic lymph nodes in the left hilum. Hypermetabolic focus at left vocal cord with possibility of soft tissue thickening. Left adrenal gland does not show increased metabolic activity. 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 As her last CT PET scan was done in March 2021, we will obtain baseline CT PET scan prior to discussed further treatment plans, if patient has local regional disease, we will consider combined chemoradiation on the other hand if she has metastatic disease, then will consider repeating biopsy to obtain enough tissue to do molecular profiling to identify targetable mutation and PD-L1 status. Patient return to clinic after MRI scan of the head and CT PET scan.With CBC and CMP Signed By: Claudia Segura M.D. <<Signature on File>>
== END 2021-07-05 13:32 | disposition home or self-care (01) ==
PROVIDERS: PCP Family Medicine; Visit Provider Internal Medicine Hematology & Oncology
DX: C34.02 Malignant neoplasm of left main bronchus (principal); J38.3 Other diseases of vocal cords; E11.9 Type 2 diabetes mellitus without complications; K21.9 Gastro-esophageal reflux disease without esophagitis; F41.9 Anxiety disorder, unspecified; I10 Essential (primary) hypertension; J44.9 Chronic obstructive pulmonary disease, unspecified; E78.5 Hyperlipidemia, unspecified; Z79.899 Other long term (current) drug therapy; Z87.891 Personal history of nicotine dependence
CPT/HCPCS: 99205

== ENCOUNTER 2021-07-09 16:26 | Inpatient (IN) | payer BC, SELFPAY ==
[2021-07-09 16:32] VITALS: BP 121/65; PULSE 62; RESP 18; TEMP 36.7; O2SAT 96
--- NOTE | 2021-07-09 16:51 | XRR_ITS ---
PROCEDURE INFORMATION: Exam: XR Chest Exam date and time: 07/09/2021 4:51 PM Age: 66 years old Clinical indication: Sternal or substernal pain; Patient HX: Afib, chest pain, SOB TECHNIQUE: Imaging protocol: XR of the chest. Views: 1 view. COMPARISON: CR XR chest 1V portable [id number] 06/19/2021 12:55 PM FINDINGS: Lungs: There is dense opacity in the mid to lower left lung. There is focal consolidation in the lateral right lower lung. Pleural spaces: No pneumothorax. Heart/Mediastinum: The cardiac silhouette is largely obscured. Bones/joints: Bones are unremarkable. XR/XR chest 1V portable [id number] IMPRESSION: Dense opacity in the left mid to lower lung. Possible pulmonary consolidation and/or pleural fluid. Radiation Dose CTDIVOL = (mGy): DLP = (mGy-cm)
--- NOTE | 2021-07-09 16:51 | ECG_ITS ---
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 Measurements Intervals [place] Rate: 62 P: 14 ND: 178 QRS: 43 QRSD: 85 T: 226 QT: 423 QTc: 430 Interpretive Statements SINUS RHYTHM LOW QRS VOLTAGE IN PRECORDIAL LEADS [QRS DEFLECTION < 1.0 mV IN CHEST LEADS] MODERATE T-WAVE ABNORMALITY, CONSIDER LATERAL ISCHEMIA [-0.1+ mV T-WAVE IN I/aVL/V5/V6] MODERATE T-WAVE ABNORMALITY, CONSIDER INFERIOR ISCHEMIA [-0.1+ mV T-WAVE IN II/aVF] INTERPRETATION BASED ON A DEFAULT AGE OF 40 YEARS Compared to ECG 06/19/2021 16:30:48 Low QRS voltage now present Possible ischemia now present Atrial fibrillation no longer present T-wave abnormality still present Electronically Signed On 07-09-2021 23:09:36 CDT by Harvey Arnold M.D. [id number]
--- NOTE | 2021-07-09 17:14 | W.ED.CHESTPA ---
Documented by User: Cj Polk DO 07/14/21 15:16 HPI - Chest Pain General: Chief Complaint: Chest Pain Stated Complaint: BRADYCARDIA Time Seen by Provider: 07/09/21 16:34 History of Present Illness: HPI narrative: 66-year-old female presents emergency room complaining of bradycardia. She also complained of some chest pain. Patient has had a Holter monitor there is a inordinate amount of reports and they will look to be unique. There is one and so there is nonsustained V. tach although I do not appreciate that on the monitoring strip. Today she states she was feeling lightheaded dizzy and had chest pain but recorded her heart rate in the 30s although at 60 at the time I seen her. She is on diltiazem 60 mg twice a day amiodarone 400 mg 3 times daily entheses this was a recent increase) and metoprolol 100 twice daily. Patient had the episode today while she was at rest she did not take anything to relieve it other than Tylenol and it resolved spontaneously. MD complaint: chest pain Pertinent past history: coronary artery disease Onset (ago): minute(s) Timing of current episode: episodic Prior episodes: Yes Onset: during rest Pain location: substernal Pain radiation: none Severity: mild Quality: tightness, aching and heaviness Relieving factors: nothing Exacerbating factors: nothing Associated symptoms: Deny abdominal pain, diaphoresis, dyspnea, fever(s), leg edema, nausea, palpitations, sense of impending doom, syncope or vomiting Treatment prior to arrival: none Review of Systems Const: Denies: fever(s) or diaphoresis ENMT: Denies: throat pain, ear or mastoid pain, nasal discharge or nasal congestion Card: Denies: palpitations or syncope Resp: Denies: dyspnea GI: Denies: abdominal pain, nausea or vomiting : Denies: flank pain, difficulty voiding, dysuria, urinary frequency or urinary urgency Skin/Breast: Denies: rash or pruritus PFSH ED PFSH: Medical History Anxiety Atrial fibrillation COPD (chronic obstructive pulmonary disease) Diabetes GERD (gastroesophageal reflux disease) Goiter Hyperlipidemia Hypertension Mass of lung Sinusitis Tenosynovitis of left foot Surgical History History of cholecystectomy History of hysterectomy Family History Other Cancer Social History Quit status (tobacco): has quit using tobacco Year quit tobacco: 2015 Former quit date comment: Hx of 1 PPD x 45 Years Second hand smoke exposure: No Smoking risk assessment/counseling performed?: No Alcohol intake: never Counseling given: No Counseling given: No Lives independently: Yes Household members: spouse Marital status: Current occupational status: retired History of recent travel: No Current gender identity: Female Physical Exam Const: COMMON NORMALS: no acute distress GENERAL APPEARANCE: cooperative and comfortable ORIENTATION/CONSCIOUSNESS: Yes awake, Yes oriented to person, Yes oriented to place and Yes oriented to time HENMT: COMMON NORMALS: normocephalic, atraumatic and hearing grossly normal bilaterally HEAD & SCALP: normocephalic and atraumatic Neck/C-Spine: COMMON NORMALS: no JVD Resp: AUSCULTATION: crackles and diminished lung sounds on the left in the lower lung ware Cardio: COMMON NORMALS: no JVD and No murmurs present (Cardio) RATE: bradycardic RHYTHM: abnormal rhythm irregularly irregular GI: COMMON NORMALS: Soft to palpation and No hepatosplenomegaly present AUSCULTATION: Yes normoactive bowel sounds PALPATION: Yes Soft to palpation, No Tenderness to palpation present (GI), No Guarding due to palpation present (GI) and Yes No hepatosplenomegaly present Extremity: COMMON NORMALS: normal to inspection, capillary refill normal, no clubbing, cyanosis or edema and no calf tenderness GENERAL: Yes edema (+4) Neuro: SENSORIUM/ORIENTATION: Yes oriented to person, Yes oriented to place and Yes oriented to time Skin: COMMON NORMALS: no rashes or lesions noted GENERAL SKIN EXAM: no rashes or lesions noted Course Vital Signs: Vital signs: Vital Signs Temperature 97.8 F 07/13/21 18:43 Pulse Rate 114 H 07/14/21 10:58 Respiratory Rate 26 H 07/14/21 10:56 Blood Pressure 134/106 07/14/21 04:01 Pulse Oximetry 96 07/14/21 10:56 MDM - Chest Pain MDM Narrative: Medical decision making narrative: Care turned over to Dr. Valladares at change of see his notes for final diagnosis and disposition Lab Data: Labs: Lab Results 07/09/21 07/09/21 07/09/21 17:40 17:40 17:40 WBC 17.5 10^3/uL H 10 ^3/uL (4.0-10.0) RBC 3.37 10^6/uL L 10 ^6/uL (4.1-5.3) Hgb 9.7 g/dL L g/dL (11.5-15.3) Hct 32.0 % L % (37.0-47.0) MCV 95.0 fl fl (81-99) MCH 28.8 pg pg (28.0-34.0) MCHC 30.3 g/dL g/dL (30.0-36.0) RDW 14.1 % % (12.1-15.1) Plt Count 254 10^3/cmm 10^3 /cmm (130-400) MPV 10.4 fL fL (7.4-10.4) Neut % (Auto) 84.0 % % Lymph % (Auto) 8.3 % % [place] % (Auto) 6.5 % % Eos % (Auto) 0.0 % % Baso % (Auto) 0.1 % % Neut # (Auto) 14.70 10^3/uL H 1 0^3/uL (1.8-7.7) Lymph # (Auto) 1.5 10^3/uL 10^3/ uL (0.8-4.8) [place] # (Auto) 1.1 10^3/uL H 10^ 3/uL (0.2-0.9) Eos # (Auto) 0.0 10^3/uL 10^3/ uL (0.0-0.8) Baso # (Auto) 0.0 10^3/uL 10^3/ uL (0.0-0.1) Nucleated RBC % (a uto) 0 % % Nucleated RBCs # 0.0 /100WBC /100W BC Sodium 140 mmol/L mmol/L (136-145) Potassium 5.4 mmol/L H mmol /L (3.5-5.1) Chloride 101 mmol/L mmol/L (98-107) Carbon Dioxide 24 mmol/L mmol/L (22-29) Anion Gap 20.4 H (5-19) BUN 56 mg/dL H mg/dL (8-23) Creatinine 1.1 mg/dL H mg/dL (0.5-0.9) GFR Calculation 50.0 mL/min L mL/ min (90-130) Glucose 110 mg/dL mg/dL (65-115) Calculated Osmolal ity 306 mOsm/kg H mOs m/kg (285-295) Calcium 9.0 mg/dL mg/dL (8.5-10.5) Total Bilirubin 0.2 mg/dL mg/dL (0.15-1.2) AST 12 U/L U/L (0-32) ALT 17 U/L U/L (0-33) Alkaline Phosphata se 152 IU/L H IU/L (35-105) Troponin T Baselin e 18 ng/L H ng/L (0-10) Troponin T 120 Min [place] Troponin T NT-Pro-B Natriuret Pep Total Protein 6.1 g/dL L g/dL (6.6-8.7) Albumin 3.1 g/dL L g/dL (3.5-5.2) Globulin 3.0 g/dL g/dL (1.3-4.6) Procalcitonin TSH 07/09/21 07/09/21 07/09/21 17:40 19:30 19:30 WBC RBC Hgb Hct MCV MCH MCHC RDW Plt Count MPV Neut % (Auto) Lymph % (Auto) [place] % (Auto) Eos % (Auto) Baso % (Auto) Neut # (Auto) Lymph # (Auto) [place] # (Auto) Eos # (Auto) Baso # (Auto) Nucleated RBC % (a uto) Nucleated RBCs # Sodium Potassium Chloride Carbon Dioxide Anion Gap BUN Creatinine GFR Calculation Glucose Calculated Osmolal ity Calcium Total Bilirubin AST ALT Alkaline Phosphata se Troponin T Baselin e Troponin T 120 Min [place] 15.85 ng/L H ng/L (0-10) [place] Troponin T -2.15 ABS# L ABS# (0-10) NT-Pro-B Natriuret Pep 4368 pg/mL H pg/m L (0-125) Total Protein Albumin Globulin Procalcitonin 0.19 ng/mL ng/mL (0-0.5) TSH 07/09/21 19:30 WBC RBC Hgb Hct MCV MCH MCHC RDW Plt Count MPV Neut % (Auto) Lymph % (Auto) [place] % (Auto) Eos % (Auto) Baso % (Auto) Neut # (Auto) Lymph # (Auto) [place] # (Auto) Eos # (Auto) Baso # (Auto) Nucleated RBC % (a uto) Nucleated RBCs # Sodium Potassium Chloride Carbon Dioxide Anion Gap BUN Creatinine GFR Calculation Glucose Calculated Osmolal ity Calcium Total Bilirubin AST ALT Alkaline Phosphata se Troponin T Baselin e Troponin T 120 Min [place] Troponin T NT-Pro-B Natriuret Pep Total Protein Albumin Globulin Procalcitonin TSH 0.82 uIU/mL uIU/m L (0.27-4.20) Discharge Plan Discharge Patient Disposition: Admitted As Inpatient Admit Provider: Vimal Lockwood Clinical Impression: Chest pain, Congestive heart failure, Pleural effusion Condition: Stable Coding Level of Care Code ED Senior Solutions Consultant for Chg Fwd Exam Comprehensive Documented by User: Reagan Valladares MD 07/09/21 19:34 HPI - Chest Pain General: Chief Complaint: Chest Pain Stated Complaint: BRADYCARDIA Time Seen by Provider: 07/09/21 16:34 PFSH ED PFSH: Medical History Anxiety Atrial fibrillation COPD (chronic obstructive pulmonary disease) Diabetes GERD (gastroesophageal reflux disease) Goiter Hyperlipidemia Hypertension Mass of lung Sinusitis Tenosynovitis of left foot Surgical History History of cholecystectomy History of hysterectomy Family History Other Cancer Social History Quit status (tobacco): has quit using tobacco Year quit tobacco: 2016 Former quit date comment: Hx of 1 PPD x 45 Years Second hand smoke exposure: No Smoking risk assessment/counseling performed?: No Alcohol intake: never Counseling given: No Counseling given: No Lives independently: Yes Household members: spouse Marital status: Current occupational status: retired History of recent travel: No Current gender identity: Female Course Vital Signs: Vital signs: Vital Signs Temperature 97.8 F 07/13/21 18:43 Pulse Rate 114 H 07/14/21 10:58 Respiratory Rate 26 H 07/14/21 10:56 Blood Pressure 134/106 07/14/21 04:01 Pulse Oximetry 96 07/14/21 10:56 MDM - Chest Pain MDM Narrative: Medical decision making narrative: Patient presents here with chest pain along with episodes of bradycardia she is also found to have a pleural effusion versus pneumonia, congestive heart failure. Patient started on IV antibiotics along with Lasix and I spoke to the hospitalist and will admit. Patient's been stable in the ER. Lab Data: Labs: Lab Results 07/09/21 07/09/21 07/09/21 17:40 17:40 17:40 WBC 17.5 10^3/uL H 10 ^3/uL (4.0-10.0) RBC 3.37 10^6/uL L 10 ^6/uL (4.1-5.3) Hgb 9.7 g/dL L g/dL (11.5-15.3) Hct 32.0 % L % (37.0-47.0) MCV 95.0 fl fl (81-99) MCH 28.8 pg pg (28.0-34.0) MCHC 30.3 g/dL g/dL (30.0-36.0) RDW 14.1 % % (12.1-15.1) Plt Count 254 10^3/cmm 10^3 /cmm (130-400) MPV 10.4 fL fL (7.4-10.4) Neut % (Auto) 84.0 % % Lymph % (Auto) 8.3 % % [place] % (Auto) 6.5 % % Eos % (Auto) 0.0 % % Baso % (Auto) 0.1 % % Neut # (Auto) 14.70 10^3/uL H 1 0^3/uL (1.8-7.7) Lymph # (Auto) 1.5 10^3/uL 10^3/ uL (0.8-4.8) [place] # (Auto) 1.1 10^3/uL H 10^ 3/uL (0.2-0.9) Eos # (Auto) 0.0 10^3/uL 10^3/ uL (0.0-0.8) Baso # (Auto) 0.0 10^3/uL 10^3/ uL (0.0-0.1) Nucleated RBC % (a uto) 0 % % Nucleated RBCs # 0.0 /100WBC /100W BC Sodium 140 mmol/L mmol/L (136-145) Potassium 5.4 mmol/L H mmol /L (3.5-5.1) Chloride 101 mmol/L mmol/L (98-107) Carbon Dioxide 24 mmol/L mmol/L (22-29) Anion Gap 20.4 H (5-19) BUN 56 mg/dL H mg/dL (8-23) Creatinine 1.1 mg/dL H mg/dL (0.5-0.9) GFR Calculation 50.0 mL/min L mL/ min (90-130) Glucose 110 mg/dL mg/dL (65-115) Calculated Osmolal ity 306 mOsm/kg H mOs m/kg (285-295) Calcium 9.0 mg/dL mg/dL (8.5-10.5) Total Bilirubin 0.2 mg/dL mg/dL (0.15-1.2) AST 12 U/L U/L (0-32) ALT 17 U/L U/L (0-33) Alkaline Phosphata se 152 IU/L H IU/L (35-105) Troponin T Baselin e 18 ng/L H ng/L (0-10) Troponin T 120 Min [place] Troponin T NT-Pro-B Natriuret Pep Total Protein 6.1 g/dL L g/dL (6.6-8.7) Albumin 3.1 g/dL L g/dL (3.5-5.2) Globulin 3.0 g/dL g/dL (1.3-4.6) Procalcitonin TSH 07/09/21 07/09/21 07/09/21 17:40 19:30 19:30 WBC RBC Hgb Hct MCV MCH MCHC RDW Plt Count MPV Neut % (Auto) Lymph % (Auto) [place] % (Auto) Eos % (Auto) Baso % (Auto) Neut # (Auto) Lymph # (Auto) [place] # (Auto) Eos # (Auto) Baso # (Auto) Nucleated RBC % (a uto) Nucleated RBCs # Sodium Potassium Chloride Carbon Dioxide Anion Gap BUN Creatinine GFR Calculation Glucose Calculated Osmolal ity Calcium Total Bilirubin AST ALT Alkaline Phosphata se Troponin T Baselin e Troponin T 120 Min [place] 15.85 ng/L H ng/L (0-10) [place] Troponin T -2.15 ABS# L ABS# (0-10) NT-Pro-B Natriuret Pep 4368 pg/mL H pg/m L (0-125) Total Protein Albumin Globulin Procalcitonin 0.19 ng/mL ng/mL (0-0.5) TSH 07/09/21 19:30 WBC RBC Hgb Hct MCV MCH MCHC RDW Plt Count MPV Neut % (Auto) Lymph % (Auto) [place] % (Auto) Eos % (Auto) Baso % (Auto) Neut # (Auto) Lymph # (Auto) [place] # (Auto) Eos # (Auto) Baso # (Auto) Nucleated RBC % (a uto) Nucleated RBCs # Sodium Potassium Chloride Carbon Dioxide Anion Gap BUN Creatinine GFR Calculation Glucose Calculated Osmolal ity Calcium Total Bilirubin AST ALT Alkaline Phosphata se Troponin T Baselin e Troponin T 120 Min [place] Troponin T NT-Pro-B Natriuret Pep Total Protein Albumin Globulin Procalcitonin TSH 0.82 uIU/mL uIU/m L (0.27-4.20) Discharge Plan Discharge Patient Disposition: Admitted As Inpatient Admit Provider: Vimal Lockwood Clinical Impression: Chest pain, Congestive heart failure, Pleural effusion Condition: Stable Coding Level of Care Code ED Senior Solutions Consultant for Chg Fwd Exam Comprehensive
[2021-07-09] MEDS: aspirin 81 mg Chew Tablet 324 MG PO (17:25)
--- NOTE | 2021-07-09 17:29 | PC.NURSE ---
Obese, has lower leg swelling. Hx of recent illness. Unable to get IV access, multiple attempts without success.
[2021-07-09 18:01] LABS: Basophils % 0.1 %; Hemoglobin 9.7 g/dL (11.5-15.3); Lymphocytes # 1.5 10^3/uL (0.8-4.8); Lymphocytes % 8.3 %; Mean Corpuscular HGB Conc 30.3 g/dL (30.0-36.0); Mean Corpuscular Hemoglobin 28.8 pg (28.0-34.0); Mean Platelet Volume 10.4 fL (7.4-10.4); Monocytes # 1.1 10^3/uL (0.2-0.9); Monocytes % 6.5 %; Nucleated Red Blood Cells % 0 %; Platelet Count 254 10^3/cmm (130-400); Red Blood Count 3.37 10^6/uL (4.1-5.3); Red Cell Distribution Width 14.1 % (12.1-15.1); White Blood Count 17.5 10^3/uL (4.0-10.0)
[2021-07-09 18:24] LABS: Alanine Aminotransferase 17 U/L (0-33); Albumin Level 3.1 g/dL (3.5-5.2); Alkaline Phosphatase 152 IU/L (35-105); Anion Gap 20.4 (5-19); Aspartate Amino Transferase 12 U/L (0-32); Blood Urea Nitrogen 56 mg/dL (8-23); Carbon Dioxide 24 mmol/L (22-29); Chloride 101 mmol/L (98-107); Glucose 110 mg/dL (65-115); Osmolality Calculated 306 mOsm/kg (285-295); Potassium 5.4 mmol/L (3.5-5.1); Sodium 140 mmol/L (136-145); Total Bilirubin 0.2 mg/dL (0.15-1.2); Total Protein 6.1 g/dL (6.6-8.7)
[2021-07-09 18:30] LABS: Troponin(5th) Baseline 18 ng/L (0-10)
--- NOTE | 2021-07-09 18:51 | ECG_ITS ---
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 Measurements Intervals [place] Rate: 63 P: 68 DC: 199 QRS: 56 QRSD: 83 T: 234 QT: 433 QTc: 446 Interpretive Statements SINUS RHYTHM ST DEVIATION AND MARKED T-WAVE ABNORMALITY, CONSIDER ANTEROLATERAL ISCHEMIA [-0.5+ mV T-WAVE IN I/aVL/V3-V6] ST DEVIATION AND MODERATE T-WAVE ABNORMALITY, CONSIDER INFERIOR ISCHEMIA [-0.1+ mV T-WAVE IN II/aVF] Compared to ECG 07/09/2021 17:11:13 No significant changes Electronically Signed On 07-09-2021 23:10:06 CDT by Harvey Arnold M.D. [id number]"
[2021-07-09 18:58] VITALS: BP 109/62; PULSE 64; RESP 20; O2SAT 95
[2021-07-09] MEDS: FUROsemide 10 mg/mL SDV 10mL 60 MG IVP (19:14)
[2021-07-09 19:17] LABS: NT Pro B Type Natriuretic Pept 4368 pg/mL (0-125)
[2021-07-09] MEDS: piperacillin-tazobactam 3.375 GM in sodium chloride 0.9% (plus) 50 ML IV (19:18)
[2021-07-09] MEDS: vancomycin 1,000 MG in sodium chloride 0.9% 250 ML 250 MG IV (19:18)
--- NOTE | 2021-07-09 19:27 | P.HP_ITS ---
Providers/Chief Complaint Primary Care Provider: sIabella Perez MD Chief Complaint: BRADYCARDIA History of Present Illness Carolann Murguia is a 66 year old female who has history of adenocarcinoma of lung which was diagnosed when she had left-sided chest pain abnormal chest x-ray showed 5.5 cm mass around in March, PET scan confirmed hypermetabolic mass in left hilum status post bronchoscopy June 15, before bronchoscopy she went into A. fib RVR and received Cardizem which made her hypotensive and then she was transferred to the [facility] the ER where she was given amiodarone and metoprolol, history of smoking, history of GERD, COPD, she is due for MRI scan of the head and another CT PET scan to rule out metastatic lesions and staging. She has recent diagnosis of atrial fibrillation gets recurrent episode of left- sided chest discomfort which is reproducible. She follows up with Dr. Cruz, on 06/28 saw Perlita Gonsales, Lasix dose was increased to 40 mg Diltiazem was added on top of amiodarone and metoprolol, she also had Holter monitoring reading done recently. Today she is presenting with chief complaint of dizziness, presyncope and reproducible left-sided chest pain. Patient is stating that since optimization of her rate controlling medications she has never felt better, for last 2 to 3 weeks she has been feeling extremely tired and fatigued, also experiencing episodes of vomiting sometimes at nighttime, she does have history of acid reflux. In last 1 to 2 weeks she has gained 10 to 15 pounds as well. She is experiencing orthopnea and PND. Today she was about to have her lunch when she started experiencing lightheadedness, which are associated with left-sided pressure-like sensation radiating towards her left shoulder and neck, her checked her pulse at that time her blood pressure was low and heart rate was 35. EMS was called In the ER her heart rate was above 60s, blood pressure at the time of my evaluation 124/78, patient had no active chest pain, she was awake and alert saturating well on 2 L nasal cannula, at the bedside She had reproducible left-sided chest pain EKG is not showing any ischemic or infarctive changes Troponin not significant She was given broad-spectrum antibiotics for concern of left-sided pneumonia I have requested CT chest to delineate further, she has leukocytosis, hyperkalemia and HARRIS Review of Systems Const: Reports: chills, body aches and fatigue Eyes: Denies: change in vision ENMT: Denies: throat pain Card: Reports: chest pain, palpitations, irregular heart rhythm, pre-syncope, dyspnea on exertion and orthopnea Resp: Reports: dyspnea GI: Denies: abdominal pain : Denies: flank pain Musc: Denies: neck pain Skin/Breast: Reports: lesions Neuro: Denies: headache(s) Psych: Reports: anxiety Endo: Denies: polyuria [place]/Lymph: Denies: easy bruising All/Imm: Denies: urticaria Medications/Allergies Home Medications Medication Instructions Recorded Confirmed Last Taken Type olmesartan 20 mg tablet 20 mg PO DAILY #30 tab 05/31/21 06/28/21 06/19/21 Rx Dexilant 60 mg PO DAILY 06/12/21 06/28/21 06/19/21 History Victoza 3-Etienne 1.8 mg SUBCUT DAILY 06/12/21 06/28/21 06/19/21 History metformin 1,000 mg PO BID 06/12/21 06/28/21 06/19/21 History paroxetine HCl 20 mg PO DAILY 06/12/21 06/28/21 06/19/21 History rosuvastatin 10 mg PO DAILY 06/12/21 06/28/21 06/18/21 History sucralfate 1 g PO QID 06/12/21 06/28/21 06/19/21 History nystatin 100,000 unit/mL oral 5 ml PO QID #200 ml 06/14/21 06/28/21 06/19/21 Rx suspension tizanidine 4 mg PO BEDTIME PRN 06/19/21 06/28/21 Unknown History buspirone 10 mg PO TID 30 Days #90 tab 06/22/21 06/28/21 Unknown Rx ferrous gluconate 324 mg PO BIDWM 30 Days #60 tab 06/22/21 06/28/21 Unknown Rx potassium chloride 10 meq PO DAILY #14 cap 06/22/21 06/28/21 Unknown Rx tiotropium bromide [Spiriva with 1 cap INHALATION DAILY #30 inh 06/22/21 06/28/21 Unknown Rx HandiHaler] metoprolol tartrate 100 mg tablet 100 mg PO BID #60 tab 06/26/21 06/28/21 Unknown Rx WHEELCHAIR #1 ea 06/27/21 06/28/21 Unknown Rx furosemide 40 mg tablet 40 mg PO DAILY #30 tab 06/27/21 06/28/21 Unknown Rx trazodone 100 mg tablet 100 mg PO .qhs #30 tab 06/27/21 06/28/21 Unknown Rx amiodarone 200 mg tablet 400 mg PO TID tab 06/28/21 06/28/21 Unknown History diltiazem HCl 60 mg 60 mg PO BID #60 cap 06/28/21 06/28/21 Unknown Rx capsule,extended release 12 hr ondansetron HCl 8 mg tablet 8 mg PO Q8H PRN #20 tab 06/28/21 Unknown Rx apixaban 5 mg tablet 5 mg PO BID #60 tab 07/09/21 Unknown Rx Allergies Allergy/AdvReac Type Severity Reaction Status Date / Time cefdinir AdvReac stomach Verified 07/09/21 16:47 problems PFSH Acute PFSH: Medical History Anxiety Atrial fibrillation COPD (chronic obstructive pulmonary disease) Diabetes GERD (gastroesophageal reflux disease) Goiter Hyperlipidemia Hypertension Mass of lung Sinusitis Tenosynovitis of left foot Surgical History History of cholecystectomy History of hysterectomy Family History Other Cancer Social History Quit status (tobacco): has quit using tobacco Year quit tobacco: 2015 Former quit date comment: Hx of 1 PPD x 45 Years Second hand smoke exposure: No Smoking risk assessment/counseling performed?: No Alcohol intake: never Counseling given: No Counseling given: No Lives independently: Yes Household members: spouse Marital status: Current occupational status: retired History of recent travel: No Current gender identity: Female Vitals/I&O/Wt Last Vital Signs Temp 98.0 F 07/09/21 16:32 Pulse 64 07/09/21 18:58 Resp 20 H 07/09/21 18:58 BP 109/62 07/09/21 18:58 Pulse Ox 95 07/09/21 18:58 Physical Exam Narrative: EXAM NARRATIVE: female, morbidly obese Clinical signs of fluid overload Variable S1-S2 Heart rate 64 Abdomen soft nontender bowel sounds present Bilateral lower extremity edema Bilateral breath sounds with rhonchi at the bases No active wheezing Awake alert oriented x3 GCS 15 EOMI, PERRLA Reproducible left-sided chest pain Data : 07/09/21 17:40 07/09/21 17:40 A&P Assessment and plan (1) Chest pain: Status: Acute (2) Diastolic heart failure: Status: Acute (3) Edema: Status: Acute (4) Pleural effusion: Status: Acute (5) Hyperkalemia: Status: Acute (6) HARRIS (acute kidney injury): Status: Acute (7) Bradycardia: Status: Acute Additional A&P Information Symptomatic bradycardia On EKG rhythm is sinus she is not in A. fib anymore Likely medication induced I will discontinue metoprolol and Cardizem, reduce the dose of amiodarone to 200 mg and continue for rate and rhythm control Currently her heart rate is 64 systolic blood pressure 124 mmHg if she is asymptomatic at this point Normal AST, ALT no vision changes, I do not think she has amiodarone toxicity at this point Monitor with telemetry on cardiac floor Troponin with negative delta EKG showing T wave inversion V3 to V6, reproducible chest pain, please consider cardiology consult if there is any wall motion abnormality evident on echo Preserved ejection fraction heart failure acute exacerbation Has gained 15 pounds in last 1 week, clinical signs of fluid overload We will start her on Bumex 1 mg for now if her blood pressure allows can escalate to 2 mg PO daily Repeat echo in the morning Check TSH Worsening pleural effusion Rule out pneumonia will request CT chest, she also received antibiotics in the ER, check procalcitonin, her lung mass left perihilar, HARRIS with hyperkalemia Likely drug-related hold losartan and potassium supplementation Anticipate improvement with diuresis adenocarcinoma of lung Local disease, pending MRI head and PET scan for staging and metastatic status rule out Pending appointment with ENT, radiologist, Port-A-Cath placement Has history of left-sided recurrent chest pain Full code Cardiac diet DVT prophylaxis she is currently on Eliquis Attestations Medical Necessity Statement*: Anticipating stay in the hospital cross more than 2 midnight Time Spent in Patient Care: Greater than 35 minutes Coding Level of Care Code Acute Galvanometer Assembler for Chg Fwd Diagnoses Chest pain R07.9 Diastolic heart failure I50.30 Edema R60.9 Pleural effusion J90 Hyperkalemia E87.5 HARRIS (acute kidney injury) N17.9 Bradycardia R00.1
--- NOTE | 2021-07-09 19:33 | CTR_ITS ---
PROCEDURE INFORMATION: Exam: CT Chest Without Contrast; Diagnostic Exam date and time: 07/09/2021 7:33 PM Age: 66 years old Clinical indication: Shortness of breath; Additional info: Hypoxia TECHNIQUE: Imaging protocol: Diagnostic computed tomography of the chest without contrast. Radiation optimization: All CT scans at this facility use at least one of these dose optimization techniques: automated exposure control; mA and/or kV adjustment per patient size (includes targeted exams where dose is matched to clinical indication); or iterative reconstruction. COMPARISON: CT angio chest PE protcl [id number] 04/22/2021 1:54 PM RADIATION DOSE METRICS: Total DLP (mGy-cm): 902.41 FINDINGS: Lungs: There is an infrahilar pulmonary mass on the left with indistinct margins due to adjacent lower lung consolidation/atelectasis. The lesion measures roughly 5 cm diameter but the margins are very difficult to visualize due to surrounding consolidation which prevents accurate measurement. The mass is similar that seen on 04/22/2021. There is subpleural opacity in the posteroinferior left upper lobe. There is opacification of the lingula and basal segments of the left lower lobe. There is a 4 mm nodule in the right upper lobe on axial series 2, image 27. There is trace atelectasis in the dependent portion of the right lower lobe. Pleural spaces: New moderate size left pleural effusion. Heart: There is moderate diffuse irregular thickening of the pericardium. Heart size is normal. Aorta: There is mild aortic atherosclerotic disease. Other arteries: There is moderate coronary artery calcification. Lymph nodes: No discrete mediastinal or hilar lymph node enlargement. There is confluent soft tissue density in the left hilum surrounding left distal main and lower/middle lobe bronchi. Bones/joints: Unremarkable. No acute fracture. Soft tissues: The extrathoracic soft tissues are unremarkable. CT/CT chest wo con [id number] IMPRESSION: 1. Left infrahilar pulmonary mass associated with consolidation and/or atelectasis in the left lower lobe and lingula in addition to a new left pleural effusion. Findings are consistent with a malignant neoplasm which is grossly stable in size since 04/22/2021 although direct comparison is difficult. New consolidation in the left lower lung may be due to postobstructive pneumonia, lymphangitic carcinomatosis and/or atelectasis. 2. Diffuse irregular pericardial thickening. This finding is new since 04/22/2021. Possible pericardial malignancy. 3. Tiny right upper lobe pulmonary nodule. Significance is uncertain. Radiation Dose CTDIVOL = (mGy): DLP = 902.41 (mGy-cm)
[2021-07-09 20:08] LABS: Troponin 5 2HR 15.85 ng/L (0-10)
[2021-07-09 20:10] LABS: Troponin 5 2HR Delta -2.15 ABS# (0-10)
[2021-07-09 20:21] LABS: Procalcitonin 0.19 ng/mL (0-0.5)
[2021-07-09 21:21] LABS: Thyroid Stimulating Hormone 0.82 uIU/mL (0.27-4.20)
[2021-07-09 21:31] VITALS: BP 100/51; PULSE 72; RESP 20; O2SAT 95
[2021-07-09 21:48] VITALS: BP 100/51; PULSE 72; RESP 20; TEMP 36.7; O2SAT 95
[2021-07-09 22:00] VITALS: PULSE 71
--- NOTE | 2021-07-09 22:40 | PC.PHAR ---
Vancomycin is dosed at 1gm IVPB every 12 hours to produce a predicted trough level of 15.01 (population based pharmaokinetic analysis). A trough level has been ordered from the lab to be obtained before the fourth dose to confirm and adjust if needed. The Zosyn is dosed at 3.375gm IVPB every 8 hours on the basis of the creatinine clearance if 73.1.
--- NOTE | 2021-07-09 22:51 | ECG_ITS ---
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 Measurements Intervals [place] Rate: 66 P: 62 NH: 189 QRS: 53 QRSD: 89 T: 209 QT: 445 QTc: 467 Interpretive Statements SINUS RHYTHM LOW QRS VOLTAGE IN PRECORDIAL LEADS [QRS DEFLECTION < 1.0 mV IN CHEST LEADS] MODERATE T-WAVE ABNORMALITY, CONSIDER ANTEROLATERAL ISCHEMIA [-0.1+ mV T-WAVE IN V3-V6] MODERATE T-WAVE ABNORMALITY, CONSIDER INFERIOR ISCHEMIA [-0.1+ mV T-WAVE IN II/aVF] Compared to ECG 07/09/2021 18:58:05 Low QRS voltage now present T-wave abnormality still present Possible ischemia still present Electronically Signed On 07-09-2021 23:09:55 CDT by Harvey Arnold M.D. [email or web address]
[2021-07-09 23:00] VITALS: PULSE 73; RESP 16; O2SAT 95
[2021-07-09 23:41] LABS: Troponin 5 6HR 15.33 ng/L (0-10)
[2021-07-09 23:45] LABS: Troponin 5 6HR Delta -2.67 ng/L (0-12)
[2021-07-10] VITALS (10 sets, daily range): BP systolic 94–145; BP diastolic 54–83; PULSE 78–117; RESP 17–30; TEMP 36.8–37.1; O2SAT 95–98
[2021-07-10] MEDS: piperacillin-tazobactam 3.375 GM in sodium chloride 0.9% (plus) 50 ML IV ×3 (02:48→20:21)
[2021-07-10 03:51] LABS: Basophils % 0.1 %; Eosinophils % 0.1 %; Hematocrit 32.5 % (37.0-47.0); Hemoglobin 9.4 g/dL (11.5-15.3); Lymphocytes # 1.9 10^3/uL (0.8-4.8); Lymphocytes % 10.8 %; Mean Corpuscular HGB Conc 28.9 g/dL (30.0-36.0); Mean Corpuscular Hemoglobin 28.2 pg (28.0-34.0); Mean Corpuscular Volume 97.6 fl (81-99); Mean Platelet Volume 11.2 fL (7.4-10.4); Monocytes # 1.3 10^3/uL (0.2-0.9); Monocytes % 7.3 %; Neutrophils # 13.99 10^3/uL (1.8-7.7); Neutrophils % 80.9 %; Nucleated Red Blood Cells % 0 %; Platelet Count 240 10^3/cmm (130-400); Red Blood Count 3.33 10^6/uL (4.1-5.3); Red Cell Distribution Width 14.2 % (12.1-15.1); White Blood Count 17.3 10^3/uL (4.0-10.0)
[2021-07-10 04:05] LABS: Blood Urea Nitrogen 60 mg/dL (8-23); C Reactive Protein 139.8 mg/L (0.0-4.9); Carbon Dioxide 22 mmol/L (22-29); Chloride 103 mmol/L (98-107); Glucose 98 mg/dL (65-115); Magnesium 1.5 mg/dL (1.7-2.3); Osmolality Calculated 305 mOsm/kg (285-295); Sodium 139 mmol/L (136-145)
[2021-07-10 04:07] LABS: Anion Gap 18.9 (5-19); Potassium 4.9 mmol/L (3.5-5.1)
[2021-07-10 04:11] LABS: Slide Review Slide Review Perform
[2021-07-10] MEDS: morphine 4 mg/mL SDV 1 mL 2 MG IVP (05:58)
[2021-07-10] MEDS: vancomycin 1,000 MG in sodium chloride 0.9% 250 ML 250 MG IV ×2 (06:00→18:33)
--- NOTE | 2021-07-10 06:11 | PC.NURSE ---
Patient arrived to unit at approx 2200 from ED. Patient was AOx4, in NSR, normotensive and afebrile. Patient on 2L NC sating above 94%, but noted to be very dyspneic on exertion and labored at rest. Bilat lower extremities noted to have pitting edema 3+ with blisters on top of feet. Patient denies pain. [place] able [place] [facility] [place] x1. At approx 0530 patient started complaining of chest pain. HR at 82, BP WNL, sating above 94%, with normal respirations. EKG ordered. Results were controlled afib. Dr. Lockwood notified. Orders for 2mg morphine IVP. No other orders at this time. Will continue to monitor.
--- NOTE | 2021-07-10 08:36 | PC.PHAR ---
pt states she takes care of her own medications-pt states she is still taking digoxin filled on 07/09/21 30d/s-pt states she still has a little nystatin left and uses prn rx filled on 06/14/21 10d/s-pt states she has been taking pacerone 400mg tid rx filled on 06/22/21 14d/s pt states she wants to dc this medication pt states she thinks she is on too much-pt states she has been out of her kcl for 5 days rx filled on 06/22/21 14d/s-pt states she is still using victoza 1.8mg daily ext med history shows last filled on 10/10/20 84d/s-notes are made in the pharmacy comments
[2021-07-10] MEDS: atorvastatin 40 mg Tablet PO (09:32)
[2021-07-10] MEDS: bumetanide 1 mg Tablet PO (09:32)
[2021-07-10] MEDS: amiodarone 200 mg Tablet PO (09:32)
[2021-07-10] MEDS: acetaminophen 325 mg Tablet 650 MG PO ×2 (09:33→20:20)
[2021-07-10] MEDS: apixaban 5 mg Tablet PO (09:33)
--- NOTE | 2021-07-10 10:36 | PC.CHAP ---
Pastoral Care Encounter/Spiritual Assessment Type of Contact [] Declined builder beam visit [] Patient/Family/Request visit [] Outpatient visit [] Follow-up visit [] Physician referral [] Code/Alert [x] Routine visit [] Staff referral [] Actively dying [] Patient sleeping [] Family support [] [] Out of room [] Palliative care [] [] Receiving care in room [] Pre-surgical visit [] Trauma [] Long length of stay [] ICU visit [] Other: Relational/Emotional Strength [] Patient feels connected with others/family/visitors/staff [] Distress [] Loneliness/isolation [] Abandonment Spirituality of Patient [x] Person of Tamera [] Attends Rastafari of their Tamera [x] Believes in Prayer [] Reads Bible or Scientologist materials [] There are Spiritual issues to be addressed Access Liaison Interventions [x] Prayer [] Active listening [] Non-anxious presence [] Spiritual/emotional support [] Crisis/trauma care [] Spiritual counseling [] Bereavement support [] Provided bereavement packet [] Provided Bible/devotional materials [] Provided toy/stuffed animal, coloring book to patient or family member [] Provided Communion [] Anointing/[place] [] Salvation [] Completed spiritual assessment [] Other: Impact on Illness or Injury [] Angry [] Fearful [] Anxious [] Often cries [] Exhaustion [] Unable to work [] Unable to attend religion [] Unable to walk/stand [] Unable to read [] Unable to drive [] Unable to eat/drink [] Unable to sleep [] Unable to be with family [] Patient intubated [] Other: Summary A confident good woman, patiently waiting to get well. Time spent with patient 2 minutes
[2021-07-10 11:32] LABS: Bilirubin Urine Neg (Negative); Blood Urine Trace (Negative); Glucose Urine UA Norm (Normal); Ketones Urine Negative (Negative); Leukocyte Esterase Urine Negative (Negative); Nitrate Urine Negative (Negative); Protein Urine Neg (Negative); RBC Urine 0-4 /hpf (0-2); Specific Gravity, Urine 1.015 (1.005-1.030); Urine Appearance Cloudy (CLEAR); Urine Color Yellow (Yellow); Urobilinogen Urine Norm (Negative); pH Urine 5 (5-7)
[2021-07-10 11:33] LABS: Add Urine Culture? No; Amorphous Sediment Urine 3+ /hpf; Bacteria Urine TRACE /hpf; Mucus Urine TRACE /hpf; Squamous Epithelial Cell Urine 0-4 /hpf (0-5)
--- NOTE | 2021-07-10 15:48 | P.PN_ITS ---
Subjective Subjective: Interval history: She has been bothered by chronic right neck pain. States could not get Tylenol overnight. Recently she has been very short of breath, dyspnea on exertion. Legs have been swelling bilaterally. Short of breath with laying flat. Coughing. Chest pressure which gets worse with inspiration. Vitals/I&O/Wt Last Vital Signs Temp 98.0 F 07/09/21 21:48 Pulse 78 07/10/21 05:19 Resp 16 07/09/21 23:00 BP 100/51 07/09/21 21:48 Pulse Ox 95 07/09/21 23:00 07/10/21 07/10/21 07/10/21 06:59 14:59 22:59 Intake Total 50 / 350 250 / 250 Output Total 700 / 700 Balance -650 / -350 250 / 250 Weight last 48 hrs Weight 132.449 kg Physical Exam Const: COMMON NORMALS: no acute distress and patient oriented x3 GENERAL APPEARANCE: frail appearing NUTRITIONAL APPEARANCE: obese morbidly obese OTHER: Polite, conversant. Sitting up in chair. HENMT: COMMON NORMALS: oropharynx normal Neck/C-Spine: OTHER: Unable to assess for JVD due to body habitus Resp: COMMON NORMALS: normal respiratory effort AUSCULTATION: diminished lung sounds Cardio: COMMON NORMALS: regular rhythm, S1 normal heart sound present, S2 normal heart sound present and No murmurs present (Cardio) RHYTHM: regular rhythm HEART SOUNDS: S1 normal heart sound present and S2 normal heart sound present GI: COMMON NORMALS: Normal to inspection, nondistended, normoactive bowel sounds present, Soft to palpation and non-tender PALPATION: Yes Soft to pal pation Extremity: COMMON NORMALS: no joint enlargement GENERAL: Yes edema Neuro: COMMON NORMALS: patient oriented x3 and moves all extremities Skin: COMMON NORMALS: no rashes or lesions noted GENERAL SKIN EXAM: no rashes or lesions noted Data : 07/10/21 03:15 07/10/21 03:15 Micro: Microbiology 07/09/21 23:20 MRSA Culture - Final Nose 07/09/21 23:20 Bacterial Antigens - Final Urine,Clean Catch 07/09/21 23:20 Legionella Urinary Antigen - Final Urine,Clean Catch 07/09/21 19:40 Blood Culture - Preliminary Blood SPECIMEN COLLECTED 07/09/21 19:55 Blood Culture - Preliminary Blood SPECIMEN COLLECTED A&P Assessment and plan (1) Postobstructive pneumonia: With adenocarcinoma of left lung, with consolidation, pleural effusion, with suspected postobstructive pneumonia. Discussed with her. Discussed with her oncologist. Continue with antibiotics at this time, however, due to postobstructive nature concern, discussed with her consideration of additional therapy which may include radiation or bronchial stenting. Worse hypoxia than usual, requiring 3-1/2 L oxygen this morning, usually on 2. At this time in addition to antibiotics will request chest PT, Mucinex in case of mucous plug, although this is not obviously visualized on CT, and with prior reported external bronchial compression during bronchoscopy at the time of taking of biopsy, concern is this may be due to tumor itself. Discussed condition, findings on imaging with her oncologist. As work-up is not complete, and may be affected by initiation of radiotherapy, recommendation currently is to obtain MRI brain to assess for possible metastatic disease there in which case if positive consideration may be given to proceeding with palliative radiation. Otherwise consideration may be given to whether bronchial stenting may be an option to allow completion of staging and then allow proceeding to chemoradiation. Status: Acute (2) Chest pain: Troponin with mild elevation, without peaking, not suggestive of acute NH. With CHF exacerbation, will assess limited TTE. Recent TTE with normal ejection fraction, moderately increased right ventricular size, moderately increased right atrial size, moderately thickened mitral valve, no MR. Continue aspirin, Eliquis. Add nitroglycerin as needed. Once oxygenation is doing somewhat better, consider additional risk stratification with stress testing. Status: Acute (3) Diastolic heart failure: Change Bumex to IV. Monitor I&O. Limited TTE as above. Status: Acute (4) Edema: Bilateral lower extremity 3+ edema. Secondary to CHF exacerbation as above. Status: Acute (5) Pleural effusion: In the setting of CHF exacerbation, but also pneumonia, currently started on treatment with IV Bumex, antibiotics. Is also on anticoagulation currently. If not improving consider thoracentesis, although anticoagulation will need to be held prior. So for now we will transition to Lovenox. Status: Acute (6) Hyperkalemia: Improved. Hold potassium supplement. Hold ARB. Low potassium diet. Status: Acute (7) HARRIS (acute kidney injury): Mild HARRIS, creatinine steady at 1.1. Monitor I&O, renal function. Check CK. Hold ARB. Status: Acute (8) Bradycardia: Amiodarone was continued. Cardizem held. Digoxin held. Check dig level. Monitor on telemetry. Follow-up limited TTE. TSH normal. Hyperkalemia improved. Cautious replacement of hypomagnesemia. Status: Acute Additional A&P Information Adenocarcinoma of lung: Staging in process, needs PET scan, MRI brain, port placement. Pending appointment with ENT for evaluation of incidental abnormality seen in left vocal cord, rad-onc, Port-A-Cath placement Has history of left-sided recurrent chest pain, chronic neck pain Attestations Medical Necessity Statement*: Continue admission for assessment management of pneumonia in the setting of adenocarcinoma of the lung, with suspected postobstructive pneumonia, CHF exacerbation, bradycardia. Coding Level of Care Code Acute Console Attendant for [facility] Fwd Diagnoses Postobstructive pneumonia J18.9 Chest pain R07.9 Diastolic heart failure I50.30 Edema R60.9 Pleural effusion J90 Hyperkalemia E87.5 HARRIS (acute kidney injury) N17.9 Bradycardia R00.1
[2021-07-10 17:04] LABS: Creatine Phosphokinase 21 U/L (26-192); Digoxin 1.1 ng/mL (0.6-1.2)
[2021-07-10] MEDS: sucralfate 1 gm Tablet PO ×2 (17:42→20:21)
--- NOTE | 2021-07-10 17:45 | PC.NURSE ---
Shift Note: Pt pleasant. She is in A-fib. Only one complaint about some chest discomfort this am. Acetaminophen admin., No further c/o. Pt remains on 2lpm/NC. She does have exertional shortness of breath. She is able to bear her own weight well during transfers. She sat up in a chair for most of the morning. She stated she does not like to take the amiodarone, it makes her feel funny. She was taking 400mg BID at home , today she had 200mg once, she stated she was willing to try that. Urine was very cloudy this am sent off for UA. Pt has been to [facility] several times today but no BM noted so far. Frequent safety and comfort rounds continue. Orders and/or nursing care completed as indicated. Patient monitored for response to intervention and treatment(s). Education provided includes MRI of head, Sucralfate, tylenol, Amiodarone, and Lasix. Patient and/or admissions representative verbalized understanding. Will continue to monitor.
--- NOTE | 2021-07-10 17:50 | PC.NURSE ---
Report faxed to [facility].. Report called amd given to JESICA Thomas.
--- NOTE | 2021-07-10 18:15 | PC.NURSE ---
Pt transferred to [facility] via W/C. She was assisted into bathroom there. Oriented to call light . Further updates given to JESICA Thomas. All belongings transferred with pt.
--- NOTE | 2021-07-10 18:37 | PC.NURSE ---
Report received from Ananya in ICU. Patient arrived to the floor at 1837. Pt oriented to room and call bledsoe use. Pt VS are stable and pt has call bledsoe in reach
[2021-07-10] MEDS: BuSPIRONE 10 mg Tablet PO (20:20)
[2021-07-10] MEDS: nitroglycerin 0.4 mg sublingual Tablet SUBLINGUAL (20:20)
[2021-07-10] MEDS: enoxaparin 100 mg/mL Syringe SUBCUT (20:21)
[2021-07-10] MEDS: trazodone 100 mg Tablet PO (20:21)
[2021-07-10] MEDS: enoxaparin 30 mg/0.3 mL Syringe SUBCUT (20:21)
[2021-07-10] MEDS: ipratropium-albuterol 3 mL Neb INHALATION (20:23)
[2021-07-10] MEDS: HYDROcodone-acetaminophen 5-325 mg Tablet 1 TAB PO (20:41)
--- NOTE | 2021-07-10 20:45 | PC.NURSE ---
Patient reporting difficulty breathing and associated chest pain with breathing 04/07. Dr Espinoza was notified and direction received. Doctor placed order for hydrocodone 5/325 every 4 hours. Patient describes breathing as a tightness and feel like she is not getting enough air. RT in and gave patient a breathing treatment which patient reports to have helped some. Instructed patient on pain medications and respiratory treatments. Patient verbalized understanding.
[2021-07-10] MEDS: lanolin oint 7 gm 1 APPLIC TOPICAL (23:56)
[2021-07-11] VITALS (14 sets, daily range): BP systolic 109–135; BP diastolic 64–88; PULSE 81–127; RESP 18–30; TEMP 36.7–36.8; O2SAT 95–99
--- NOTE | 2021-07-11 00:28 | PC.NURSE ---
Assisted patient up to [facility]. Patient feeling emotional in regards to current state of health. Weep and teary eyed. Attempted to provide some comfort. Provided snacks that patient reports she is able to keep down . Patient reporting significant decrease in appetite stating, I just don't feel like eating.
--- NOTE | 2021-07-11 00:47 | PC.NURSE ---
Patient is c/o sore mouth. She is afraid that she might be getting thrush again with all the antibiotics she is taking. I did not see anything but her lips are dry and bleeding. Informed Dr Aguilar and received verbal orders for lanolin ointment for her lips and oral nystatin as ordered. RBVO.
[2021-07-11] MEDS: piperacillin-tazobactam 3.375 GM in sodium chloride 0.9% (plus) 50 ML IV ×3 (02:11→21:39)
[2021-07-11] MEDS: HYDROcodone-acetaminophen 5-325 mg Tablet 1 TAB PO ×3 (02:11→21:36)
[2021-07-11] MEDS: PARoxetine 20 mg Tablet PO (05:43)
--- NOTE | 2021-07-11 05:56 | PC.NURSE ---
Shift Note Frequent safety and comfort rounds continue. Orders and/or nursing care completed as indicated. Patient monitored for response to intervention and treatment(s). Education provided includes zosyn, vancomycin, paxil and hydrocodone. Patient verbalized complete understanding. Will continue to monitor. Patient pain better controlled this morning. Reports breathing easier as well. Do distress obseved.
--- NOTE | 2021-07-11 06:00 | USCV_ITS ---
Carolann Murguia Age: 66 Gender: F : 1955 Exam Date: 07/11/2021 06:41 Ordering Phys: Ramon Espinoza MD Technologist: Exam Location: [facility] Indication: CHF BP: 118 / 73 HR: 106 Rhythm: Sinus Technical Quality: Very technically difficult study MEASUREMENTS (Male / Female) Normal Values 2D ECHO LVOT Diameter 1.8 cm LV Ejection Fraction MOD 2C 72.4 % LV Ejection Fraction 2C AL 72.7 % LA Diameter 3.3 cm FINDINGS Left Ventricle Normal left ventricular size and normal left ventricle systolic function. Left ventricular ejection fraction is estimated at 65-70 %. Although no diagnostic regional wall motion abnormality could be identified, this possibility cannot be completely excluded based on the study. Right Ventricle Right ventricle not well visualized. Probably normal right ventricular systolic function Right Atrium Right atrium not well visualized. Left Atrium Left atrium not well visualized. Mitral Valve Thickened mitral valve. Aortic Valve Aortic valve not well visualized. Tricuspid Valve Tricuspid valve not well visualized. Trace tricuspid valve regurgitation. Pulmonic Valve Pulmonic valve not well visualized. Pericardium Trivial pericardial effusion. There is likely pericardial thickening with echodense irregular pericardial deposits posteriorly, along LV apex as well as mid to apical portion of right ventricle anterioly. Aorta Normal-sized aortic root. CONCLUSIONS 1. This is a technically very difficult study with no parasternal windows. Patient declined echo contrast. 2. Normal left ventricular size and normal left ventricle systolic function. Left ventricular ejection fraction is estimated at 65-70 %. Although no diagnostic regional wall motion abnormality could be identified, this possibility cannot be completely excluded based on the study. 3. Probably normal right ventricular systolic function 4. Trivial pericardial effusion. There is likely pericardial thickening with echogenic irregular pericardial deposits posteriorly along LV apex as well mid to apical portion of right ventricle anterioly. Clinical correlation is advised. 5. There may have been increase in size of these echogenic deposits when compared to prior echo report dated 06/12/2021. Marlyn Tian MD (Electronically Signed) Final Date: 11 July 2021 13:01 Amended: 11 July 2021 14:14 C
[2021-07-11 06:38] LABS: Glucose Point of Care 199 mg/dL (70-110)
--- NOTE | 2021-07-11 06:58 | PC.NURSE ---
Lab unable to obtain labs this morning to include vanc trough. Dr Aguilar was notified. Also, Dc in pharmacy was notified. Received instructions from Dc to give scheduled morning dose of Vancomycin and to attempt vanc trough before PM dose at 1800. Order was placed for vanc trough as requested by pharmacy.
[2021-07-11] MEDS: vancomycin 1,000 MG in sodium chloride 0.9% 250 ML 250 MG IV ×2 (07:01→19:28)
[2021-07-11] MEDS: amiodarone 200 mg Tablet PO (08:03)
[2021-07-11] MEDS: BuSPIRONE 10 mg Tablet PO ×3 (08:03→21:36)
[2021-07-11] MEDS: nystatin 100,000 unit/mL UDC 5 mL 100000 UNIT PO ×4 (08:03→21:36)
[2021-07-11] MEDS: aspirin 325 mg Tablet PO (08:03)
[2021-07-11] MEDS: atorvastatin 40 mg Tablet PO (08:04)
[2021-07-11] MEDS: enoxaparin 30 mg/0.3 mL Syringe SUBCUT ×2 (08:04→21:40)
[2021-07-11] MEDS: enoxaparin 100 mg/mL Syringe SUBCUT ×2 (08:05→21:40)
[2021-07-11] MEDS: sucralfate 1 gm Tablet PO ×4 (08:05→21:36)
[2021-07-11] MEDS: bumetanide 0.25 mg/mL SDV 4 mL 1 MG IVP (08:58)
[2021-07-11] MEDS: ipratropium-albuterol 3 mL Neb INHALATION ×2 (08:58→15:23)
[2021-07-11 11:09] LABS: Basophils % 0.1 %; Eosinophils % 0.1 %; Hematocrit 31.2 % (37.0-47.0); Hemoglobin 9.2 g/dL (11.5-15.3); Lymphocytes # 1.4 10^3/uL (0.8-4.8); Lymphocytes % 8.8 %; Mean Corpuscular HGB Conc 29.5 g/dL (30.0-36.0); Mean Corpuscular Hemoglobin 28.7 pg (28.0-34.0); Mean Corpuscular Volume 97.2 fl (81-99); Mean Platelet Volume 10.8 fL (7.4-10.4); Monocytes # 1.1 10^3/uL (0.2-0.9); Monocytes % 6.6 %; Neutrophils # 13.33 10^3/uL (1.8-7.7); Nucleated Red Blood Cells % 0 %; Platelet Count 197 10^3/cmm (130-400); Red Blood Count 3.21 10^6/uL (4.1-5.3); Red Cell Distribution Width 14.4 % (12.1-15.1); White Blood Count 16.1 10^3/uL (4.0-10.0)
--- NOTE | 2021-07-11 11:43 | CT_ITS ---
WS: [id number] CT CHEST, ABDOMEN AND PELVIS WITH CONTRAST. HISTORY: Lung cancer, assess for metastatic disease. TECHNIQUE: Contiguous 5 mm axial imaging performed through the chest, abdomen and pelvis with IV cont rast, oral contrast has been provided. Coronal and sagittal reformats chest. Coronal and sagittal ref ormats through the abdomen and pelvis. All CT scans at [facility] use at least one of these d ose optimization techniques: automated exposure control; mA and/or kV adjustment per patient size (in cludes targeted exams where dose is matched to clinical indication); or iterative reconstruction. CONTRAST: Omnipaque 350; 150 mL IV. DLP: 3172.7 mGy.cm COMPARISON: 07/09/[address]: Moderate size layering LEFT pleural effusion. Soft tissue consolidation centered at the LEF T hilum with peripheral enhancement has been previously described. Masslike consolidation encases the LEFT lower lobe bronchial structures. Mass measures approximately 5.4 x 5.8 cm. Additional irregular soft tissue nodule at the LEFT lung base anteriorly with a maximum diameter of 3.5 cm. There are add itional scattered opacifications within both lungs which may represent metastatic disease or pneumoni tis. Pericardial effusion is irregular. The LEFT hilar tumor extends to abut the pericardium on the L EFT. Heart size is normal. Small hiatal hernia. Abdomen CT: Liver is normal size. Low-attenuation masses within the spleen were not definitely presen t on the prior exams. Pancreas is normal. Perinephric stranding around each kidney with no obstruction or mass. Atheroscler osis aorta. Marked thickening of the LEFT adrenal gland. Normal RIGHT adrenal gland. No GI tract obst ruction. Diverticulosis without acute diverticulitis. The appendix is normal. No adenopathy or ascite s. Soft tissue anasarca. Pelvic CT: No free fluid in the pelvis. Urinary bladder is negative. Increase in the lumbar lordosis. No osteoblastic or osteolytic bone disease. There is a sclerotic foc us measuring 1.5 cm in ischium. This is probably a bone. CT/CT chest abd pel w con* IMPRESSION: 1. Irregular soft tissue mass centered at the LEFT hilum extending along the L EFT lower lobe bronchovascular structures suspicious for neoplasm. This mass is difficult to measure accurately but measures at least 5.4 x 5.8 cm. There is e xtension to the pericardium and possible pericardial metastatic disease. 2. Additional soft tissue nodule at the LEFT lung base suspicious for metastat ic site. Scattered nodules throughout both lungs which may be areas of pneumoni tis or early metastatic lung disease. This can be better evaluated by PET/CT. 3. Moderate size layering LEFT pleural effusion. 4. Thickening of the LEFT adrenal gland. Adenoma versus metastatic disease. 5. Variable enhancement of the spleen may be due to the early phase of enhance ment. Not definitely seen on the prior study therefore suspect this may be rela ebonie to phase of enhancement. 6. Prior cholecystectomy. 7. Soft tissue anasarca.
[2021-07-11 11:45] LABS: Alanine Aminotransferase 16 U/L (0-33); Albumin Level 2.6 g/dL (3.5-5.2); Alkaline Phosphatase 147 IU/L (35-105); Anion Gap 18.1 (5-19); Aspartate Amino Transferase 13 U/L (0-32); Blood Urea Nitrogen 44 mg/dL (8-23); Calcium 8.9 mg/dL (8.5-10.5); Carbon Dioxide 20 mmol/L (22-29); Chloride 103 mmol/L (98-107); Globulin 3.8 g/dL (1.3-4.6); Glomerular Filtration Rate 84.2 mL/min (90-130); Glucose 156 mg/dL (65-115); Osmolality Calculated 298 mOsm/kg (285-295); Potassium 4.1 mmol/L (3.5-5.1); Sodium 137 mmol/L (136-145); Total Bilirubin 0.3 mg/dL (0.15-1.2); Total Protein 6.4 g/dL (6.6-8.7)
--- NOTE | 2021-07-11 12:29 | PC.NURSE ---
pt left floor for MRI
--- NOTE | 2021-07-11 12:40 | PC.NURSE ---
pt back from MRI. Pt was unable to complete the scan.
--- NOTE | 2021-07-11 13:10 | P.PN_ITS ---
Subjective Subjective: Interval history: Last night had a rough night, had left-sided chest pain, trouble taking deep breaths due to pain. Doing little bit better this morning. Visited by her . Vitals/I&O/Wt Last Vital Signs Temp 98.2 F 07/11/21 09:16 Pulse 109 H 07/11/21 09:18 Resp 18 07/11/21 09:18 BP 135/88 07/11/21 09:16 Pulse Ox 98 07/11/21 09:18 07/10/21 07/11/21 07/11/21 22:59 06:59 14:59 Intake Total 592 / 842 340 / 1182 490 / 490 Output Total 240 / 240 200 / 440 Balance 352 / 602 140 / 742 490 / 490 Weight last 48 hrs Weight 132.449 kg Physical Exam Const: COMMON NORMALS: no acute distress and patient oriented x3 GENERAL APPEARANCE: comfortable and frail appearing NUTRITIONAL APPEARANCE: obese morbidly obese OTHER: Sitting up in chair. HENMT: COMMON NORMALS: oropharynx normal Neck/C-Spine: OTHER: Unable to assess for JVD due to body habitus Resp: COMMON NORMALS: normal respiratory effort and clear to auscultation bilaterally AUSCULTATION: clear to auscultation bilaterally Cardio: COMMON NORMALS: regular rhythm, S1 normal heart sound present, S2 normal heart sound present and No murmurs present (Cardio) RHYTHM: regular rhythm HEART SOUNDS: S1 normal heart sound present and S2 normal heart sound present GI: COMMON NORMALS: Normal to inspection, nondistended, normoactive bowel sounds present, Soft to palpation and non-tender PALPATION: Yes Soft to palpation Extremity: COMMON NORMALS: no joint enlargement GENERAL: Yes edema Neuro: COMMON NORMALS: patient oriented x3 and moves all extremities Skin: COMMON NORMALS: no rashes or lesions noted GENERAL SKIN EXAM: no rashes or lesions noted Data : 07/11/21 10:50 07/11/21 10:50 Micro: Microbiology 07/09/21 19:40 Blood Culture - Preliminary Blood NEGATIVE TO DATE 07/09/21 19:55 Blood Culture - Preliminary Blood NEGATIVE TO DATE 07/09/21 23:20 MRSA Culture - Final Nose 07/09/21 23:20 Bacterial Antigens - Final Urine,Clean Catch 07/09/21 23:20 Legionella Urinary Antigen - Final Urine,Clean Catch A&P Assessment and plan (1) Postobstructive pneumonia: Overnight requiring up to 6 L of oxygen. Was having quite a bit of pain on left side, worse with deep breaths, somewhat better this morning. Down to 3 L currently. Discussed with her and reviewed images there is no possibility for stenting due to the location of the tumor to relieve obstruction. In addition to IV antibiotics consideration of this be given to radiation therapy. As per oncology recommendations we are thus seeking additional evaluation in terms of staging, requested MRI brain, but she could not unfortunately fit in the machine. Requesting CT head with and without contrast instead. Requesting CT chest abdomen pelvis as per recommendation, as well as bone scan to look for distant metastases. Discussed oncology will start and with her regarding noted on CT density regular involvement. Echocardiogram, limited study currently and in May had a full study performed. Discussed with cardiology will evaluate the images specifically with regards to the pericardium as well, although the current study had very limited views. Subsequently on PET scan in March a spot on the left vocal cord had lit up for which we will also need additional outpatient relation by ENT as per discussion with oncology. In the meantime continue IV antibiotics. Chest PT. Mucinex. Flutter valve. I-S. Follow-up repeat imaging with consideration of thoracentesis. We will also need a Port-A-Cath. Status: Acute (2) Chest pain: Troponin with mild elevation, without peaking, not suggestive of acute MA. With CHF exacerbation, will assess limited TTE. Recent TTE with normal ejection fraction, moderately increased right ventricular size, moderately increased right atrial size, moderately thickened mitral valve, no MR. Continue aspirin, Eliquis. Add nitroglycerin as needed. Once oxygenation is doing somewhat better, consider additional risk stratification with stress test ing. Status: Acute (3) Diastolic heart failure: Acute diastolic congestive heart failure exacerbation. Increase Bumex dose to 2 mg. Monitor I&O. Limited TTE technically difficult study. Normal EF. No obvious RWMA, although possibility cannot entirely be ruled out. Status: Acute (4) Edema: Bilateral lower extremity 3+ edema. Secondary to CHF exacerbation as above. Status: Acute (5) Pleural effusion: In the setting of CHF exacerbation, but also pneumonia, currently started on treatment with IV Bumex, antibiotics. Is also on anticoagulation currently. If not improving consider thoracentesis, although anticoagulation will need to be held prior. So for now we will transition to Lovenox. Status: Acute (6) Hyperkalemia: Improved. Hold potassium supplement. Hold ARB. Low potassium diet. Status: Acute (7) HARRIS (acute kidney injury): Resolved. Unremarkable CK. Hold ARB. Status: Acute (8) Bradycardia: Resolved. Amiodarone was continued. Cardizem held. Digoxin held. Therapeutic dig level. Monitor on telemetry. Unremarkable limited TTE, although very limited study. This study and prior full echo in May will be reviewed additionally specifically to look for possible malignant pericardial involvement. TSH normal. Hyperkalemia improved. Recheck magnesium. Status: Acute Additional A&P Information Adenocarcinoma of lung: Staging in process Pending appointment with ENT for evaluation of incidental abnormality seen in left vocal cord Has history of left-sided recurrent chest pain, chronic neck pain Attestations Medical Necessity Statement*: Continue admission for assessment of management of postobstructive pneumonia with adenocarcinoma of the lung, possible pericardial involvement. Coding Level of Care Code Acute Process Description Writer for [facility] Fwd Exam Comprehensive Diagnoses Postobstructive pneumonia J18.9 Chest pain R07.9 Diastolic heart failure I50.30 Edema R60.9 Pleural effusion J90 Hyperkalemia E87.5 HARRIS (acute kidney injury) N17.9 Bradycardia R00.1
--- NOTE | 2021-07-11 13:13 | CT_ITS ---
WS: [id number] CT head wo/w con [id number] REASON FOR EXAM: lung ca, assess for met dz, could not have MRI IV CONTRAST ADMINISTERED: 75 mL of Omnipaque 300 TOTAL EXAM DLP: 1008.[address] scans at [facility] use at least one of these dose optimization techniques: automat ed exposure control; mA and/or kV adjustment per patient size (includes targeted exams where dose is matched to clinical indication); or iterative reconstruction. FINDINGS: No midline shift or other significant mass effect. No findings of intracranial hemorrhage and no extra-axial fluid collection. No focus of abnormal contrast enhancement or other focal brain parenchymal abnormality is identified. Normal ventricles Base of the skull is intact. Large area of destruction, 3 x 3 cm, in the bony calvarium, involving mae th the inner and outer table. Posterior midline 7 cm above the base of the skull. CT/CT head wo/w con 54521 IMPRESSION: No acute focal brain abnormality. 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
[2021-07-11] MEDS: iohexol 300 mg/mL 100 mL Btl IV ×2 (14:34→14:35)
[2021-07-11] MEDS: pantoprazole DR 40 mg Tablet PO (15:55)
[2021-07-11] MEDS: guaiFENesin 600 mg Tablet 1200 MG PO (17:02)
[2021-07-11] MEDS: metoprolol tartrate 50 mg Tablet PO (18:53)
[2021-07-11 18:56] LABS: Vancomycin Trough 10.9 ug/mL (10-15)
--- NOTE | 2021-07-11 20:34 | PC.NURSE ---
Received report from JESICA Thomas. Patient resting in bed with eyes closed. Eyes open spontaneously. Patient resports feeling some better with improved strength. Patient has flutter valve and IS at bedside. Patient reports enjoying the flutter valve. Discussed importance of both. Patient verbalized complete understanding.
[2021-07-11] MEDS: trazodone 100 mg Tablet PO (21:36)
[2021-07-12] VITALS (13 sets, daily range): BP systolic 104–173; BP diastolic 72–84; PULSE 82–100; RESP 18–26; TEMP 35.9–36.8; O2SAT 93–98
[2021-07-12] MEDS: piperacillin-tazobactam 3.375 GM in sodium chloride 0.9% (plus) 50 ML IV ×3 (03:08→21:46)
[2021-07-12] MEDS: ipratropium-albuterol 3 mL Neb INHALATION ×2 (05:12→11:19)
[2021-07-12 05:18] LABS: Basophils % 0.2 %; Eosinophils % 0.1 %; Hematocrit 30.7 % (37.0-47.0); Hemoglobin 9.3 g/dL (11.5-15.3); Lymphocytes # 1.9 10^3/uL (0.8-4.8); Lymphocytes % 10.7 %; Mean Corpuscular HGB Conc 30.3 g/dL (30.0-36.0); Mean Corpuscular Hemoglobin 28.7 pg (28.0-34.0); Mean Corpuscular Volume 94.8 fl (81-99); Mean Platelet Volume 11.1 fL (7.4-10.4); Monocytes # 1.3 10^3/uL (0.2-0.9); Monocytes % 7.6 %; Neutrophils # 14.06 10^3/uL (1.8-7.7); Neutrophils % 80.1 %; Nucleated Red Blood Cells % 0.1 %; Platelet Count 236 10^3/cmm (130-400); Red Blood Count 3.24 10^6/uL (4.1-5.3); Red Cell Distribution Width 14.4 % (12.1-15.1); White Blood Count 17.6 10^3/uL (4.0-10.0)
[2021-07-12 05:36] LABS: Alanine Aminotransferase 18 U/L (0-33); Albumin Level 2.9 g/dL (3.5-5.2); Alkaline Phosphatase 144 IU/L (35-105); Blood Urea Nitrogen 41 mg/dL (8-23); Calcium 8.9 mg/dL (8.5-10.5); Carbon Dioxide 24 mmol/L (22-29); Chloride 101 mmol/L (98-107); Globulin 3.7 g/dL (1.3-4.6); Glomerular Filtration Rate 84.2 mL/min (90-130); Glucose 131 mg/dL (65-115); Magnesium 1.7 mg/dL (1.7-2.3); Osmolality Calculated 296 mOsm/kg (285-295); Sodium 137 mmol/L (136-145); Total Bilirubin 0.3 mg/dL (0.15-1.2); Total Protein 6.6 g/dL (6.6-8.7)
[2021-07-12 05:39] LABS: Anion Gap 16.9 (5-19); Aspartate Amino Transferase 17 U/L (0-32); Potassium 4.9 mmol/L (3.5-5.1)
[2021-07-12] MEDS: PARoxetine 20 mg Tablet PO (05:43)
[2021-07-12] MEDS: vancomycin 1,000 MG in sodium chloride 0.9% 250 ML 250 MG IV ×2 (06:46→19:20)
--- NOTE | 2021-07-12 06:47 | PC.NURSE ---
Shift Note Frequent safety and comfort rounds continue. Orders and/or nursing care completed as indicated. Patient monitored for response to intervention and treatment(s). Education provided includes vancomycin. Patient verbalized complete understanding. Patient up to BSC multiple times with moderate to max assist. Patient only able to urinate 100ml at each time. Patient becomes extremely SOB with exertions. Pain to chest controlled presently. Will continue to monitor.
[2021-07-12] MEDS: nystatin 100,000 unit/mL UDC 5 mL 100000 UNIT PO ×3 (08:23→21:15)
[2021-07-12] MEDS: guaiFENesin 600 mg Tablet 1200 MG PO ×2 (08:24→18:57)
[2021-07-12] MEDS: bumetanide 0.25 mg/mL SDV 4 mL 2 MG IVP (08:24)
[2021-07-12] MEDS: aspirin 325 mg Tablet PO (08:24)
[2021-07-12] MEDS: atorvastatin 40 mg Tablet PO (08:25)
[2021-07-12] MEDS: BuSPIRONE 10 mg Tablet PO ×3 (08:25→21:14)
[2021-07-12] MEDS: amiodarone 200 mg Tablet PO (08:25)
[2021-07-12] MEDS: sucralfate 1 gm Tablet PO ×3 (08:26→21:15)
[2021-07-12] MEDS: metoprolol tartrate 50 mg Tablet PO ×2 (08:32→23:00)
[2021-07-12] MEDS: HYDROcodone-acetaminophen 5-325 mg Tablet 1 TAB PO ×3 (08:32→21:14)
[2021-07-12] MEDS: enoxaparin 100 mg/mL Syringe SUBCUT ×2 (08:33→21:15)
[2021-07-12] MEDS: enoxaparin 30 mg/0.3 mL Syringe SUBCUT ×2 (08:34→21:15)
[2021-07-12] MEDS: pantoprazole DR 40 mg Tablet PO (15:13)
--- NOTE | 2021-07-12 19:24 | PC.NURSE ---
Received report from KEVIN Maurer. Patient resting in bed with eyes closed. Patient presently has audible wheezing. Initiated Vancomycin at this time. Discussed plan for slaughter and possible aggressive diuresing. Patient verbalized understanding. No other needs presently. No other distresses observed. Will continue to monitor.
[2021-07-12] MEDS: trazodone 100 mg Tablet PO (21:15)
--- NOTE | 2021-07-12 21:18 | PM.PN ---
Subjective Subjective: Interval history: States she is doing about the same today. Denies being more short of breath. Discussed with her and her regarding results of CT of the head, CT chest abdomen pelvis, echocardiogram, with noted lesion in the calvarium, although lytic lesion as per discussion with oncology not typical of her underlying pulmonary malignancy, discussed additional nodule at the base of the lung, as well as invasion of pericardium and concern for pericardial metastatic disease which cannot be confirmed yet currently. Discussed consideration of radiation therapy, extent of which may depend on whether metastatic disease is present. I am notified that she could not have a bone scan done as could not lay flat and so the study was canceled. Vitals/I&O/Wt Last Vital Signs Temp 98.3 F 07/12/21 19:03 Pulse 82 07/12/21 19:03 Resp 26 H 07/12/21 19:03 BP 173/76 07/12/21 19:03 Pulse Ox 96 07/12/21 19:03 07/12/21 07/12/21 07/12/21 06:59 14:59 22:59 Intake Total 410 / 1796 840 / 840 290 / 1130 Output Total 520 / 520 200 / 720 Balance 410 / 1796 320 / 320 90 / 410 Physical Exam Narrative: EXAM NARRATIVE: at bedside. Const: COMMON NORMALS: no acute distress and patient oriented x3 GENERAL APPEARANCE: comfortable and frail appearing NUTRITIONAL APPEARANCE: obese morbidly obese OTHER: Sitting up in chair. HENMT: COMMON NORMALS: oropharynx normal Neck/C-Spine: OTHER: Unable to assess for JVD due to body habitus Resp: COMMON NORMALS: normal respiratory effort AUSCULTATION: diminished lung sounds on the left in the lower lung ware Cardio: COMMON NORMALS: regular rhythm, S1 normal heart sound present, S2 normal heart sound present and No murmurs present (Cardio) RHYTHM: regular rhythm HEART SOUNDS: S1 normal heart sound present and S2 normal heart sound present GI: COMMON NORMALS: Normal to inspection, nondistended, normoactive bowel sounds present, Soft to palpation and non-tender PALPATION: Yes Soft to palpation Extremity: COMMON NORMALS: no joint enlargement GENERAL: Yes edema Neuro: COMMON NORMALS: patient oriented x3 and moves all extremities Skin: COMMON NORMALS: no rashes or lesions noted GENERAL SKIN EXAM: no rashes or lesions noted Data : 07/12/21 04:30 07/12/21 04:30 A&P Assessment and plan (1) Postobstructive pneumonia: As per discussion of findings of CT head with 3 x 3 cm lytic lesion noted, not consistent with underlying adenocarcinoma, as well as CT and echocardiogram findings with noted pericardial extension and suspicious, but not confirmatory of pericardial metastatic disease. Discussed consideration of MACK, discussed with cardiology, her, imaging quality not likely to provide additional detail to identify pericardial metastatic disease beyond what is currently available. Discussed again with oncology. We will have to consider with her additional options of moving forward to confirm presence or absence of metastatic disease. Continue IV antibiotics at this time for left lower lobe pneumonia with postobstructive features. Subsequently on PET scan in March a spot on the left vocal cord had lit up for which we will also need additional outpatient relation by ENT as per discussion with oncology. In the meantime continue IV antibiotics. Chest PT. Mucinex. Flutter valve. I-S. We will discuss consideration of referral for thoracentesis well, although will need to hold anticoagulation for that. Will also need a Port-A-Cath. Status: Acute (2) Chest pain: Troponin with mild elevation, without peaking, not suggestive of acute GA. With CHF exacerbation, will assess limited TTE. Recent TTE with normal ejection fraction, moderately increased right ventricular size, moderately increased right atrial size, moderately thickened mitral valve, no MR. Continue aspirin, Lovenox. Nitroglycerin as needed. Consider additional risk stratification with stress testing. Status: Acute (3) Diastolic heart failure: Fluid restrict 800 mL/day. Increase Bumex to 4 mg IV. Acute diastolic congestive heart failure exacerbation. Monitor I&O. Limited TTE technically difficult study. Normal EF. No obvious RWMA, although possibility cannot entirely be ruled out. Status: Acute (4) Edema: Bilateral lower extremity 3+ edema. Secondary to CHF exacerbation as above. Status: Acute (5) Pleural effusion: In the setting of CHF exacerbation, but also pneumonia, currently started on treatment with IV Bumex, antibiotics. Is also on anticoagulation currently. Will discuss with her consideration for referral for thoracentesis. Status: Acute (6) Hyperkalemia: Improved. Hold potassium supplement. Hold ARB. Low potassium diet. Status: Acute (7) HARRIS (acute kidney injury): Resolved. Unremarkable CK. Hold ARB. Status: Acute (8) Bradycardia: Resolved. Amiodarone was continued. Cardizem held. Digoxin held. Therapeutic dig level. Monitor on telemetry. Unremarkable limited TTE, although very limited study. This study and prior full echo in May will be reviewed additionally specifically to look for possible malignant pericardial involvement. TSH normal. Hyperkalemia improved. Recheck magnesium. Status: Acute Additional A&P Information Adenocarcinoma of lung: Staging in process Pending appointment with ENT for evaluation of incidental abnormality seen in left vocal cord Has history of left-sided recurrent chest pain, chronic neck pain Attestations Medical Necessity Statement*: Continue admission for assessment management of postobstructive pneumonia in setting of adenocarcinoma of left lung with pericardial involvement of not yet determined extent, would benefit from radiation therapy again extent of which would depend on staging. Continue diuresis for CHF exacerbation. Coding Level of Care Code Acute Environmental Health Officer for [facility] Fwd Diagnoses Postobstructive pneumonia J18.9 Chest pain R07.9 Diastolic heart failure I50.30 Edema R60.9 Pleural effusion J90 Hyperkalemia E87.5 HARRIS (acute kidney injury) N17.9 Bradycardia R00.1
--- NOTE | 2021-07-12 22:19 | PC.NURSE ---
Observed patient to have increased swelling to bilateral lower extremities with multiple blisters beginning to form to bilateral shins. Prajapati catheter placed as ordered and documented. Patient tolerated fair.
[2021-07-12] MEDS: bumetanide 0.25 mg/mL SDV 10 mL 4 MG IVP (23:00)
[2021-07-13] VITALS (12 sets, daily range): BP systolic 117–173; BP diastolic 72–107; PULSE 79–99; RESP 14–30; TEMP 36.6–37; O2SAT 80–96
[2021-07-13] MEDS: piperacillin-tazobactam 3.375 GM in sodium chloride 0.9% (plus) 50 ML IV ×3 (03:07→21:09)
[2021-07-13] MEDS: HYDROcodone-acetaminophen 5-325 mg Tablet 1 TAB PO ×3 (03:26→14:54)
[2021-07-13 04:58] LABS: Basophils % 0.1 %; Eosinophils % 0.2 %; Hematocrit 32.6 % (37.0-47.0); Hemoglobin 9.5 g/dL (11.5-15.3); Lymphocytes # 1.5 10^3/uL (0.8-4.8); Mean Corpuscular HGB Conc 29.1 g/dL (30.0-36.0); Mean Corpuscular Hemoglobin 28.4 pg (28.0-34.0); Mean Corpuscular Volume 97.6 fl (81-99); Mean Platelet Volume 10.4 fL (7.4-10.4); Monocytes # 1.3 10^3/uL (0.2-0.9); Neutrophils # 13.47 10^3/uL (1.8-7.7); Neutrophils % 81.1 %; Nucleated Red Blood Cells % 0.2 %; Platelet Count 213 10^3/cmm (130-400); Red Blood Count 3.34 10^6/uL (4.1-5.3); Red Cell Distribution Width 14.6 % (12.1-15.1); White Blood Count 16.6 10^3/uL (4.0-10.0)
--- NOTE | 2021-07-13 05:01 | PC.NURSE ---
Shift Note Frequent safety and comfort rounds continue. Orders and/or nursing care completed as indicated. Patient monitored for response to intervention and treatment(s). Education provided includes slaughter catheter placement. Patient verbalized understanding and was agreeable to have slaughter placed. Patient instructed on increased dose of Bumex for additional diuresis. Again, verbalized complete understanding. Pain and anxiety controlled at this time. Patient able to sleep the night through. Patient has increased work of breathing with accessory muscle use. Patient currently has SpO2 of 93% sustained on 5L NC. Will continue to monitor.
[2021-07-13] MEDS: ipratropium-albuterol 3 mL Neb INHALATION ×3 (05:10→22:55)
[2021-07-13 05:14] LABS: Alanine Aminotransferase 21 U/L (0-33); Albumin Level 2.9 g/dL (3.5-5.2); Alkaline Phosphatase 151 IU/L (35-105); Anion Gap 17.4 (5-19); Aspartate Amino Transferase 15 U/L (0-32); Blood Urea Nitrogen 40 mg/dL (8-23); Carbon Dioxide 24 mmol/L (22-29); Chloride 99 mmol/L (98-107); Globulin 3.9 g/dL (1.3-4.6); Glomerular Filtration Rate 84.2 mL/min (90-130); Glucose 132 mg/dL (65-115); Osmolality Calculated 294 mOsm/kg (285-295); Potassium 4.4 mmol/L (3.5-5.1); Sodium 136 mmol/L (136-145); Total Bilirubin 0.4 mg/dL (0.15-1.2); Total Protein 6.8 g/dL (6.6-8.7)
[2021-07-13] MEDS: bumetanide 0.25 mg/mL SDV 4 mL 4 MG IVP (06:15)
[2021-07-13] MEDS: PARoxetine 20 mg Tablet PO (06:15)
[2021-07-13] MEDS: atorvastatin 40 mg Tablet PO (08:08)
[2021-07-13] MEDS: metoprolol tartrate 50 mg Tablet PO (08:08)
[2021-07-13] MEDS: enoxaparin 30 mg/0.3 mL Syringe SUBCUT ×2 (08:08→21:11)
[2021-07-13] MEDS: nystatin 100,000 unit/mL UDC 5 mL 100000 UNIT PO ×4 (08:08→21:52)
[2021-07-13] MEDS: sucralfate 1 gm Tablet PO ×3 (08:08→17:19)
[2021-07-13] MEDS: amiodarone 200 mg Tablet PO (08:08)
[2021-07-13] MEDS: aspirin 325 mg Tablet PO (08:08)
[2021-07-13] MEDS: BuSPIRONE 10 mg Tablet PO ×3 (08:08→21:08)
[2021-07-13] MEDS: guaiFENesin 600 mg Tablet 1200 MG PO ×2 (08:08→17:19)
[2021-07-13] MEDS: enoxaparin 100 mg/mL Syringe SUBCUT ×2 (08:09→21:10)
[2021-07-13] MEDS: vancomycin 1,000 MG in sodium chloride 0.9% 250 ML 250 MG IV ×2 (08:09→19:19)
[2021-07-13] MEDS: pantoprazole DR 40 mg Tablet PO (14:55)
--- NOTE | 2021-07-13 16:09 | PC.RESP ---
PULMONARY REHAB INFORMATION SENT TO PATIENT.
--- NOTE | 2021-07-13 19:10 | PC.NURSE ---
Physician approved to stay the night.
[2021-07-13] MEDS: trazodone 100 mg Tablet PO (21:08)
[2021-07-13] MEDS: metoprolol tartrate 25 mg Tablet 12.5 MG PO (21:09)
--- NOTE | 2021-07-13 22:28 | XRR_ITS ---
PROCEDURE INFORMATION: Exam: XR Chest Exam date and time: 07/13/2021 10:28 PM Age: 66 years old Clinical indication: Shortness of breath; Additional info: Pulmonary edema TECHNIQUE: Imaging protocol: XR of the chest. Views: 1 view. COMPARISON: CT chest abd pel w con* 07/11/2021 2:31 PM FINDINGS: Lungs: There are strandy and hazy opacity seen in the hemithoraces bilaterally and there is some mild indistinctness of the pulmonary vasculature, findings that could represent pulmonary edema although bilateral pneumonitis cannot be excluded. Pleural spaces: See Heart/Mediastinum finding. Heart/Mediastinum: The left hemidiaphragm and cardiac border is obscured likely secondary to a pleural effusion. Bones/joints: Unremarkable. XR/XR chest 1V portable [id number] IMPRESSION: 1. There is a moderate left pleural effusion obscuring the left hemidiaphragm and cardiac border. 2. Indistinct pulmonary vasculature and bilateral increased interstitial opacities may represent pulmonary edema. Superimposed bilateral interstitial pneumonitis cannot be excluded. Radiation Dose CTDIVOL = (mGy): DLP = (mGy-cm)
--- NOTE | 2021-07-13 22:50 | PC.NURSE ---
After talking with patient and with Dr. Aguilar at bedside patient's code status will be changed from full code to possible DNR DNI, patient remains alert and orientated however respiratory status has been declining.
--- NOTE | 2021-07-13 22:56 | P.PN_ITS ---
Subjective Subjective: Interval history: This morning she was feeling more dyspneic, although saturation remained good in the 90s. Received Counselor, subsequently breathing more easily, but somnolent. Generally weak. Had a difficult night, with significant orthopnea. Vitals/I&O/Wt Last Vital Signs Temp 97.8 F 07/13/21 18:43 Pulse 80 07/13/21 18:43 Resp 22 H 07/13/21 18:43 BP 153/72 07/13/21 18:43 Pulse Ox 80 L 07/13/21 18:43 07/13/21 07/13/21 07/13/21 06:59 14:59 22:59 Intake Total 50 / 1430 536 / 536 168 / 704 Output Total 870 / 1590 1150 / 1150 Balance -820 / -160 536 / 536 -982 / -446 Physical Exam Narrative: EXAM NARRATIVE: Family at bedside including . Const: COMMON NORMALS: no acute distress and patient oriented x3 GENERAL APPEARANCE: comfortable and frail appearing NUTRITIONAL APPEARANCE: obese morbidly obese OTHER: Sitting up in chair. HENMT: COMMON NORMALS: oropharynx normal Neck/C-Spine: OTHER: Unable to assess for JVD due to body habitus Resp: COMMON NORMALS: normal respiratory effort AUSCULTATION: diminished lung sounds on the left in the lower lung ware Cardio: COMMON NORMALS: regular rhythm, S1 normal heart sound present, S2 normal heart sound present and No murmurs present (Cardio) RHYTHM: regular rhythm HEART SOUNDS: S1 normal heart sound present and S2 normal heart sound present GI: COMMON NORMALS: Normal to inspection, nondistended, normoactive bowel sounds present, Soft to palpation and non-tender PALPATION: Yes Soft to palpation Extremity: COMMON NORMALS: no joint enlargement GENERAL: Yes edema Neuro: COMMON NORMALS: patient oriented x3 and moves all extremities Skin: COMMON NORMALS: no rashes or lesions noted GENERAL SKIN EXAM: no rashes or lesions noted Urinary Catheter Management^: Prajapati: Cath Placed During This Visit: yes Reason for Continuing Indwelling Catheter: Other Urinary Catheter Date of Insertion: 07/12/21 Urinary Catheter Time of Insertion: 22:16 Data : 07/13/21 04:19 07/13/21 04:19 A&P Assessment and plan (1) Postobstructive pneumonia: Had a difficult night with significant orthopnea. This morning feeling more short of breath, dyspneic, more tachypneic up into the upper 20s. Yesterday diuresis was escalated given significant edema, diastolic heart failure, however, this afternoon blood pressures noted getting softer, down as low as 104/72, and with this she is feeling worse. Held further diuretics for now with concern of possible constrictive physiology with the abnormal appearance of pericardium. Blood pressure this evening back up again to 153/72. Discussed with her and her regarding additional discussions with cardiology, oncology. Given lack of sufficient imaging modality here, with MACK unable to sufficiently visualize pericardium to add information that is more revealing than currently available studies, PET scan would be considered best study currently as per discussion with oncology, her, unable to be obtained, no slots available for tomorrow. Per discussion with oncology would benefit from transfer to tertiary facility for completion of staging and initiation of treatment. Discussed with her and her , they were agreeable for arrangements for transfer. Contacted a number of facilities, with [facility] accepting her, but placed on a waiting list due to current lack of beds. Discussing with her they are now not sure whether want to pursue transfer. They understand that if she is to stay here she may not be able to receive optimal treatment that may help her recover from the postobstructive pneumonia, and initiate appropriate treatment control to the extent of malignant disease, which is not identified due to difficulties with obtaining staging. She requests to take some time and discuss again tomorrow to think about her options and overall goals of care. Continue IV antibiotics at this time for left lower lobe pneumonia with postobstructive features. On PET scan in March a spot on the left vocal cord had lit up for which we will also need additional outpatient evaluation by ENT as per discussion with oncolog y. 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 In the meantime continue IV antibiotics. Chest PT. Mucinex. Flutter valve. I-S. We will discuss consideration of referral for thoracentesis well, although will need to hold anticoagulation for that. Will also need a Port-A-Cath. Status: Acute (2) Chest pain: Troponin with mild elevation, without peaking, not suggestive of acute MT. With CHF exacerbation, will assess limited TTE. Recent TTE with normal ejection fraction, moderately increased right ventricular size, moderately increased right atrial size, moderately thickened mitral valve, no MR. Continue aspirin, Lovenox. DC nitroglycerin. Consider additional risk stratification with stress testing. Status: Acute (3) Diastolic heart failure: Fluid restrict 800 mL/day. Further diuretics on hold. Transient soft blood pressures this afternoon as low as 104/72. Concern for possible constrictive physiology with abnormal appearing pericardium. Diastolic congestive heart failure. Monitor I&O. Limited TTE technically difficult study. Normal EF. No obvious RWMA, although possibility cannot entirely be ruled out. Status: Acute (4) Edema: Bilateral lower extremity 3+ edema. Secondary to CHF exacerbation as above. Status: Acute (5) Pleural effusion: In the setting of CHF exacerbation, but also pneumonia, currently started on treatment with IV Bumex, antibiotics. Is also on anticoagulation currently. Will discuss with her consideration for referral for thoracentesis. Status: Acute (6) Hyperkalemia: Improved. Hold potassium supplement. Hold ARB. Low potassium diet. Status: Acute (7) HARRIS (acute kidney injury): Resolved. Unremarkable CK. Hold ARB. Status: Acute (8) Bradycardia: Resolved. Amiodarone was continued at lower dose. Metoprolol resumed. Cardizem held. Digoxin held. Therapeutic dig level. Monitor on telemetry. Unremarkable limited TTE, although very limited study. This study and prior full echo in May will be reviewed additionally specifically to look for possible malignant pericardial involvement. TSH normal. Hyperkalemia improved. Recheck magnesium. 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 Coding Level of Care Code Acute Educational Administrator for [facility] Fwd Exam Comprehensive Diagnoses Postobstructive pneumonia J18.9 Chest pain R07.9 Diastolic heart failure I50.30 Edema R60.9 Pleural effusion J90 Hyperkalemia E87.5 HARRIS (acute kidney injury) N17.9 Bradycardia R00.1
[2021-07-14] VITALS (44 sets, daily range): BP systolic 134; BP diastolic 106; PULSE 82–114; RESP 18–45; O2SAT 60–100
[2021-07-14] MEDS: piperacillin-tazobactam 3.375 GM in sodium chloride 0.9% (plus) 50 ML IV (03:20)
[2021-07-14] MEDS: HYDROcodone-acetaminophen 5-325 mg Tablet 1 TAB PO (04:36)
[2021-07-14] MEDS: BuSPIRONE 10 mg Tablet PO (08:11)
[2021-07-14] MEDS: atorvastatin 40 mg Tablet PO (08:11)
[2021-07-14] MEDS: aspirin 325 mg Tablet PO (08:11)
[2021-07-14] MEDS: guaiFENesin 600 mg Tablet 1200 MG PO (08:11)
[2021-07-14] MEDS: sucralfate 1 gm Tablet PO (08:11)
[2021-07-14] MEDS: amiodarone 200 mg Tablet PO (08:11)
[2021-07-14] MEDS: vancomycin 1,000 MG in sodium chloride 0.9% 250 ML 250 MG IV (08:12)
[2021-07-14] MEDS: ipratropium-albuterol 3 mL Neb INHALATION (10:47)
[2021-07-14 11:15] LABS: Basophils % 0.1 %; Eosinophils % 0.1 %; Hematocrit 30.7 % (37.0-47.0); Hemoglobin 9.4 g/dL (11.5-15.3); Lymphocytes # 1.5 10^3/uL (0.8-4.8); Mean Corpuscular HGB Conc 30.6 g/dL (30.0-36.0); Mean Corpuscular Hemoglobin 28.7 pg (28.0-34.0); Mean Corpuscular Volume 93.9 fl (81-99); Mean Platelet Volume 10.8 fL (7.4-10.4); Monocytes # 1.5 10^3/uL (0.2-0.9); Monocytes % 8.3 %; Neutrophils # 15.15 10^3/uL (1.8-7.7); Nucleated Red Blood Cells # 0.1 /100WBC; Nucleated Red Blood Cells % 0.4 %; Platelet Count 229 10^3/cmm (130-400); Red Blood Count 3.27 10^6/uL (4.1-5.3); Red Cell Distribution Width 14.5 % (12.1-15.1); White Blood Count 18.5 10^3/uL (4.0-10.0)
[2021-07-14 11:33] LABS: Alanine Aminotransferase 19 U/L (0-33); Albumin Level 2.9 g/dL (3.5-5.2); Alkaline Phosphatase 157 IU/L (35-105); Anion Gap 18.1 (5-19); Aspartate Amino Transferase 13 U/L (0-32); Blood Urea Nitrogen 41 mg/dL (8-23); Calcium 9.2 mg/dL (8.5-10.5); Carbon Dioxide 22 mmol/L (22-29); Chloride 102 mmol/L (98-107); Globulin 3.7 g/dL (1.3-4.6); Glomerular Filtration Rate 100.6 mL/min (90-130); Glucose 162 mg/dL (65-115); Magnesium 1.7 mg/dL (1.7-2.3); Osmolality Calculated 300 mOsm/kg (285-295); Potassium 4.1 mmol/L (3.5-5.1); Sodium 138 mmol/L (136-145); Total Bilirubin 0.3 mg/dL (0.15-1.2); Total Protein 6.6 g/dL (6.6-8.7)
--- NOTE | 2021-07-14 14:05 | P.PN_ITS ---
Subjective Subjective: Interval history: After careful consideration, she and her this morning had notified nursing staff that the were not wanting to pursue further aggressive interventions, requested to cancel transfer to [facility] for additional assessment and treatment. The decided instead to transition to hospice with initiation of comfort care in the hospital. She is feeling generally weak, very dyspneic. Vitals/I&O/Wt Last Vital Signs Temp 97.8 F 07/13/21 18:43 Pulse 114 H 07/14/21 10:58 Resp 26 H 07/14/21 10:56 BP 134/106 07/14/21 04:01 Pulse Ox 96 07/14/21 10:56 07/13/21 07/14/21 07/14/21 22:59 06:59 14:59 Intake Total 168 / 704 600 / 1304 540 / 540 Output Total 1150 / 1150 375 / 1525 Balance -982 / -446 225 / -221 540 / 540 Physical Exam Narrative: EXAM NARRATIVE: at bedside. Const: COMMON NORMALS: no acute distress and patient oriented x3 GENERAL APPEARANCE: frail appearing NUTRITIONAL APPEARANCE: obese morbidly obese OTHER: Weak. HENMT: COMMON NORMALS: oropharynx normal Neck/C-Spine: OTHER: Unable to assess for JVD due to body habitus Resp: COMMON NORMALS: normal respiratory effort AUSCULTATION: diminished lung sounds on the left in the lower lung ware Cardio: COMMON NORMALS: regular rhythm, S1 normal heart sound present, S2 normal heart sound present and No murmurs present (Cardio) RHYTHM: regular rhythm HEART SOUNDS: S1 normal heart sound present and S2 normal heart sound present GI: COMMON NORMALS: Normal to inspection, nondistended, normoactive bowel sounds present, Soft to palpation and non-tender PALPATION: Yes Soft to palpation Extremity: COMMON NORMALS: no joint enlargement GENERAL: Yes edema Neuro: COMMON NORMALS: patient oriented x3 and moves all extremities Skin: COMMON NORMALS: no rashes or lesions noted GENERAL SKIN EXAM: no rashes or lesions noted Urinary Catheter Management^: Prajapati: Cath Placed During This Visit: yes Reason for Continuing Indwelling Catheter: Accurate Measurement of Urinary Output in Critically Ill Patients Urinary Catheter Date of Insertion: 07/12/21 Urinary Catheter Time of Insertion: 22:16 Data : 07/14/21 10:38 07/14/21 10:38 A&P Assessment and plan (1) Postobstructive pneumonia: Had again had a difficult night with orthopnea, weak, dyspneic. After careful consideration she and her decided that they would not pursue the arranged transfer for additional assessment and treatment at [facility], instead requesting transition to hospice care with comfort measures initiated here, requesting to discontinue antibiotics and other aggressive measures. Discussed with case management who will get in touch with hospice to start working with family. states that a ramp is being built to their house so that she may come in by wheelchair if she makes at home. Initiated comfort medications. Left lower lobe pneumonia with postobstructive features. 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 On PET scan in March a spot on the left vocal cord had lit up for which we will also need additional outpatient evaluation by ENT as per discussion with oncology. 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 Status: Acute (2) Chest pain: Status: Acute (3) Diastolic heart failure: Status: Acute (4) Edema: Bilateral lower extremity 3+ edema. Secondary to CHF Status: Acute (5) Pleural effusion: Status: Acute (6) Hyperkalemia: Resolved Status: Acute (7) HARRIS (acute kidney injury): Resolved. Unremarkable CK. Status: Acute (8) Bradycardia: Resolved. Status: Acute Additional A&P Information A. fib with RVR: Maintain amiodarone, metoprolol for now for comfort as she gets more uncomfortable with tachycardia, if she is able to take pills. Adenocarcinoma of lung: Decided not to pursue further evaluation or treatment. Pending appointment with ENT for evaluation of incidental abnormality seen in left vocal cord Has history of left-sided recurrent chest pain, chronic neck pain Attestations Medical Necessity Statement*: Continue admission for transition to hospice care, initiation of comfort measures in accordance with expressed care goals. Coding Level of Care Code Acute Social Worker Clinical for Chg Fwd Diagnoses Postobstructive pneumonia J18.9 Chest pain R07.9 Diastolic heart failure I50.30 Edema R60.9 Pleural effusion J90 Hyperkalemia E87.5 HARRIS (acute kidney injury) N17.9 Bradycardia R00.1
[2021-07-14] MEDS: metoprolol tartrate 50 mg Tablet PO ×2 (14:13→22:41)
[2021-07-14] MEDS: morphine 10 mg/0.5 mL oral liq UD 5 MG SUBLINGUAL ×2 (14:14→16:06)
--- NOTE | 2021-07-14 17:23 | PC.NURSE ---
patient having a hard time breathing at this time shallow rapid breathing noted call place to Dr olvera instructions received to change roxenal dose to 10mg Q2 hours ok to give does now
[2021-07-14] MEDS: morphine 10 mg/0.5 mL oral liq UD PO ×2 (17:30→22:41)
--- NOTE | 2021-07-14 19:12 | PC.NURSE ---
Shift Note Frequent safety and comfort rounds continue. Orders and/or nursing care completed as indicated. Patient monitored for response to intervention and treatment(s). Education provided includes Comfort care. Patient and/or employment representative verbalized understanding Will continue to monitor.
[2021-07-14] MEDS: trazodone 100 mg Tablet PO (22:41)
[2021-07-15] VITALS (11 sets, daily range): BP systolic 111–134; BP diastolic 66–106; PULSE 82–108; RESP 20–42; TEMP 36.2–36.8; O2SAT 92–97
[2021-07-15] MEDS: HYDROcodone-acetaminophen 5-325 mg Tablet 1 TAB PO (01:35)
[2021-07-15] MEDS: morphine 10 mg/0.5 mL oral liq UD PO ×5 (03:25→18:32)
--- NOTE | 2021-07-15 03:53 | PC.NURSE ---
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 pain meds have been given to help for comfort and air hunger but seem to have little affect. at bedside.
--- NOTE | 2021-07-15 11:48 | PC.CHAP ---
Pastoral Care Encounter/Spiritual Assessment Type of Contact [] Declined bonderite operator visit [] Patient/Family/Request visit [] Outpatient visit [] Follow-up visit [] Physician referral [] Code/Alert [] Routine visit [X] Staff referral [] Actively dying [] Patient sleeping [] Family support [] [] Out of room [X] Palliative care [] [] Receiving care in room [] Pre-surgical visit [] Trauma [] Long length of stay [] ICU visit [X] Other: present for visit Relational/Emotional Strength [X] Patient feels connected with others/family/visitors/staff [] Distress [] Loneliness/isolation [] Abandonment Spirituality of Patient [X] Person of Tamera [] Attends Cheondoism of their Tamera [X] Believes in Prayer [] Reads Bible or Scientologist materials [] There are Spiritual issues to be addressed Medical Technologist Hematology Interventions [X] Prayer [X] Active listening [X] Non-anxious presence [] Spiritual/emotional support [] Crisis/trauma care [] Spiritual counseling [] Bereavement support [X] Provided bereavement packet [] Provided Bible/devotional materials [] Provided toy/stuffed animal, coloring book to patient or family member [] Provided Communion [] Anointing/[place] [] Salvation [X] Completed spiritual assessment [] Other: Impact on Illness or Injury [] Angry [] Fearful [] Anxious [] Often cries [] Exhaustion [] Unable to work [] Unable to attend pentecostalism [] Unable to walk/stand [] Unable to read [] Unable to drive [] Unable to eat/drink [] Unable to sleep [] Unable to be with family [] Patient intubated [] Other: Summary: Nursing staff asked bonderite operator to visit pt stating that she is now on comfort care. Pt was sitting on side of bed with labored breathing trying to eat. Pt's speech is difficult to understand. 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 When asked how bonderite operator could join with them in prayer, pt said, miracle. 's prayer is for her to have no pain. Family from [place] was waiting to enter room when bonderite operator visit ended. Prayer offered and bereavement materials provided to . Time spent with patient: 20 mins
[2021-07-15] MEDS: LORazepam 2 mg/mL INJ 1 mL IVP ×2 (13:43→16:57)
--- NOTE | 2021-07-15 15:55 | P.PN_ITS ---
Subjective Subjective: Interval history: This morning patient was seen, she is tachypneic, responds to her name, does awaken, but does not follow commands, currently on oxygen mask, 10 to 12 L, has evidence of belly breathing, intercostal retractions, nasal flaring, increased crackles on exam nursing staff have notified me that her respiratory status has worsened, her mental status has worsened, there are plans on getting her home on hospice, however her at bedside is worried that she will make it home, was at bedside during my examination, he wants to pursue comfort care in the hospital, discussed the risk and benefits, he wishes any, all questions answered agreed to proceed, he does not want her to suffer, he wants to minimize her pain, he just wants her to be comfortable. We will proceed with comfort care here in the hospital, for postobstructive pneumonia secondary to malignancy, with acute respiratory failure, acute encephalopathy secondary to hypoxia, pneumonia, Vitals/I&O/Wt Last Vital Signs Temp 97.2 F L 07/15/21 08:00 Pulse 92 07/15/21 08:00 Resp 28 H 07/15/21 08:00 BP 123/76 07/15/21 08:00 Pulse Ox 92 07/15/21 08:00 07/15/21 07/15/21 07/15/21 06:59 14:59 22:59 Intake Total 500 / 1340 480 / 480 Output Total 175 / 175 Balance 325 / 1165 480 / 480 Physical Exam Const: EXAM LIMITATIONS: altered mental status GENERAL APPEARANCE: in distress, ill appearing and frail appearing ORIENTATION/CONSCIOUSNESS: Yes awake and Yes confused; not oriented to person, not oriented to place and not oriented to time Resp: EFFORT & INSPECTION: Yes tachypneic and Yes labored AUSCULTATION: crackles Cardio: COMMON NORMALS: S1 normal heart sound present and S2 normal heart sound present RATE: tachycardic HEART SOUNDS: S1 normal heart sound present and S2 normal heart sound present GI: COMMON NORMALS: Normal to inspection, nondistended, normoactive bowel sounds present, Soft to palpation and non-tender PALPATION: Yes Soft to palpation Extremity: COMMON NORMALS: no pedal edema Neuro: SENSORIUM/ORIENTATION: No oriented to person, No oriented to place and No oriented to time Urinary Catheter Management^: Prajapati: Cath Placed During This Visit: yes Reason for Continuing Indwelling Catheter: Accurate Measurement of Urinary Output in Critically Ill Patients Urinary Catheter Date of Insertion: 07/12/21 Urinary Catheter Time of Insertion: 22:16 Data : 07/14/21 10:38 07/14/21 10:38 Micro: Microbiology 07/09/21 19:40 Blood Culture - Final Blood NO GROWTH AFTER 5 DAYS 07/09/21 19:55 Blood Culture - Final Blood NO GROWTH AFTER 5 DAYS A&P Assessment and plan (1) Postobstructive pneumonia: Proceeding with comfort care for acute hypoxic respiratory failure secondary to postobstructive pneumonia, acute encephalopathy secondary to hypoxia postobstructive pneumonia, with evidence of adenocarcinoma of the lung, with pericardial involvement Had again had a difficult night with orthopnea, weak, dyspneic. After careful consideration she and her decided that they would not pursue the arranged transfer for additional assessment and treatment at [facility], instead requesting transition to hospice care with comfort measures initiated here, requesting to discontinue antibiotics and other aggressive measures. Discussed with case management who will get in touch with hospice to start working with family. states that a ramp is being built to their house so that she may come in by wheelchair if she makes at home. Initiated comfort medications. Left lower lobe pneumonia with postobstructive features. 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 On PET scan in March a spot on the left vocal cord had lit up for which we will also need additional outpatient evaluation by ENT as per discussion with oncology. 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 Status: Acute (2) Chest pain: Status: Acute (3) Diastolic heart failure: Status: Acute (4) Edema: Bilateral lower extremity 3+ edema. Secondary to CHF Status: Acute (5) Pleural effusion: Status: Acute (6) Hyperkalemia: Resolved Status: Acute (7) HARRIS (acute kidney injury): Resolved. Unremarkable CK. Status: Acute (8) Bradycardia: Resolved. Status: Acute Additional A&P Information A. fib with RVR: Maintain amiodarone, metoprolol for now for comfort as she gets more uncomfortable with tachycardia, if she is able to take pills. Adenocarcinoma of lung: Decided not to pursue further evaluation or treatment. Pending appointment with ENT for evaluation of incidental abnormality seen in left vocal cord Has history of left-sided recurrent chest pain, chronic neck pain Attestations Medical Necessity Statement*: Proceeding with comfort care inpatient Coding Level of Care Code Acute Screw Machine Set Up Operator Tool for Chg Fwd Diagnoses Postobstructive pneumonia J18.9 Chest pain R07.9 Diastolic heart failure I50.30 Edema R60.9 Pleural effusion J90 Hyperkalemia E87.5 HARRIS (acute kidney injury) N17.9 Bradycardia R00.1
--- NOTE | 2021-07-15 19:45 | PC.NURSE ---
Shift Note Frequent safety and comfort rounds continue. Orders and/or nursing care completed as indicated. Patient monitored for response to intervention and treatment(s). Education provided includes comfort care. Patient and/or merchandiser retail representative family verbalized understanding. Will continue to monitor.
--- NOTE | 2021-07-15 20:59 | PC.NURSE ---
Dr Aguilar notified of pt
--- NOTE | 2021-07-15 21:02 | PC.NURSE ---
MTS: pt released from [facility], Awaiting Saving Site.
--- NOTE | 2021-07-15 21:58 | PC.NURSE ---
patient at 2034 with family at bedside. confirmed by two RN, Martina RN and Eriberto Delgado RN, cook house supervisor notified.
--- NOTE | 2021-07-16 00:39 | PC.NURSE ---
patient's body released to [facility] at 2350.
--- NOTE | 2021-07-23 18:32 | P.DES_ITS ---
Discharge Providers DDS Date of Admission: 07/09/21 21:25 Date Summary Completed: 07/23/21 Attending Provider at Admission: Vimal Lockwood MD Time of : 20:25 Attending Provider at Discharge: Pablito Paulino MD Primary Care Provider: Isabella Perez MD DS Diagnoses Hospital Diagnoses (1) Postobstructive pneumonia: (2) Chest pain: (3) Diastolic heart failure: (4) Edema: (5) Pleural effusion: (6) Hyperkalemia: (7) HARRIS (acute kidney injury): (8) Bradycardia: Reason for Visit Reason for Visit: BRADYCARDIA Summary Date and Time of Date of : 07/15/21 Time of : 20:25 Summary Summary: This is a 66-year-old female with past medical history of atrial fibrillation, COPD, diabetes, GERD, hyperlipidemia, hypertension, adenocarcinoma per ultrasound-guided endobronchial biopsy of left hilar mass, with hypermetabolic lymph nodes in the left hilum, hypermetabolic focus in the left vocal cord who presents to [facility] due to dizziness, presyncope, and left-sided chest pain Patient was admitted to [facility] for postobstructive pneumonia with acute hypoxic respiratory failure, with underlying adenocarcinoma of the lung, acute encephalopathy, she was managed on the cardiac stepdown unit, oxygen therapy, broad-spectrum antibiotic therapy, and clinically monitored. Patient continued to have dyspnea, persistent hypoxia, weakness, despite medical interventions. Options that were discussed with family were transfer to higher level of care versus hospice and comfort care measures. After discussion of the risks and benefits all options, family wanted to proceed with comfort care. Patient 07/15/2021 at 2025 PM Additional Data Confirmation of as documented by pronouncing clinician: no pulse Family: at bedside Additional persons at bedside: nursing staff Attending/PCP notified?: Attending notified Was code activated?: No Autopsy requested?: No Advance directives?: Yes Discharge Plan Discharge Patient Disposition: Condition: Stable Probable Cause of Probable cause of : Cardiac arrest DS Attestations Time Spent in /Discharge Care*: less than 30 min Quality - AMI: AMI present?: No Quality - Stroke: CVA present?: No Symptom Onset Unknown: No Quality - VTE: VTE present?: No Deep Vein Thrombosis/Pulmonary Embolism Present on Admission: No Coding Level of Care Code Acute Surface Logging Systems Logger for Chg Fwd Diagnoses Postobstructive pneumonia J18.9 Chest pain R07.9 Diastolic heart failure I50.30 Edema R60.9 Pleural effusion J90 Hyperkalemia E87.5 HARRIS (acute kidney injury) N17.9 Bradycardia R00.1
== END 2021-07-15 23:50 | disposition expired | DRG 193 ==
LOC: ER 19:32 → ICU 21:26 → CSU 07-10 18:03
PROVIDERS: Family Medicine; Internal Medicine; Admitting Provider Internal Medicine; Emergency Provider Emergency Medicine; PCP Family Medicine; Visit Provider Family Medicine
DX: J18.9 Pneumonia, unspecified organism (principal); J96.01 Acute respiratory failure with hypoxia; I50.31 Acute diastolic (congestive) heart failure; C34.02 Malignant neoplasm of left main bronchus; C77.1 Secondary and unspecified malignant neoplasm of intrathoracic lymph nodes; C79.89 Secondary malignant neoplasm of other specified sites; J44.0 Chronic obstructive pulmonary disease with (acute) lower respiratory infection; N17.9 Acute kidney failure, unspecified; G93.40 Encephalopathy, unspecified; J38.3 Other diseases of vocal cords; I48.91 Unspecified atrial fibrillation; I95.9 Hypotension, unspecified; Z87.891 Personal history of nicotine dependence; K21.9 Gastro-esophageal reflux disease without esophagitis; E87.5 Hyperkalemia; F41.9 Anxiety disorder, unspecified; E11.9 Type 2 diabetes mellitus without complications; E04.9 Nontoxic goiter, unspecified; E78.5 Hyperlipidemia, unspecified; R00.1 Bradycardia, unspecified; G89.29 Other chronic pain; M54.2 Cervicalgia; M89.9 Disorder of bone, unspecified; Z51.5 Encounter for palliative care; I46.9 Cardiac arrest, cause unspecified
CPT/HCPCS: 36415; 36416; 51702; 70470; 71045; 71250; 71260; 74177; 80048; 80053; 80162; 80202; 81001; 82550; 82962; 83735; 83880; 84145; 84443; 84484; 85025; 86140; 86403; 87040; 87449; 87641; 93005; 93308; 94640; 94669; 96365; 96367; 96372; 99285; J1650; J1940; J2060; J2270; J2543; J3370; J3475; J3490; J7050; Q9967